=== PATIENT | male | born 1980 | race Caucasian/White ===

== ENCOUNTER 2017-08-10 16:03 | Inpatient (IN) | payer MEDICAID ==
[~2017-08-10] VITALS: Ht 175.3 cm; Wt 85.9 kg
[2017-08-10] MEDS ORDERED: TRAM50TA4 PO (16:10)
[2017-08-10 16:39] LABS: BASOPHILS % (AUTO) 0.3 % (0.0-2.0); EOSINOPHILS % (AUTO) 1.8 % (1.0-6.0); HEMATOCRIT 35.7 % (41-53); HEMOGLOBIN 12.7 g/dL (13.5-17.5); LYMPHOCYTES # (AUTO) 0.3 K/uL (1.0-4.8); LYMPHOCYTES % (AUTO) 11.7 % (22.0-44.0); MEAN CORPUSCULAR HEMOGLOBIN 32.7 pg (26.0-34.0); MEAN CORPUSCULAR HGB CONC 35.6 G/dL (31.0-37.0); MEAN CORPUSCULAR VOLUME 92 fL (80-100); MONOCYTES # (AUTO) 0.4 K/uL (0.1-1.0); MONOCYTES % (AUTO) 14.3 % (2.0-9.0); NEUTROPHILS % (AUTO) 71.9 % (40.0-70.0); PLATELET COUNT (AUTO) 111 K/uL (150-450); RED BLOOD CELL COUNT(AUTO) 3.89 MIL/uL (4.50-5.90); RED CELL DISTRIBUTION WIDTH 17.2 % (11.5-14.5); WHITE BLOOD COUNT (AUTO) 2.8 K/uL (4.5-11.0)
[2017-08-10 17:00] LABS: ANION GAP 8 mmol/L (8-16); CALCIUM, TOTAL 9.3 mg/dL (8.8-10.5); CARBON DIOXIDE 28 mmol/L (22-29); CHLORIDE 107 mmol/L (98-107); CREATININE 0.99 mg/dL (0.60-1.30); GLOMERULAR FILTR. RATE CALC > 60 mL/min (>60); POTASSIUM 3.9 mmol/L (3.5-5.1); SODIUM SERUM 143 mmol/L (136-145); UREA NITROGEN, BLOOD 6 mg/dL (7-18)
[2017-08-10 17:05] LABS: ALANINE AMINOTRANSFERASE 120 U/L (12-78); ALBUMIN 3.8 g/dL (3.4-5.0); ASPARTATE AMINOTRANSFERASE 98 U/L (15-37); BILIRUBIN,TOTAL 0.3 mg/dL (0.1-1.0); TOTAL PROTEIN, SERUM 6.8 g/dL (6.4-8.2)
[2017-08-10 17:37] LABS: RBC MORPHOLOGY COMMENT ABNORMAL RBC MORPH
[2017-08-10] MEDS ORDERED: LORazepam 1 MG TABLET PO ONE (18:30)
[2017-08-10] MEDS ORDERED: TraMADol HCL 50 MG TABLET PO ONE (18:30)
[2017-08-10] MEDS ORDERED: ZOLPIDEM TARTRATE 10 MG TABLET PO PRN (18:45)
[2017-08-10] MEDS ORDERED: HALOPERIDOL 5 MG TABLET PO PRN (18:45)
[2017-08-10] MEDS ORDERED: LORazepam 2 MG TABLET PO PRN (18:45)
[2017-08-10 20:20] VITALS: BP 122/88
[2017-08-10 20:42] LABS: CHOL/HDL RATIO 2.9 (4.2-7.3)
[2017-08-10] MEDS: LITHIUM CARBONATE 300 MG CAPSULE PO SCH (21:26)
[2017-08-10] MEDS: OLANZapine 10 MG TABLET PO SCH (21:26)
[2017-08-10] MEDS ORDERED: IBUPROFEN 600 MG TABLET PO PRN (22:15)
[2017-08-10] MEDS ORDERED: ACETAMINOPHEN 325 MG TABLET PO PRN (22:15)
[2017-08-11 08:30] VITALS: BP 125/86
[2017-08-11] MEDS ORDERED: PETROLATUM,WHITE 71 GM JELLY TP PRN (08:45)
[2017-08-11] MEDS ORDERED: CloNIDine HCL 0.1 MG TABLET PO PRN (08:45)
[2017-08-11] MEDS ORDERED: LOPERAMIDE HCL 2 MG CAPSULE PO PRN (08:45)
[2017-08-11] MEDS ORDERED: BACITRACIN 28.4 GM OINTMENT TP PRN (08:45)
[2017-08-11] MEDS ORDERED: IBUPROFEN 600 MG TABLET PO PRN (08:45)
[2017-08-11] MEDS ORDERED: BENZOCAINE/MENTHOL LOZENGE [8 LOZENGES/PACKET] MM PRN (08:45)
[2017-08-11] MEDS ORDERED: MAGNESIUM HYDROXIDE SUSPENSION 30 ML UDCUP PO PRN (08:45)
[2017-08-11] MEDS ORDERED: ACETAMINOPHEN 325 MG TABLET PO PRN (08:45)
[2017-08-11] MEDS ORDERED: ALBUTEROL SULFATE HFA 90 MCG/PUFF 8 GM INHALER IH PRN (08:45)
[2017-08-11] MEDS ORDERED: ONDANSETRON HCL 4 MG TABLET PO PRN (08:45)
[2017-08-11] MEDS ORDERED: MAG HYDROX/AL HYDROX/SIMETH ES 30 ML SUSPENSION UDCUP PO PRN (08:45)
[2017-08-11] MEDS: LITHIUM CARBONATE 300 MG CAPSULE PO SCH ×2 (09:13→17:38)
[2017-08-11 11:58] VITALS: BP 130/90
[2017-08-11] MEDS: TraMADol HCL 50 MG TABLET PO PRN ×2 (11:58→20:05)
[2017-08-11 20:04] VITALS: BP 128/79
[2017-08-11] MEDS: OLANZapine 10 MG TABLET PO SCH (20:22)
[2017-08-11 21:04] VITALS: BP 119/72
[2017-08-12 06:51] LABS: BASOPHILS % (AUTO) 0.6 % (0.0-2.0); EOSINOPHILS % (AUTO) 3.3 % (1.0-6.0); HEMATOCRIT 36.9 % (41-53); LYMPHOCYTES # (AUTO) 0.7 K/uL (1.0-4.8); LYMPHOCYTES % (AUTO) 34.4 % (22.0-44.0); MEAN CORPUSCULAR HEMOGLOBIN 32.7 pg (26.0-34.0); MEAN CORPUSCULAR HGB CONC 35.2 G/dL (31.0-37.0); MEAN CORPUSCULAR VOLUME 93 fL (80-100); MONOCYTES # (AUTO) 0.3 K/uL (0.1-1.0); MONOCYTES % (AUTO) 14.3 % (2.0-9.0); NEUTROPHILS % (AUTO) 47.4 % (40.0-70.0); PLATELET COUNT (AUTO) 114 K/uL (150-450); RED BLOOD CELL COUNT(AUTO) 3.97 MIL/uL (4.50-5.90); WHITE BLOOD COUNT (AUTO) 2.2 K/uL (4.5-11.0)
[2017-08-12 07:18] LABS: AMYLASE 78 U/L (25-115); ANION GAP 7 mmol/L (8-16); CALCIUM, TOTAL 8.9 mg/dL (8.8-10.5); CARBON DIOXIDE 29 mmol/L (22-29); CHLORIDE 106 mmol/L (98-107); CHOL/HDL RATIO 2.7 (4.2-7.3); CREATININE 0.89 mg/dL (0.60-1.30); GLOMERULAR FILTR. RATE CALC > 60 mL/min (>60); POTASSIUM 3.3 mmol/L (3.5-5.1); SODIUM SERUM 142 mmol/L (136-145); THYROID STIMULATING HORMONE 3.05 uIU/mL (0.36-3.74); UREA NITROGEN, BLOOD 7 mg/dL (7-18)
[2017-08-12 08:34] VITALS: BP 118/71
[2017-08-12] MEDS ORDERED: POTASSIUM CHLORIDE 20 MEQ ER TABLET PO ONE (08:45)
[2017-08-12] MEDS: LITHIUM CARBONATE 300 MG CAPSULE PO SCH ×2 (09:11→17:44)
[2017-08-12] MEDS: CHOLECALCIFEROL (VIT D3) 1,000 UNITS TABLET PO SCH (09:11)
[2017-08-12] MEDS: TraMADol HCL 50 MG TABLET PO PRN ×2 (09:12→18:05)
[2017-08-12 18:00] VITALS: BP 121/74
[2017-08-12 18:38] VITALS: BP 111/67
[2017-08-12] MEDS: OLANZapine 10 MG TABLET PO SCH (20:36)
[2017-08-13 08:58] VITALS: BP 114/65
[2017-08-13] MEDS: TraMADol HCL 50 MG TABLET PO PRN ×2 (09:00→18:21)
[2017-08-13] MEDS: CHOLECALCIFEROL (VIT D3) 1,000 UNITS TABLET PO SCH (09:00)
[2017-08-13] MEDS: LITHIUM CARBONATE 300 MG CAPSULE PO SCH ×2 (09:00→16:34)
[2017-08-13 12:15] LABS: HEPATITIS Bs ANTIGEN SCREEN P Negative (Negative); HEPATITIS C AB SCREEN <0.1 s/co ratio (0.0-0.9)
[2017-08-13 18:22] VITALS: BP 124/73
[2017-08-13] MEDS: OLANZapine 10 MG TABLET PO SCH (20:09)
[2017-08-14] MEDS: CHOLECALCIFEROL (VIT D3) 1,000 UNITS TABLET PO SCH (08:49)
[2017-08-14] MEDS: LITHIUM CARBONATE 300 MG CAPSULE PO SCH ×2 (08:49→17:00)
[2017-08-14 08:54] VITALS: BP 99/62
[2017-08-14] MEDS: TraMADol HCL 50 MG TABLET PO PRN ×2 (08:54→17:58)
[2017-08-14 17:48] VITALS: BP 117/62
[2017-08-14] MEDS: OLANZapine 10 MG TABLET PO SCH (20:29)
[2017-08-15 08:27] VITALS: BP 117/76
[2017-08-15] MEDS: CHOLECALCIFEROL (VIT D3) 1,000 UNITS TABLET PO SCH (09:03)
[2017-08-15] MEDS: LITHIUM CARBONATE 300 MG CAPSULE PO SCH ×2 (09:04→17:52)
[2017-08-15] MEDS: TraMADol HCL 50 MG TABLET PO PRN ×2 (09:04→17:53)
[2017-08-15 16:22] VITALS: BP 113/74
[2017-08-15 17:53] VITALS: BP 120/74
[2017-08-15 18:53] VITALS: BP 126/76
[2017-08-15] MEDS: OLANZapine 10 MG TABLET PO SCH (21:01)
[2017-08-16 08:30] VITALS: BP 119/70
[2017-08-16] MEDS: CHOLECALCIFEROL (VIT D3) 1,000 UNITS TABLET PO SCH (08:59)
[2017-08-16] MEDS: LITHIUM CARBONATE 300 MG CAPSULE PO SCH ×2 (08:59→17:08)
[2017-08-16] MEDS: TraMADol HCL 50 MG TABLET PO PRN ×2 (09:01→17:08)
[2017-08-16] MEDS ORDERED: OLAN10TA3 PO (15:40)
[2017-08-16] MEDS ORDERED: LITH300C3 PO (15:40)
[2017-08-16] MEDS ORDERED: VITAD1000 PO (15:43)
[2017-08-16 17:08] VITALS: BP 126/89
== END 2017-08-16 19:15 | disposition home or self-care (01) | DRG 885 ==
LOC: EMS 16:09 → 3EI 19:00
DX: F31.4 Bipolar disorder, current episode depressed, severe, without psychotic features (principal); D61.818 Other pancytopenia; R45.851 Suicidal ideations; F10.10 Alcohol abuse, uncomplicated; G47.00 Insomnia, unspecified; I10 Essential (primary) hypertension; B19.20 Unspecified viral hepatitis C without hepatic coma; J45.909 Unspecified asthma, uncomplicated; K21.9 Gastro-esophageal reflux disease without esophagitis; Z59.0 Homelessness; Z71.41 Alcohol abuse counseling and surveillance of alcoholic
CPT/HCPCS: 80074; 82306; 83036; 84132; 84443; 87081; 99285; G0480

== ENCOUNTER 2017-09-04 10:13 | Inpatient (IN) | payer MEDICAID ==
[~2017-09-04] VITALS: Ht 175.3 cm; Wt 92.9 kg
[~2017-09-04 10:13] MED LIST: LITH300C3 PO; OLAN10TA3 PO; VITAD1000 PO
[2017-09-04] MEDS ORDERED: PROP10TA73 PO (10:17)
[2017-09-04] MEDS ORDERED: TRAZ-144 PO (10:17)
[2017-09-04] MEDS ORDERED: HALOPERIDOL 5 MG TABLET PO PRN (11:30)
[2017-09-04 11:33] LABS: BASOPHILS # (AUTO) 0.01 K/uL (0.00-0.20); BASOPHILS % (AUTO) 0.3 % (0.0-2.0); EOSINOPHILS # (AUTO) 0.15 K/uL (0.00-0.70); HEMATOCRIT 36.3 % (41-53); HEMOGLOBIN 12.3 g/dL (13.5-17.5); LYMPHOCYTES # (AUTO) 0.8 K/uL (1.0-4.8); LYMPHOCYTES % (AUTO) 18.1 % (22.0-44.0); MEAN CORPUSCULAR HGB CONC 33.9 G/dL (31.0-37.0); MEAN CORPUSCULAR VOLUME 95 fL (80-100); MONOCYTES # (AUTO) 0.4 K/uL (0.1-1.0); MONOCYTES % (AUTO) 9.1 % (2.0-9.0); NEUTROPHILS # (AUTO) 3.1 K/uL (1.8-7.7); NEUTROPHILS % (AUTO) 69.2 % (40.0-70.0); PLATELET COUNT (AUTO) 186 K/uL (150-450); RED BLOOD CELL COUNT(AUTO) 3.84 MIL/uL (4.50-5.90); RED CELL DISTRIBUTION WIDTH 15.1 % (11.5-14.5)
[2017-09-04 11:39] LABS: ANION GAP 7 mmol/L (8-16); CALCIUM, TOTAL 9.2 mg/dL (8.8-10.5); CARBON DIOXIDE 29 mmol/L (22-29); CHLORIDE 109 mmol/L (98-107); CREATININE 0.94 mg/dL (0.60-1.30); GLOMERULAR FILTR. RATE CALC > 60 mL/min (>60); GLUCOSE,RANDOM 98 mg/dL (70-110); POTASSIUM 4.3 mmol/L (3.5-5.1); SODIUM SERUM 145 mmol/L (136-145); UREA NITROGEN, BLOOD 15 mg/dL (7-18)
[2017-09-04 11:42] LABS: AMPHET/METH SCREEN,URINE NEGATIVE (NEGATIVE); BARBITURATE SCREEN, URINE NEGATIVE (NEGATIVE); BENZODIAZEPINES SCREEN,URINE NEGATIVE (NEGATIVE); CANNABINOID SCREEN,URINE NEGATIVE (NEGATIVE); COCAINE SCREEN,URINE NEGATIVE (NEGATIVE); METHADONE SCREEN, URINE NEGATIVE (NEGATIVE); OPIATE SCREEN,URINE NEGATIVE (NEGATIVE)
[2017-09-04 11:45] LABS: ALANINE AMINOTRANSFERASE 26 U/L (12-78); ALBUMIN 3.8 g/dL (3.4-5.0); ALKALINE PHOSPHATASE 78 U/L (46-116); ASPARTATE AMINOTRANSFERASE 12 U/L (15-37); BILIRUBIN,TOTAL 0.3 mg/dL (0.1-1.0); TOTAL PROTEIN, SERUM 6.9 g/dL (6.4-8.2)
[2017-09-04 11:46] LABS: PHENCYCLIDINE SCREEN,URINE NEGATIVE (NEGATIVE)
[2017-09-04 16:18] VITALS: BP 113/65
[2017-09-04] MEDS ORDERED: IBUPROFEN 600 MG TABLET PO PRN (16:45)
[2017-09-04] MEDS ORDERED: ACETAMINOPHEN 325 MG TABLET PO PRN (16:45)
[2017-09-04 16:52] VITALS: BP 119/72
[2017-09-04] MEDS: LORazepam 2 MG TABLET PO PRN (16:54)
[2017-09-04] MEDS: TraMADol HCL 50 MG TABLET PO PRN (16:54)
[2017-09-04 17:54] VITALS: BP 114/69
[2017-09-04] MEDS: ZOLPIDEM TARTRATE 10 MG TABLET PO PRN (20:23)
[2017-09-05 03:45] VITALS: BP 120/82
[2017-09-05] MEDS: TraMADol HCL 50 MG TABLET PO PRN ×3 (03:47→19:44)
[2017-09-05] MEDS: LORazepam 2 MG TABLET PO PRN ×3 (05:03→19:44)
[2017-09-05] MEDS ORDERED: PNEUMOCOCCAL VACCINE POLYVALENT 0.5 ML VIAL [PPSV23] IM ONE (06:00)
[2017-09-05 06:02] VITALS: BP 110/65
[2017-09-05 08:24] VITALS: BP 115/66
[2017-09-05] MEDS: CHOLECALCIFEROL (VIT D3) 1,000 UNITS TABLET PO SCH (08:26)
[2017-09-05] MEDS: PANTOPRAZOLE SODIUM 40 MG DR TABLET PO SCH (08:26)
[2017-09-05 08:32] LABS: CHOL/HDL RATIO 3.1 (4.2-7.3)
[2017-09-05 11:53] VITALS: BP 107/76
[2017-09-05] MEDS ORDERED: BENZOCAINE/MENTHOL LOZENGE MM PRN (15:15)
[2017-09-05] MEDS ORDERED: CloNIDine HCL 0.1 MG TABLET PO PRN (15:15)
[2017-09-05] MEDS ORDERED: LOPERAMIDE HCL 2 MG CAPSULE PO PRN (15:15)
[2017-09-05] MEDS ORDERED: PETROLATUM,WHITE 71 GM JELLY TP PRN (15:15)
[2017-09-05] MEDS ORDERED: ONDANSETRON HCL 4 MG TABLET PO PRN (15:15)
[2017-09-05] MEDS ORDERED: MAG HYDROX/AL HYDROX/SIMETH ES 30 ML SUSPENSION UDCUP PO PRN (15:15)
[2017-09-05] MEDS ORDERED: ALBUTEROL SULFATE HFA 90 MCG/PUFF 8 GM INHALER IH PRN (15:15)
[2017-09-05] MEDS ORDERED: BACITRACIN 28.4 GM OINTMENT TP PRN (15:15)
[2017-09-05 16:00] VITALS: BP 111/72
[2017-09-05] MEDS: LITHIUM CARBONATE 300 MG CAPSULE PO SCH (16:00)
[2017-09-05] MEDS: DOCUSATE SODIUM 100 MG CAPSULE PO SCH (16:10)
[2017-09-05] MEDS: OLANZapine 10 MG TABLET PO SCH (20:06)
[2017-09-05] MEDS: TraZODone HCL 50 MG TABLET PO SCH (20:06)
[2017-09-06] MEDS: TraMADol HCL 50 MG TABLET PO PRN ×2 (05:59→14:28)
[2017-09-06 06:16] VITALS: BP_SYST 107; BP_SYST 114; BP_DIAS 72
[2017-09-06] MEDS: LORazepam 2 MG TABLET PO PRN ×3 (06:25→15:47)
[2017-09-06 08:13] VITALS: BP 114/71
[2017-09-06] MEDS: DOCUSATE SODIUM 100 MG CAPSULE PO SCH (08:38)
[2017-09-06] MEDS: PANTOPRAZOLE SODIUM 40 MG DR TABLET PO SCH (08:38)
[2017-09-06] MEDS: LITHIUM CARBONATE 300 MG CAPSULE PO SCH ×2 (08:38→14:18)
[2017-09-06] MEDS: CHOLECALCIFEROL (VIT D3) 1,000 UNITS TABLET PO SCH (08:38)
[2017-09-06] MEDS: OMEGA-3/DHA/EPA/FISH OIL 1,000 MG CAPSULE PO SCH (08:38)
[2017-09-06 14:28] VITALS: BP 121/67
[2017-09-06 16:00] VITALS: BP 126/72
[2017-09-06] MEDS: MAGNESIUM HYDROXIDE SUSPENSION 30 ML UDCUP PO PRN (16:00)
[2017-09-06] MEDS: TraZODone HCL 50 MG TABLET PO SCH (20:04)
[2017-09-06] MEDS: OLANZapine 10 MG TABLET PO SCH (20:05)
[2017-09-07 02:15] VITALS: BP 107/75
[2017-09-07] MEDS: TraMADol HCL 50 MG TABLET PO PRN ×3 (03:35→20:02)
[2017-09-07] MEDS: LORazepam 2 MG TABLET PO PRN ×4 (03:35→17:49)
[2017-09-07] MEDS: MULTIVITAMINS WITH IRON TABLET PO SCH (06:55)
[2017-09-07 08:36] VITALS: BP 116/70
[2017-09-07] MEDS: OMEPRAZOLE 20 MG CAPSULE PO SCH (08:56)
[2017-09-07] MEDS: CHOLECALCIFEROL (VIT D3) 1,000 UNITS TABLET PO SCH (08:56)
[2017-09-07] MEDS: DOCUSATE SODIUM 100 MG CAPSULE PO SCH (08:56)
[2017-09-07] MEDS: LITHIUM CARBONATE 300 MG CAPSULE PO SCH ×2 (08:56→15:56)
[2017-09-07] MEDS: OMEGA-3/DHA/EPA/FISH OIL 1,000 MG CAPSULE PO SCH (08:57)
[2017-09-07 16:32] VITALS: BP 120/79
[2017-09-07 20:02] VITALS: BP 124/76
[2017-09-07] MEDS: OLANZapine 10 MG TABLET PO SCH (20:02)
[2017-09-07] MEDS: TraZODone HCL 50 MG TABLET PO SCH (20:02)
[2017-09-08 05:11] VITALS: BP 125/68
[2017-09-08] MEDS: TraMADol HCL 50 MG TABLET PO PRN ×3 (05:13→20:32)
[2017-09-08] MEDS: LORazepam 2 MG TABLET PO PRN ×4 (05:13→20:58)
[2017-09-08] MEDS: MULTIVITAMINS WITH IRON TABLET PO SCH (06:57)
[2017-09-08 08:46] VITALS: BP 108/69
[2017-09-08] MEDS: OMEPRAZOLE 20 MG CAPSULE PO SCH (09:08)
[2017-09-08] MEDS: LITHIUM CARBONATE 300 MG CAPSULE PO SCH ×2 (09:08→14:17)
[2017-09-08] MEDS: CHOLECALCIFEROL (VIT D3) 1,000 UNITS TABLET PO SCH (09:08)
[2017-09-08] MEDS: DOCUSATE SODIUM 100 MG CAPSULE PO SCH (09:09)
[2017-09-08] MEDS: OMEGA-3/DHA/EPA/FISH OIL 1,000 MG CAPSULE PO SCH (09:09)
[2017-09-08 13:17] VITALS: BP 114/68
[2017-09-08 16:28] VITALS: BP 112/70
[2017-09-08] MEDS: MAGNESIUM HYDROXIDE SUSPENSION 30 ML UDCUP PO PRN (16:35)
[2017-09-08] MEDS: OLANZapine 10 MG TABLET PO SCH (20:23)
[2017-09-08] MEDS: TraZODone HCL 50 MG TABLET PO SCH (20:23)
[2017-09-09 05:18] VITALS: BP 115/69
[2017-09-09] MEDS: LORazepam 2 MG TABLET PO PRN ×3 (05:21→16:05)
[2017-09-09] MEDS: TraMADol HCL 50 MG TABLET PO PRN ×3 (05:22→22:12)
[2017-09-09] MEDS: MULTIVITAMINS WITH IRON TABLET PO SCH (07:05)
[2017-09-09 08:03] VITALS: BP 108/62
[2017-09-09] MEDS: DOCUSATE SODIUM 100 MG CAPSULE PO SCH (09:09)
[2017-09-09] MEDS: OMEGA-3/DHA/EPA/FISH OIL 1,000 MG CAPSULE PO SCH (09:09)
[2017-09-09] MEDS: OMEPRAZOLE 20 MG CAPSULE PO SCH (09:09)
[2017-09-09] MEDS: CHOLECALCIFEROL (VIT D3) 1,000 UNITS TABLET PO SCH (09:09)
[2017-09-09] MEDS: LITHIUM CARBONATE 300 MG CAPSULE PO SCH ×2 (09:09→15:01)
[2017-09-09] MEDS: MAGNESIUM HYDROXIDE SUSPENSION 30 ML UDCUP PO PRN (11:29)
[2017-09-09 13:50] VITALS: BP 128/72
[2017-09-09 16:25] VITALS: BP 117/77
[2017-09-09] MEDS: TraZODone HCL 50 MG TABLET PO SCH (20:20)
[2017-09-09] MEDS: OLANZapine 10 MG TABLET PO SCH (20:20)
[2017-09-10 05:00] VITALS: BP 106/72
[2017-09-10] MEDS: LORazepam 2 MG TABLET PO PRN ×3 (05:02→17:20)
[2017-09-10] MEDS: MULTIVITAMINS WITH IRON TABLET PO SCH (06:38)
[2017-09-10] MEDS: TraMADol HCL 50 MG TABLET PO PRN ×2 (07:09→15:57)
[2017-09-10 08:04] VITALS: BP 121/62
[2017-09-10] MEDS: OMEGA-3/DHA/EPA/FISH OIL 1,000 MG CAPSULE PO SCH (08:15)
[2017-09-10] MEDS: OMEPRAZOLE 20 MG CAPSULE PO SCH (08:15)
[2017-09-10] MEDS: DOCUSATE SODIUM 100 MG CAPSULE PO SCH (08:16)
[2017-09-10] MEDS: CHOLECALCIFEROL (VIT D3) 1,000 UNITS TABLET PO SCH (08:16)
[2017-09-10] MEDS: LITHIUM CARBONATE 300 MG CAPSULE PO SCH ×2 (08:16→14:51)
[2017-09-10] MEDS: MAGNESIUM HYDROXIDE SUSPENSION 30 ML UDCUP PO PRN (08:21)
[2017-09-10] MEDS ORDERED: MAGNESIUM CITRATE 300 ML ORAL SOLUTION PO PRN (09:30)
[2017-09-10 15:55] VITALS: BP 114/69
[2017-09-10 16:38] VITALS: BP 117/65
[2017-09-10] MEDS: TraZODone HCL 50 MG TABLET PO SCH (20:03)
[2017-09-10] MEDS: OLANZapine 10 MG TABLET PO SCH (20:03)
[2017-09-10] MEDS: ZOLPIDEM TARTRATE 10 MG TABLET PO PRN (20:30)
[2017-09-11 06:25] VITALS: BP 120/77
[2017-09-11] MEDS: LORazepam 2 MG TABLET PO PRN ×4 (06:34→20:50)
[2017-09-11] MEDS: TraMADol HCL 50 MG TABLET PO PRN ×2 (06:35→14:45)
[2017-09-11] MEDS: MULTIVITAMINS WITH IRON TABLET PO SCH (06:55)
[2017-09-11 08:12] VITALS: BP 109/66
[2017-09-11] MEDS: DOCUSATE SODIUM 100 MG CAPSULE PO SCH (08:41)
[2017-09-11] MEDS: LITHIUM CARBONATE 300 MG CAPSULE PO SCH ×2 (08:41→14:26)
[2017-09-11] MEDS: CHOLECALCIFEROL (VIT D3) 1,000 UNITS TABLET PO SCH (08:41)
[2017-09-11] MEDS: OMEPRAZOLE 20 MG CAPSULE PO SCH (08:41)
[2017-09-11] MEDS: OMEGA-3/DHA/EPA/FISH OIL 1,000 MG CAPSULE PO SCH (08:41)
[2017-09-11 10:51] VITALS: BP 114/72
[2017-09-11 14:45] VITALS: BP 117/70
[2017-09-11 16:11] VITALS: BP 102/67
[2017-09-11] MEDS: OLANZapine 10 MG TABLET PO SCH (20:24)
[2017-09-11] MEDS: TraZODone HCL 50 MG TABLET PO SCH (20:24)
[2017-09-12 00:33] VITALS: BP 100/60
[2017-09-12 05:24] VITALS: BP 118/65
[2017-09-12] MEDS: TraMADol HCL 50 MG TABLET PO PRN ×3 (05:27→22:05)
[2017-09-12] MEDS: MULTIVITAMINS WITH IRON TABLET PO SCH (05:51)
[2017-09-12] MEDS: LORazepam 2 MG TABLET PO PRN ×4 (06:51→20:40)
[2017-09-12 08:25] VITALS: BP 100/68
[2017-09-12] MEDS: CHOLECALCIFEROL (VIT D3) 1,000 UNITS TABLET PO SCH (08:43)
[2017-09-12] MEDS: LITHIUM CARBONATE 300 MG CAPSULE PO SCH ×2 (08:43→14:00)
[2017-09-12] MEDS: DOCUSATE SODIUM 100 MG CAPSULE PO SCH (08:43)
[2017-09-12] MEDS: OMEGA-3/DHA/EPA/FISH OIL 1,000 MG CAPSULE PO SCH (08:44)
[2017-09-12] MEDS: OMEPRAZOLE 20 MG CAPSULE PO SCH (08:46)
[2017-09-12 16:00] VITALS: BP 115/72
[2017-09-12] MEDS: TraZODone HCL 50 MG TABLET PO SCH (20:25)
[2017-09-12] MEDS: OLANZapine 10 MG TABLET PO SCH (20:25)
[2017-09-12 22:05] VITALS: BP 111/68
[2017-09-13 00:50] VITALS: BP 104/64
[2017-09-13] MEDS: MULTIVITAMINS WITH IRON TABLET PO SCH (06:44)
[2017-09-13 06:50] VITALS: BP 110/68
[2017-09-13] MEDS: TraMADol HCL 50 MG TABLET PO PRN ×2 (06:51→14:51)
[2017-09-13] MEDS: LORazepam 2 MG TABLET PO PRN ×4 (06:51→20:08)
[2017-09-13] MEDS: OMEGA-3/DHA/EPA/FISH OIL 1,000 MG CAPSULE PO SCH (08:06)
[2017-09-13] MEDS: DOCUSATE SODIUM 100 MG CAPSULE PO SCH (08:06)
[2017-09-13] MEDS: OMEPRAZOLE 20 MG CAPSULE PO SCH (08:06)
[2017-09-13] MEDS: LITHIUM CARBONATE 300 MG CAPSULE PO SCH ×2 (08:06→15:04)
[2017-09-13] MEDS: CHOLECALCIFEROL (VIT D3) 1,000 UNITS TABLET PO SCH (08:06)
[2017-09-13 08:26] VITALS: BP 104/69
[2017-09-13 14:52] VITALS: BP 119/76
[2017-09-13 16:00] VITALS: BP 110/69
[2017-09-13] MEDS: OLANZapine 10 MG TABLET PO SCH (20:08)
[2017-09-13] MEDS: TraZODone HCL 50 MG TABLET PO SCH (20:08)
[2017-09-13] MEDS: ZOLPIDEM TARTRATE 10 MG TABLET PO PRN (20:08)
[2017-09-14 03:48] VITALS: BP 100/67
[2017-09-14] MEDS: MULTIVITAMINS WITH IRON TABLET PO SCH (06:42)
[2017-09-14] MEDS: TraMADol HCL 50 MG TABLET PO PRN (06:50)
[2017-09-14] MEDS: LORazepam 2 MG TABLET PO PRN (06:50)
[2017-09-14] MEDS: DOCUSATE SODIUM 100 MG CAPSULE PO SCH (08:06)
[2017-09-14] MEDS: OMEGA-3/DHA/EPA/FISH OIL 1,000 MG CAPSULE PO SCH (08:06)
[2017-09-14] MEDS: CHOLECALCIFEROL (VIT D3) 1,000 UNITS TABLET PO SCH (08:06)
[2017-09-14] MEDS: LITHIUM CARBONATE 300 MG CAPSULE PO SCH (08:06)
[2017-09-14] MEDS: OMEPRAZOLE 20 MG CAPSULE PO SCH (08:06)
[2017-09-14 08:42] VITALS: BP 108/60
[2017-09-14] MEDS ORDERED: OMEP20 PO (10:24)
[2017-09-14] MEDS ORDERED: TRAZ-144 PO (10:24)
[2017-09-14] MEDS ORDERED: OLAN10TA3 PO (10:24)
[2017-09-14] MEDS ORDERED: LITH600 PO ×2 (10:24)
[2017-09-14] MEDS ORDERED: OMEG-135 PO (10:47)
== END 2017-09-14 13:15 | disposition home or self-care (01) | DRG 753 ==
LOC: EMS 10:18 → B2S 12:05
PROC: 3E0234Z Introduction of Serum, Toxoid and Vaccine into Muscle, Percutaneous Approach (ICD-10-PCS; principal; 2017-09-05)
DX: F31.4 Bipolar disorder, current episode depressed, severe, without psychotic features (principal); K85.90 Acute pancreatitis without necrosis or infection, unspecified; R45.851 Suicidal ideations; I10 Essential (primary) hypertension; B19.20 Unspecified viral hepatitis C without hepatic coma; F29 Unspecified psychosis not due to a substance or known physiological condition; G47.00 Insomnia, unspecified; J45.909 Unspecified asthma, uncomplicated; K21.9 Gastro-esophageal reflux disease without esophagitis; K59.00 Constipation, unspecified; F10.20 Alcohol dependence, uncomplicated; K52.9 Noninfective gastroenteritis and colitis, unspecified; E55.9 Vitamin D deficiency, unspecified; D64.9 Anemia, unspecified; G89.29 Other chronic pain; M54.9 Dorsalgia, unspecified; Z79.899 Other long term (current) drug therapy; Z23 Encounter for immunization
CPT/HCPCS: 87081; 90471; 99285; G0480

== ENCOUNTER 2018-09-08 13:02 | Inpatient (IN) | payer MEDICAID ==
[~2018-09-08] VITALS: Ht 175.3 cm; Wt 95.7 kg
[~2018-09-08 13:02] MED LIST changes: -LITH300C3 PO; +LITH600 PO; +OMEG-135 PO; +OMEP20 PO; +TRAZ-219 PO; -VITAD1000 PO
[2018-09-08] MEDS ORDERED: GABA-531 PO (14:30)
[2018-09-08 15:04] LABS: APPEARANCE,URINE CLEAR (CLEAR); BILIRUBIN,URINE NEGATIVE (NEGATIVE); GLUCOSE, URINE (UA) NEGATIVE (NEGATIVE); KETONES,URINE TRACE mg/dL (NEGATIVE); LEUKOCYTE ESTERASE ,URINE NEGATIVE (NEGATIVE); NITRATE,URINE NEGATIVE (NEGATIVE); OCCULT BLOOD,URINE TRACE (NEGATIVE); PROTEIN,URINE POS 1+ (NEGATIVE); UROBILINOGEN,URINE 0.2 mg/dL (<=1.0)
[2018-09-08 15:10] LABS: AMPHET/METH SCREEN,URINE NEGATIVE (NEGATIVE); BARBITURATE SCREEN, URINE NEGATIVE (NEGATIVE); BENZODIAZEPINES SCREEN,URINE NEGATIVE (NEGATIVE); CANNABINOID SCREEN,URINE NEGATIVE (NEGATIVE); COCAINE SCREEN,URINE NEGATIVE (NEGATIVE); METHADONE SCREEN, URINE NEGATIVE (NEGATIVE); OPIATE SCREEN,URINE NEGATIVE (NEGATIVE); PHENCYCLIDINE SCREEN,URINE NEGATIVE (NEGATIVE)
[2018-09-08 15:42] LABS: ANION GAP 13 mmol/L (8-16); CALCIUM, TOTAL 8.7 mg/dL (8.8-10.5); CARBON DIOXIDE 26 mmol/L (22-29); CHLORIDE 102 mmol/L (98-107); CREATININE 0.83 mg/dL (0.60-1.30); GLOMERULAR FILTR. RATE CALC > 60 mL/min (>60); GLUCOSE,RANDOM 75 mg/dL (70-110); POTASSIUM 3.9 mmol/L (3.5-5.1); SODIUM SERUM 141 mmol/L (136-145); UREA NITROGEN, BLOOD 8 mg/dL (7-18)
[2018-09-08 15:44] LABS: BACTERIA,URINE None Seen /HPF (None Seen); RBC,URINE 0-2 /HPF (0-2); SQUAMOUS EPITHELIAL CELL,UR Rare /LPF (None Seen); WBC,URINE None Seen /HPF (0-5)
[2018-09-08 15:45] LABS: URIC ACID CRYSTALS,URINE Rare /LPF (None Seen)
[2018-09-08 15:48] LABS: ALANINE AMINOTRANSFERASE 162 U/L (12-78); ALBUMIN 4.1 g/dL (3.4-5.0); ALKALINE PHOSPHATASE 84 U/L (46-116); ASPARTATE AMINOTRANSFERASE 183 U/L (15-37); BILIRUBIN,TOTAL 0.5 mg/dL (0.1-1.0); LIPASE 487 U/L (73-393); TOTAL PROTEIN, SERUM 7.8 g/dL (6.4-8.2)
[2018-09-08 15:55] LABS: BASOPHILS % (AUTO) 0.7 % (0.0-2.0); EOSINOPHILS % (AUTO) 1.6 % (1.0-6.0); HEMATOCRIT 43.2 % (41-53); HEMOGLOBIN 14.8 g/dL (13.5-17.5); LYMPHOCYTES # (AUTO) 0.7 K/uL (1.0-4.8); LYMPHOCYTES % (AUTO) 32.9 % (22.0-44.0); MEAN CORPUSCULAR HEMOGLOBIN 32.5 pg (26.0-34.0); MEAN CORPUSCULAR HGB CONC 34.2 G/dL (31.0-37.0); MEAN CORPUSCULAR VOLUME 95 fL (80-100); MONOCYTES # (AUTO) 0.3 K/uL (0.1-1.0); MONOCYTES % (AUTO) 13.6 % (2.0-9.0); NEUTROPHILS # (AUTO) 1.1 K/uL (1.8-7.7); NEUTROPHILS % (AUTO) 51.2 % (40.0-70.0); PLATELET COUNT (AUTO) 88 K/uL (150-450); RED BLOOD CELL COUNT(AUTO) 4.54 MIL/uL (4.50-5.90); RED CELL DISTRIBUTION WIDTH 14.4 % (11.5-14.5)
[2018-09-08 15:56] LABS: LITHIUM < 0.20 mmol/L (0.60-1.20)
[2018-09-08] MEDS ORDERED: SODIUM CHLORIDE 0.9% 1,000 ML IV ONE ×2 (16:15→17:30)
[2018-09-08] MEDS ORDERED: MORPHINE SULFATE 4 MG/ML SYRINGE IVP ONE (16:15)
[2018-09-08] MEDS ORDERED: ACETAMINOPHEN 325 MG TABLET PO PRN ×2 (17:30→18:15)
[2018-09-08] MEDS ORDERED: ONDANSETRON HCL 4 MG/2 ML VIAL IVP PRN ×2 (17:30→18:15)
[2018-09-08] MEDS ORDERED: DIAZEPAM 5 MG/ML 2 ML SYRINGE IVP PRN (17:30)
[2018-09-08] MEDS ORDERED: IPRATROPIUM BROMIDE 0.5 MG/2.5 ML NEB SOLUTION NEB PRN (18:15)
[2018-09-08] MEDS ORDERED: ALBUTEROL SULFATE 2.5 MG/0.5 ML NEB SOLUTION NEB PRN (18:15)
[2018-09-08] MEDS ORDERED: MAGNESIUM HYDROXIDE SUSPENSION 30 ML UDCUP PO PRN (18:15)
[2018-09-08] MEDS ORDERED: BISACODYL 10 MG RECTAL RECTAL SUPPOSITORY PR PRN (18:15)
[2018-09-08] MEDS: DEXTROSE 5%-0.45% SODIUM CHL 1,000 ML IV SCH (18:43)
[2018-09-08] MEDS: MORPHINE SULFATE 4 MG/ML SYRINGE IVP PRN (20:23)
[2018-09-08] MEDS: DOCUSATE SODIUM 100 MG CAPSULE PO SCH (21:00)
[2018-09-08] MEDS ORDERED: TraZODone HCL 50 MG TABLET PO SCH (21:00)
[2018-09-08 21:33] VITALS: BP 130/78
[2018-09-08] MEDS: OLANZapine 10 MG TABLET PO SCH (21:58)
[2018-09-08 23:30] VITALS: BP 115/63
[2018-09-08] MEDS: ChlordiazePOXIDE HCL 25 MG CAPSULE PO SCH (23:37)
[2018-09-08] MEDS: HEPARIN SODIUM,PORCINE 5,000 UNITS/ML VIAL SQ SCH (23:37)
[2018-09-09] VITALS (7 sets, daily range): BP systolic 112–134; BP diastolic 71–83
[2018-09-09] MEDS: DEXTROSE 5%-0.45% SODIUM CHL 1,000 ML IV SCH ×3 (02:43→18:03)
[2018-09-09] MEDS: ChlordiazePOXIDE HCL 25 MG CAPSULE PO SCH ×2 (05:47→12:09)
[2018-09-09 07:07] LABS: BASOPHILS % (AUTO) 1.1 % (0.0-2.0); EOSINOPHILS % (AUTO) 2.2 % (1.0-6.0); HEMATOCRIT 38.6 % (41-53); HEMOGLOBIN 13.3 g/dL (13.5-17.5); LYMPHOCYTES # (AUTO) 0.7 K/uL (1.0-4.8); LYMPHOCYTES % (AUTO) 44.2 % (22.0-44.0); MEAN CORPUSCULAR HEMOGLOBIN 32.9 pg (26.0-34.0); MEAN CORPUSCULAR HGB CONC 34.4 G/dL (31.0-37.0); MEAN CORPUSCULAR VOLUME 96 fL (80-100); MONOCYTES # (AUTO) 0.2 K/uL (0.1-1.0); MONOCYTES % (AUTO) 12.2 % (2.0-9.0); NEUTROPHILS # (AUTO) 0.6 K/uL (1.8-7.7); NEUTROPHILS % (AUTO) 40.3 % (40.0-70.0); PLATELET COUNT (AUTO) 63 K/uL (150-450); RED BLOOD CELL COUNT(AUTO) 4.04 MIL/uL (4.50-5.90); RED CELL DISTRIBUTION WIDTH 14.2 % (11.5-14.5)
[2018-09-09 07:16] LABS: ALANINE AMINOTRANSFERASE 133 U/L (12-78); ALBUMIN 3.4 g/dL (3.4-5.0); ALKALINE PHOSPHATASE 61 U/L (46-116); AMYLASE 154 U/L (25-115); ANION GAP 11 mmol/L (8-16); ASPARTATE AMINOTRANSFERASE 121 U/L (15-37); BILIRUBIN,TOTAL 0.5 mg/dL (0.1-1.0); CALCIUM, TOTAL 7.7 mg/dL (8.8-10.5); CARBON DIOXIDE 27 mmol/L (22-29); CHLORIDE 104 mmol/L (98-107); CREATININE 0.79 mg/dL (0.60-1.30); GLOMERULAR FILTR. RATE CALC > 60 mL/min (>60); GLUCOSE,RANDOM 92 mg/dL (70-110); LIPASE 1407 U/L (73-393); POTASSIUM 3.4 mmol/L (3.5-5.1); SODIUM SERUM 142 mmol/L (136-145); TOTAL PROTEIN, SERUM 6.4 g/dL (6.4-8.2); UREA NITROGEN, BLOOD 8 mg/dL (7-18)
[2018-09-09] MEDS: HEPARIN SODIUM,PORCINE 5,000 UNITS/ML VIAL SQ SCH ×3 (08:29→23:00)
[2018-09-09] MEDS: MORPHINE SULFATE 4 MG/ML SYRINGE IVP PRN ×3 (08:29→20:43)
[2018-09-09] MEDS: DOCUSATE SODIUM 100 MG CAPSULE PO SCH ×2 (08:30→20:01)
[2018-09-09] MEDS: FOLIC ACID 1 MG TABLET PO SCH (08:30)
[2018-09-09] MEDS: MULTIVITAMINS, THERAPEUTIC TABLET PO SCH (08:30)
[2018-09-09] MEDS: PANTOPRAZOLE SODIUM 40 MG/VIAL IVP SCH (08:30)
[2018-09-09] MEDS ORDERED: THIAMINE HCL 100 MG TABLET PO SCH (09:00)
[2018-09-09] MEDS ORDERED: GABAPENTIN 300 MG CAPSULE PO SCH (09:00)
[2018-09-09] MEDS ORDERED: OMEPRAZOLE 20 MG CAPSULE PO SCH (09:00)
[2018-09-09] MEDS ORDERED: LITHIUM CARBONATE 600 MG CAPSULE PO SCH (09:00)
[2018-09-09] MEDS: LORazepam 2 MG/ML VIAL IVP PRN (10:40)
[2018-09-09] MEDS ORDERED: ESZOPICLONE 3 MG TABLET PO PRN (17:30)
[2018-09-09] MEDS: LORazepam 2 MG TABLET PO PRN ×2 (18:05→22:38)
[2018-09-09] MEDS: OLANZapine 10 MG TABLET PO SCH (20:01)
[2018-09-09] MEDS: ACAMPROSATE CALCIUM 333 MG DR TABLET PO SCH (20:01)
[2018-09-09] MEDS: GABAPENTIN 300 MG CAPSULE PO SCH (20:01)
[2018-09-10] VITALS (7 sets, daily range): BP systolic 121–144; BP diastolic 73–95
[2018-09-10] MEDS: LORazepam 2 MG TABLET PO PRN (02:41)
[2018-09-10] MEDS: DEXTROSE 5%-0.45% SODIUM CHL 1,000 ML IV SCH ×2 (02:42→11:00)
[2018-09-10 06:04] LABS: BASOPHILS % (AUTO) 0.6 % (0.0-2.0); EOSINOPHILS % (AUTO) 2.1 % (1.0-6.0); HEMATOCRIT 38.9 % (41-53); HEMOGLOBIN 13.9 g/dL (13.5-17.5); LYMPHOCYTES # (AUTO) 0.4 K/uL (1.0-4.8); LYMPHOCYTES % (AUTO) 18.3 % (22.0-44.0); MEAN CORPUSCULAR HEMOGLOBIN 33.4 pg (26.0-34.0); MEAN CORPUSCULAR HGB CONC 35.6 G/dL (31.0-37.0); MEAN CORPUSCULAR VOLUME 94 fL (80-100); MONOCYTES # (AUTO) 0.3 K/uL (0.1-1.0); MONOCYTES % (AUTO) 12.1 % (2.0-9.0); NEUTROPHILS # (AUTO) 1.5 K/uL (1.8-7.7); NEUTROPHILS % (AUTO) 66.9 % (40.0-70.0); PLATELET COUNT (AUTO) 59 K/uL (150-450); RED BLOOD CELL COUNT(AUTO) 4.15 MIL/uL (4.50-5.90); RED CELL DISTRIBUTION WIDTH 14.1 % (11.5-14.5)
[2018-09-10] MEDS ORDERED: LORazepam 2 MG TABLET PO PRN (07:00)
[2018-09-10 07:14] LABS: ALANINE AMINOTRANSFERASE 119 U/L (12-78); ALBUMIN 3.5 g/dL (3.4-5.0); ALKALINE PHOSPHATASE 62 U/L (46-116); AMYLASE 79 U/L (25-115); ANION GAP 8 mmol/L (8-16); ASPARTATE AMINOTRANSFERASE 97 U/L (15-37); CALCIUM, TOTAL 8.6 mg/dL (8.8-10.5); CARBON DIOXIDE 28 mmol/L (22-29); CHLORIDE 99 mmol/L (98-107); CREATININE 0.88 mg/dL (0.60-1.30); GLOMERULAR FILTR. RATE CALC > 60 mL/min (>60); GLUCOSE,RANDOM 107 mg/dL (70-110); LIPASE 333 U/L (73-393); POTASSIUM 3.4 mmol/L (3.5-5.1); SODIUM SERUM 135 mmol/L (136-145); TOTAL PROTEIN, SERUM 6.7 g/dL (6.4-8.2); UREA NITROGEN, BLOOD 5 mg/dL (7-18)
[2018-09-10] MEDS: FOLIC ACID 1 MG TABLET PO SCH (08:17)
[2018-09-10] MEDS: GABAPENTIN 300 MG CAPSULE PO SCH ×4 (08:17→20:24)
[2018-09-10] MEDS: MULTIVITAMINS, THERAPEUTIC TABLET PO SCH (08:17)
[2018-09-10] MEDS: DOCUSATE SODIUM 100 MG CAPSULE PO SCH ×2 (08:17→20:24)
[2018-09-10] MEDS: ACAMPROSATE CALCIUM 333 MG DR TABLET PO SCH ×3 (08:18→20:24)
[2018-09-10] MEDS: THIAMINE HCL 100 MG/ML 2ML VIAL IVP SCH (08:18)
[2018-09-10] MEDS: LORazepam 2 MG TABLET PO SCH ×4 (08:18→20:24)
[2018-09-10] MEDS: PANTOPRAZOLE SODIUM 40 MG/VIAL IVP SCH (08:19)
[2018-09-10] MEDS: HEPARIN SODIUM,PORCINE 5,000 UNITS/ML VIAL SQ SCH ×2 (08:20→16:00)
[2018-09-10] MEDS: MORPHINE SULFATE 4 MG/ML SYRINGE IVP PRN (08:25)
[2018-09-10] MEDS ORDERED: FOLIC ACID 1 MG TABLET PO SCH (09:00)
[2018-09-10] MEDS ORDERED: SODIUM CHLORIDE 0.9% 100 ML ONE (10:53)
[2018-09-10] MEDS ORDERED: POTASSIUM CHL 10 MEQ/WATER 50 ML IV PRN (11:45)
[2018-09-10] MEDS: POTASSIUM CHLORIDE 20 MEQ ER TABLET PO PRN ×2 (13:37→13:45)
[2018-09-10] MEDS: OLANZapine 10 MG TABLET PO SCH (20:24)
[2018-09-10] MEDS: OxyCODONE HCL/ACETAMINOPHEN 5-325 MG TABLET PO PRN (22:25)
[2018-09-11 05:25] VITALS: BP 116/77
[2018-09-11] MEDS: MORPHINE SULFATE 4 MG/ML SYRINGE IVP PRN ×2 (05:49→10:49)
[2018-09-11 06:51] LABS: BASOPHILS % (AUTO) 0.6 % (0.0-2.0); EOSINOPHILS % (AUTO) 2.6 % (1.0-6.0); HEMATOCRIT 39.2 % (41-53); HEMOGLOBIN 14.4 g/dL (13.5-17.5); LYMPHOCYTES # (AUTO) 0.5 K/uL (1.0-4.8); LYMPHOCYTES % (AUTO) 28.6 % (22.0-44.0); MEAN CORPUSCULAR HEMOGLOBIN 34.6 pg (26.0-34.0); MEAN CORPUSCULAR HGB CONC 36.7 G/dL (31.0-37.0); MEAN CORPUSCULAR VOLUME 94 fL (80-100); MONOCYTES # (AUTO) 0.3 K/uL (0.1-1.0); MONOCYTES % (AUTO) 15.3 % (2.0-9.0); NEUTROPHILS % (AUTO) 52.9 % (40.0-70.0); PLATELET COUNT (AUTO) 66 K/uL (150-450); RED BLOOD CELL COUNT(AUTO) 4.17 MIL/uL (4.50-5.90); RED CELL DISTRIBUTION WIDTH 14.1 % (11.5-14.5)
[2018-09-11 07:32] LABS: ALANINE AMINOTRANSFERASE 213 U/L (12-78); ALBUMIN 3.4 g/dL (3.4-5.0); ALKALINE PHOSPHATASE 64 U/L (46-116); ANION GAP 8 mmol/L (8-16); ASPARTATE AMINOTRANSFERASE 181 U/L (15-37); BILIRUBIN,TOTAL 0.6 mg/dL (0.1-1.0); CARBON DIOXIDE 26 mmol/L (22-29); CHLORIDE 104 mmol/L (98-107); GLOMERULAR FILTR. RATE CALC > 60 mL/min (>60); GLUCOSE,RANDOM 99 mg/dL (70-110); POTASSIUM 3.7 mmol/L (3.5-5.1); SODIUM SERUM 138 mmol/L (136-145); TOTAL PROTEIN, SERUM 6.8 g/dL (6.4-8.2); UREA NITROGEN, BLOOD 7 mg/dL (7-18)
[2018-09-11 07:44] VITALS: BP 135/90
[2018-09-11] MEDS: FOLIC ACID 1 MG TABLET PO SCH (08:21)
[2018-09-11] MEDS: MULTIVITAMINS, THERAPEUTIC TABLET PO SCH (08:21)
[2018-09-11] MEDS: ACAMPROSATE CALCIUM 333 MG DR TABLET PO SCH ×3 (08:21→20:16)
[2018-09-11] MEDS: PANTOPRAZOLE SODIUM 40 MG/VIAL IVP SCH (08:21)
[2018-09-11] MEDS: LORazepam 2 MG TABLET PO SCH ×4 (08:21→20:17)
[2018-09-11] MEDS: GABAPENTIN 300 MG CAPSULE PO SCH (08:21)
[2018-09-11] MEDS: DOCUSATE SODIUM 100 MG CAPSULE PO SCH ×2 (08:21→20:17)
[2018-09-11] MEDS: HEPARIN SODIUM,PORCINE 5,000 UNITS/ML VIAL SQ SCH ×2 (08:22)
[2018-09-11] MEDS: THIAMINE HCL 100 MG/ML 2ML VIAL IVP SCH (08:22)
[2018-09-11 11:26] VITALS: BP 131/88
[2018-09-11 12:10] LABS: INR 0.9 (0.9-1.1); PROTHROMBIN TIME 9.7 SEC (9.4-11.6)
[2018-09-11] MEDS: OxyCODONE HCL/ACETAMINOPHEN 5-325 MG TABLET PO PRN ×2 (13:58→20:17)
[2018-09-11] MEDS: LORazepam 2 MG/ML VIAL IVP PRN (17:09)
[2018-09-11 19:35] VITALS: BP 126/98
[2018-09-11] MEDS: OLANZapine 10 MG TABLET PO SCH (20:17)
[2018-09-11 23:45] VITALS: BP 120/74
[2018-09-12 04:50] VITALS: BP 114/64
[2018-09-12 06:49] LABS: BASOPHILS % (AUTO) 0.7 % (0.0-2.0); EOSINOPHILS % (AUTO) 2.9 % (1.0-6.0); HEMATOCRIT 39.4 % (41-53); LYMPHOCYTES # (AUTO) 0.8 K/uL (1.0-4.8); LYMPHOCYTES % (AUTO) 30.3 % (22.0-44.0); MEAN CORPUSCULAR HEMOGLOBIN 33.7 pg (26.0-34.0); MEAN CORPUSCULAR HGB CONC 35.6 G/dL (31.0-37.0); MEAN CORPUSCULAR VOLUME 95 fL (80-100); MONOCYTES # (AUTO) 0.6 K/uL (0.1-1.0); MONOCYTES % (AUTO) 25.8 % (2.0-9.0); NEUTROPHILS % (AUTO) 40.3 % (40.0-70.0); PLATELET COUNT (AUTO) 75 K/uL (150-450); RED BLOOD CELL COUNT(AUTO) 4.16 MIL/uL (4.50-5.90); RED CELL DISTRIBUTION WIDTH 14.2 % (11.5-14.5)
[2018-09-12 06:56] LABS: ALANINE AMINOTRANSFERASE 175 U/L (12-78); ALBUMIN 3.4 g/dL (3.4-5.0); ALKALINE PHOSPHATASE 73 U/L (46-116); ANION GAP 7 mmol/L (8-16); ASPARTATE AMINOTRANSFERASE 104 U/L (15-37); BILIRUBIN,TOTAL 0.6 mg/dL (0.1-1.0); CALCIUM, TOTAL 8.9 mg/dL (8.8-10.5); CARBON DIOXIDE 28 mmol/L (22-29); CHLORIDE 104 mmol/L (98-107); CREATININE 0.87 mg/dL (0.60-1.30); GLOMERULAR FILTR. RATE CALC > 60 mL/min (>60); GLUCOSE,RANDOM 99 mg/dL (70-110); POTASSIUM 3.9 mmol/L (3.5-5.1); SODIUM SERUM 139 mmol/L (136-145); TOTAL PROTEIN, SERUM 6.8 g/dL (6.4-8.2); UREA NITROGEN, BLOOD 11 mg/dL (7-18)
[2018-09-12] MEDS ORDERED: LORazepam 1 MG TABLET PO PRN (07:00)
[2018-09-12] MEDS: FOLIC ACID 1 MG TABLET PO SCH (07:44)
[2018-09-12] MEDS: MULTIVITAMINS, THERAPEUTIC TABLET PO SCH (07:44)
[2018-09-12] MEDS: THIAMINE HCL 100 MG/ML 2ML VIAL IVP SCH (07:45)
[2018-09-12] MEDS: OxyCODONE HCL/ACETAMINOPHEN 5-325 MG TABLET PO PRN ×3 (07:45→17:20)
[2018-09-12] MEDS: PANTOPRAZOLE SODIUM 40 MG/VIAL IVP SCH (07:45)
[2018-09-12] MEDS: ACAMPROSATE CALCIUM 333 MG DR TABLET PO SCH ×3 (07:45→19:58)
[2018-09-12] MEDS: DOCUSATE SODIUM 100 MG CAPSULE PO SCH ×2 (08:00→19:58)
[2018-09-12] MEDS: LORazepam 1 MG TABLET PO SCH ×4 (08:02→19:58)
[2018-09-12 08:09] VITALS: BP 110/64
[2018-09-12] MEDS: LORazepam 2 MG/ML VIAL IVP PRN ×2 (09:12→13:59)
[2018-09-12 11:27] VITALS: BP 126/82
[2018-09-12 15:57] VITALS: BP 152/57
[2018-09-12] MEDS: OLANZapine 10 MG TABLET PO SCH (19:58)
[2018-09-12 21:00] VITALS: BP 146/83
[2018-09-12] MEDS: ZOLPIDEM TARTRATE 5 MG TABLET PO PRN (22:40)
[2018-09-12 23:26] VITALS: BP 136/75
[2018-09-13 05:40] VITALS: BP 153/74
[2018-09-13 06:32] LABS: EOSINOPHILS % (AUTO) 2.2 % (1.0-6.0); HEMATOCRIT 41.5 % (41-53); HEMOGLOBIN 14.8 g/dL (13.5-17.5); LYMPHOCYTES # (AUTO) 0.8 K/uL (1.0-4.8); LYMPHOCYTES % (AUTO) 31.6 % (22.0-44.0); MEAN CORPUSCULAR HEMOGLOBIN 33.9 pg (26.0-34.0); MEAN CORPUSCULAR HGB CONC 35.6 G/dL (31.0-37.0); MEAN CORPUSCULAR VOLUME 95 fL (80-100); MONOCYTES # (AUTO) 0.6 K/uL (0.1-1.0); MONOCYTES % (AUTO) 21.3 % (2.0-9.0); NEUTROPHILS # (AUTO) 1.2 K/uL (1.8-7.7); NEUTROPHILS % (AUTO) 43.9 % (40.0-70.0); PLATELET COUNT (AUTO) 93 K/uL (150-450); RED BLOOD CELL COUNT(AUTO) 4.36 MIL/uL (4.50-5.90); RED CELL DISTRIBUTION WIDTH 14.3 % (11.5-14.5)
[2018-09-13 07:01] LABS: ALANINE AMINOTRANSFERASE 157 U/L (12-78); ALBUMIN 3.6 g/dL (3.4-5.0); ALKALINE PHOSPHATASE 75 U/L (46-116); ANION GAP 6 mmol/L (8-16); ASPARTATE AMINOTRANSFERASE 76 U/L (15-37); BILIRUBIN,TOTAL 0.5 mg/dL (0.1-1.0); CALCIUM, TOTAL 9.2 mg/dL (8.8-10.5); CARBON DIOXIDE 29 mmol/L (22-29); CHLORIDE 104 mmol/L (98-107); CREATININE 0.98 mg/dL (0.60-1.30); GLOMERULAR FILTR. RATE CALC > 60 mL/min (>60); GLUCOSE,RANDOM 99 mg/dL (70-110); POTASSIUM 4.7 mmol/L (3.5-5.1); SODIUM SERUM 139 mmol/L (136-145); TOTAL PROTEIN, SERUM 7.2 g/dL (6.4-8.2); UREA NITROGEN, BLOOD 13 mg/dL (7-18)
[2018-09-13 07:45] VITALS: BP 128/85
[2018-09-13] MEDS: DOCUSATE SODIUM 100 MG CAPSULE PO SCH ×2 (09:00→20:15)
[2018-09-13] MEDS: PANTOPRAZOLE SODIUM 40 MG/VIAL IVP SCH (09:00)
[2018-09-13] MEDS: MULTIVITAMINS, THERAPEUTIC TABLET PO SCH (09:53)
[2018-09-13] MEDS: FOLIC ACID 1 MG TABLET PO SCH (09:53)
[2018-09-13] MEDS: ACAMPROSATE CALCIUM 333 MG DR TABLET PO SCH ×3 (09:53→20:15)
[2018-09-13] MEDS: THIAMINE HCL 100 MG/ML 2ML VIAL IVP SCH (09:54)
[2018-09-13] MEDS: LORazepam 1 MG TABLET PO PRN ×3 (10:02→21:58)
[2018-09-13] MEDS: OxyCODONE HCL/ACETAMINOPHEN 5-325 MG TABLET PO PRN ×3 (10:03→20:16)
[2018-09-13 11:23] VITALS: BP 110/69
[2018-09-13 15:30] VITALS: BP 137/81
[2018-09-13 19:10] VITALS: BP 139/86
[2018-09-13] MEDS: OLANZapine 10 MG TABLET PO SCH (20:15)
[2018-09-13 23:40] VITALS: BP 107/79
[2018-09-13] MEDS: ZOLPIDEM TARTRATE 5 MG TABLET PO PRN (23:50)
[2018-09-14 04:31] VITALS: BP 117/81
[2018-09-14 06:43] LABS: BASOPHILS % (AUTO) 1.4 % (0.0-2.0); EOSINOPHILS % (AUTO) 2.2 % (1.0-6.0); HEMATOCRIT 39.2 % (41-53); HEMOGLOBIN 13.5 g/dL (13.5-17.5); LYMPHOCYTES # (AUTO) 0.9 K/uL (1.0-4.8); LYMPHOCYTES % (AUTO) 33.1 % (22.0-44.0); MEAN CORPUSCULAR HEMOGLOBIN 32.4 pg (26.0-34.0); MEAN CORPUSCULAR HGB CONC 34.4 G/dL (31.0-37.0); MEAN CORPUSCULAR VOLUME 94 fL (80-100); MONOCYTES # (AUTO) 0.6 K/uL (0.1-1.0); MONOCYTES % (AUTO) 22.8 % (2.0-9.0); NEUTROPHILS # (AUTO) 1.1 K/uL (1.8-7.7); NEUTROPHILS % (AUTO) 40.5 % (40.0-70.0); PLATELET COUNT (AUTO) 102 K/uL (150-450); RED BLOOD CELL COUNT(AUTO) 4.16 MIL/uL (4.50-5.90); RED CELL DISTRIBUTION WIDTH 14.5 % (11.5-14.5)
[2018-09-14 06:55] LABS: ALANINE AMINOTRANSFERASE 133 U/L (12-78); ALBUMIN 3.3 g/dL (3.4-5.0); ALKALINE PHOSPHATASE 66 U/L (46-116); ANION GAP 8 mmol/L (8-16); ASPARTATE AMINOTRANSFERASE 62 U/L (15-37); BILIRUBIN,TOTAL 0.5 mg/dL (0.1-1.0); CALCIUM, TOTAL 8.7 mg/dL (8.8-10.5); CARBON DIOXIDE 26 mmol/L (22-29); CHLORIDE 105 mmol/L (98-107); CREATININE 0.84 mg/dL (0.60-1.30); GLOMERULAR FILTR. RATE CALC > 60 mL/min (>60); GLUCOSE,RANDOM 99 mg/dL (70-110); POTASSIUM 3.8 mmol/L (3.5-5.1); SODIUM SERUM 139 mmol/L (136-145); TOTAL PROTEIN, SERUM 6.5 g/dL (6.4-8.2); UREA NITROGEN, BLOOD 12 mg/dL (7-18)
[2018-09-14 07:45] VITALS: BP 114/75
[2018-09-14] MEDS: MULTIVITAMINS, THERAPEUTIC TABLET PO SCH (08:07)
[2018-09-14] MEDS: DOCUSATE SODIUM 100 MG CAPSULE PO SCH (08:08)
[2018-09-14] MEDS: THIAMINE HCL 100 MG/ML 2ML VIAL IVP SCH (08:08)
[2018-09-14] MEDS: PANTOPRAZOLE SODIUM 40 MG/VIAL IVP SCH (08:08)
[2018-09-14] MEDS: FOLIC ACID 1 MG TABLET PO SCH (08:08)
[2018-09-14] MEDS: ACAMPROSATE CALCIUM 333 MG DR TABLET PO SCH (08:08)
[2018-09-14] MEDS: OxyCODONE HCL/ACETAMINOPHEN 5-325 MG TABLET PO PRN (08:22)
[2018-09-14] MEDS: LORazepam 2 MG/ML VIAL IVP PRN (08:23)
[2018-09-14] MEDS ORDERED: ACAM333T7 PO (10:28)
[2018-09-14] MEDS ORDERED: DSS100 PO (10:29)
[2018-09-14] MEDS ORDERED: FOLI1 PO (10:29)
[2018-09-14] MEDS ORDERED: MULT-1239 PO (10:30)
[2018-09-14] MEDS ORDERED: PANT40TA25 PO (10:30)
[2018-09-14] MEDS ORDERED: THIA100T67 PO (10:31)
[2018-09-14] MEDS ORDERED: ACET-2902 PO (10:32)
[2018-09-14] MEDS ORDERED: BISA10S PR (10:33)
[2018-09-14] MEDS ORDERED: MOM30 PO (10:34)
[2018-09-14] MEDS ORDERED: AUD NEB (10:36)
[2018-09-14] MEDS ORDERED: IPRNEB IH (10:37)
== END 2018-09-14 11:20 | DRG 282 ==
LOC: EMS 13:03 → 5N 17:31 → 6N 09-11 13:25
PROVIDERS: ADMIT Hospitalist; ATTEND Hospitalist
DX: K85.90 Acute pancreatitis without necrosis or infection, unspecified (principal); D69.6 Thrombocytopenia, unspecified; R45.851 Suicidal ideations; F31.9 Bipolar disorder, unspecified; R44.0 Auditory hallucinations; E87.6 Hypokalemia; R00.0 Tachycardia, unspecified; R74.0 Nonspecific elevation of levels of transaminase and lactic acid dehydrogenase [LDH]; D72.819 Decreased white blood cell count, unspecified; E66.9 Obesity, unspecified; F10.239 Alcohol dependence with withdrawal, unspecified; Z68.31 Body mass index [BMI] 31.0-31.9, adult
CPT/HCPCS: 84132; 90686; 93005; 96361; 96374; 96375; C9113; G0378; G0480; J1644; J2060; J2270; J3411; J7030; J7050

== ENCOUNTER 2018-11-21 12:28 | Emergency (ER) | payer MEDICAID ==
[~2018-11-21] VITALS: Ht 175.3 cm; Wt 95.5 kg
[~2018-11-21 12:28] MED LIST changes: +CARB200T6 PO; +FOLI1 PO; +GABA-531 PO; +HALO10 PO; +LITH300C3 PO; +NALT50TA6 PO; -OLAN10TA3 PO; -OMEG-135 PO; -OMEP20 PO; +THIA100T67 PO; -TRAZ-219 PO; +VITAD1000 PO
[2018-11-21 12:54] LABS: BASOPHILS % (AUTO) 1.1 % (0.0-2.0); EOSINOPHILS % (AUTO) 0.9 % (1.0-6.0); HEMATOCRIT 42.8 % (41-53); HEMOGLOBIN 14.6 g/dL (13.5-17.5); LYMPHOCYTES # (AUTO) 1.6 K/uL (1.0-4.8); LYMPHOCYTES % (AUTO) 24.9 % (22.0-44.0); MEAN CORPUSCULAR HEMOGLOBIN 31.7 pg (26.0-34.0); MEAN CORPUSCULAR HGB CONC 34.2 G/dL (31.0-37.0); MEAN CORPUSCULAR VOLUME 93 fL (80-100); MONOCYTES # (AUTO) 0.5 K/uL (0.1-1.0); MONOCYTES % (AUTO) 8.2 % (2.0-9.0); NEUTROPHILS # (AUTO) 4.3 K/uL (1.8-7.7); NEUTROPHILS % (AUTO) 64.9 % (40.0-70.0); PLATELET COUNT (AUTO) 295 K/uL (150-450); RED BLOOD CELL COUNT(AUTO) 4.61 MIL/uL (4.50-5.90); RED CELL DISTRIBUTION WIDTH 13.3 % (11.5-14.5)
[2018-11-21 13:03] LABS: ANION GAP 12 mmol/L (8-16); CALCIUM, TOTAL 9.1 mg/dL (8.8-10.5); CARBON DIOXIDE 26 mmol/L (22-29); CHLORIDE 106 mmol/L (98-107); CREATININE 1.05 mg/dL (0.60-1.30); GLOMERULAR FILTR. RATE CALC > 60 mL/min (>60); GLUCOSE,RANDOM 96 mg/dL (70-110); POTASSIUM 3.9 mmol/L (3.5-5.1); SODIUM SERUM 144 mmol/L (136-145); UREA NITROGEN, BLOOD 11 mg/dL (7-18)
[2018-11-21 13:09] LABS: ALANINE AMINOTRANSFERASE 28 U/L (12-78); ALBUMIN 4.1 g/dL (3.4-5.0); ALKALINE PHOSPHATASE 98 U/L (46-116); ASPARTATE AMINOTRANSFERASE 21 U/L (15-37); BILIRUBIN,TOTAL 0.2 mg/dL (0.1-1.0); TOTAL PROTEIN, SERUM 7.7 g/dL (6.4-8.2)
[2018-11-21 13:35] LABS: AMPHET/METH SCREEN,URINE NEGATIVE (NEGATIVE); BARBITURATE SCREEN, URINE NEGATIVE (NEGATIVE); BENZODIAZEPINES SCREEN,URINE NEGATIVE (NEGATIVE); CANNABINOID SCREEN,URINE NEGATIVE (NEGATIVE); COCAINE SCREEN,URINE NEGATIVE (NEGATIVE); METHADONE SCREEN, URINE NEGATIVE (NEGATIVE); OPIATE SCREEN,URINE NEGATIVE (NEGATIVE); PHENCYCLIDINE SCREEN,URINE NEGATIVE (NEGATIVE)
[2018-11-21 13:55] LABS: LITHIUM 0.53 mmol/L (0.60-1.20)
[2018-11-21] MEDS ORDERED: IBUPROFEN 800 MG TABLET PO ONE (14:30)
[2018-11-21 14:50] VITALS: BP 141/84
== END 2018-11-21 15:29 | disposition home or self-care (01) ==
LOC: EMS 12:31
DX: F10.20 Alcohol dependence, uncomplicated (principal); F31.9 Bipolar disorder, unspecified; G89.29 Other chronic pain; M54.5 Low back pain; Y90.8 Blood alcohol level of 240 mg/100 ml or more
CPT/HCPCS: 36415; 80053; 80178; 80307; 85025; 99283; G0480

== ENCOUNTER 2018-11-21 15:53 | Inpatient (IN) | payer MEDICAID ==
[~2018-11-21] VITALS: Ht 175.3 cm; Wt 94.8 kg
[2018-11-21] MEDS ORDERED: GuaiFENesin/D-METHORPHAN [SUGAR-FREE] 200-20MG/10 ML SYRUP UDCUP PO PRN (17:45)
[2018-11-21] MEDS ORDERED: HALOPERIDOL 5 MG TABLET PO PRN (17:45)
[2018-11-21] MEDS ORDERED: HydrOXYzine PAMOATE 50 MG CAPSULE PO PRN (17:45)
[2018-11-21] MEDS ORDERED: CYANOCOBALAMIN 1,000 MCG/ML VIAL IM ONE (17:45)
[2018-11-21] MEDS ORDERED: LOPERAMIDE HCL 2 MG CAPSULE PO PRN (17:45)
[2018-11-21 19:41] VITALS: BP 131/91
[2018-11-21 20:15] VITALS: BP 131/91
[2018-11-21] MEDS: HALOPERIDOL 10 MG TABLET PO SCH (20:24)
[2018-11-21] MEDS: THIAMINE HCL 100 MG TABLET PO SCH (20:24)
[2018-11-21] MEDS: LORazepam 2 MG TABLET PO PRN (20:26)
[2018-11-21 20:41] VITALS: BP 123/82
[2018-11-21 21:41] VITALS: BP 111/72
[2018-11-21 23:41] VITALS: BP 119/77
[2018-11-22] VITALS (10 sets, daily range): BP systolic 119–136; BP diastolic 67–87
[2018-11-22] MEDS: LORazepam 2 MG TABLET PO PRN ×3 (03:55→16:15)
[2018-11-22] MEDS ORDERED: BENZOCAINE/MENTHOL LOZENGE MM PRN (07:00)
[2018-11-22] MEDS ORDERED: ALBUTEROL SULFATE HFA 90 MCG/PUFF 8 GM INHALER IH PRN (07:00)
[2018-11-22] MEDS ORDERED: CloNIDine HCL 0.1 MG TABLET PO PRN (07:00)
[2018-11-22] MEDS ORDERED: ACETAMINOPHEN 325 MG TABLET PO PRN (07:00)
[2018-11-22] MEDS ORDERED: ONDANSETRON HCL 4 MG TABLET PO PRN (07:00)
[2018-11-22] MEDS ORDERED: LORazepam 2 MG TABLET PO PRN (07:00)
[2018-11-22] MEDS ORDERED: BACITRACIN 28.4 GM OINTMENT TP PRN (07:00)
[2018-11-22] MEDS ORDERED: LOPERAMIDE HCL 2 MG CAPSULE PO PRN (07:00)
[2018-11-22] MEDS ORDERED: PETROLATUM,WHITE 28 GM JELLY TP PRN (07:00)
[2018-11-22] MEDS ORDERED: MAG HYDROX/AL HYDROX/SIMETH ES 30 ML SUSPENSION UDCUP PO PRN (07:00)
[2018-11-22] MEDS ORDERED: LORazepam 2 MG TABLET PO SCH (09:00)
[2018-11-22] MEDS: DOCUSATE SODIUM 100 MG CAPSULE PO SCH (09:00)
[2018-11-22] MEDS: IBUPROFEN 600 MG TABLET PO PRN (09:15)
[2018-11-22] MEDS: FOLIC ACID 1 MG TABLET PO SCH (09:15)
[2018-11-22] MEDS: GABAPENTIN 300 MG CAPSULE PO SCH ×4 (09:16→20:47)
[2018-11-22] MEDS: THIAMINE HCL 100 MG TABLET PO SCH ×2 (09:16→16:13)
[2018-11-22] MEDS: MULTIVITAMINS WITH MINERALS, THERAPEUTIC TABLET PO SCH (09:16)
[2018-11-22] MEDS: CHOLECALCIFEROL (VIT D3) 1,000 UNITS TABLET PO SCH (09:16)
[2018-11-22] MEDS: OMEPRAZOLE 20 MG CAPSULE PO SCH (09:18)
[2018-11-22] MEDS ORDERED: DIAZEPAM 10 MG TABLET PO PRN (10:15)
[2018-11-22] MEDS: ACAMPROSATE CALCIUM 333 MG DR TABLET PO SCH ×2 (12:00→16:13)
[2018-11-22] MEDS: TOPIRAMATE 25 MG TABLET PO SCH ×2 (12:00→16:14)
[2018-11-22] MEDS: HALOPERIDOL 10 MG TABLET PO SCH (20:47)
[2018-11-23] VITALS (8 sets, daily range): BP systolic 121–131; BP diastolic 73–97
[2018-11-23 06:23] LABS: BASOPHILS % (AUTO) 0.6 % (0.0-2.0); EOSINOPHILS % (AUTO) 3.3 % (1.0-6.0); HEMATOCRIT 37.3 % (41-53); HEMOGLOBIN 12.7 g/dL (13.5-17.5); LYMPHOCYTES # (AUTO) 1.1 K/uL (1.0-4.8); LYMPHOCYTES % (AUTO) 23.3 % (22.0-44.0); MEAN CORPUSCULAR HEMOGLOBIN 32.1 pg (26.0-34.0); MEAN CORPUSCULAR HGB CONC 34.1 G/dL (31.0-37.0); MEAN CORPUSCULAR VOLUME 94 fL (80-100); MONOCYTES # (AUTO) 0.4 K/uL (0.1-1.0); MONOCYTES % (AUTO) 9.1 % (2.0-9.0); NEUTROPHILS % (AUTO) 63.7 % (40.0-70.0); PLATELET COUNT (AUTO) 154 K/uL (150-450); RED BLOOD CELL COUNT(AUTO) 3.97 MIL/uL (4.50-5.90); RED CELL DISTRIBUTION WIDTH 13.1 % (11.5-14.5)
[2018-11-23 06:30] LABS: HEMOGLOBIN A1C 5.3 % (4.5-6.2)
[2018-11-23 06:52] LABS: ALANINE AMINOTRANSFERASE 21 U/L (12-78); ALBUMIN 3.2 g/dL (3.4-5.0); ALKALINE PHOSPHATASE 73 U/L (46-116); ANION GAP 8 mmol/L (8-16); ASPARTATE AMINOTRANSFERASE 16 U/L (15-37); BILIRUBIN,TOTAL 0.6 mg/dL (0.1-1.0); CALCIUM, TOTAL 8.5 mg/dL (8.8-10.5); CARBON DIOXIDE 25 mmol/L (22-29); CHLORIDE 109 mmol/L (98-107); CREATININE 0.98 mg/dL (0.60-1.30); FREE T4 (FREE THYROXINE) 0.64 ng/dL (0.76-1.46); GLOMERULAR FILTR. RATE CALC > 60 mL/min (>60); GLUCOSE,RANDOM 108 mg/dL (70-110); POTASSIUM 3.9 mmol/L (3.5-5.1); SODIUM SERUM 142 mmol/L (136-145); THYROID STIMULATING HORMONE 2.18 uIU/mL (0.36-3.74); TOTAL PROTEIN, SERUM 5.8 g/dL (6.4-8.2); UREA NITROGEN, BLOOD 9 mg/dL (7-18)
[2018-11-23] MEDS ORDERED: DIAZEPAM 10 MG TABLET PO PRN (07:00)
[2018-11-23] MEDS: CHOLECALCIFEROL (VIT D3) 1,000 UNITS TABLET PO SCH (09:10)
[2018-11-23] MEDS: OMEPRAZOLE 20 MG CAPSULE PO SCH (09:11)
[2018-11-23] MEDS: TOPIRAMATE 25 MG TABLET PO SCH ×3 (09:11→16:21)
[2018-11-23] MEDS: FOLIC ACID 1 MG TABLET PO SCH (09:11)
[2018-11-23] MEDS: THIAMINE HCL 100 MG TABLET PO SCH ×2 (09:11→16:21)
[2018-11-23] MEDS: DOCUSATE SODIUM 100 MG CAPSULE PO SCH (09:11)
[2018-11-23] MEDS: GABAPENTIN 300 MG CAPSULE PO SCH ×4 (09:11→20:09)
[2018-11-23] MEDS: MULTIVITAMINS WITH MINERALS, THERAPEUTIC TABLET PO SCH (09:11)
[2018-11-23] MEDS: DIAZEPAM 10 MG TABLET PO SCH ×4 (09:12→20:09)
[2018-11-23] MEDS: ACAMPROSATE CALCIUM 333 MG DR TABLET PO SCH ×3 (09:13→16:20)
[2018-11-23] MEDS: IBUPROFEN 600 MG TABLET PO PRN (12:34)
[2018-11-23] MEDS: HALOPERIDOL 10 MG TABLET PO SCH (20:09)
[2018-11-24 06:16] VITALS: BP 115/71
[2018-11-24] MEDS ORDERED: LORazepam 1 MG TABLET PO PRN (07:00)
[2018-11-24] MEDS ORDERED: LORazepam 1 MG TABLET PO SCH (09:00)
[2018-11-24] MEDS: CHOLECALCIFEROL (VIT D3) 1,000 UNITS TABLET PO SCH (09:08)
[2018-11-24] MEDS: GABAPENTIN 300 MG CAPSULE PO SCH ×4 (09:09→20:55)
[2018-11-24] MEDS: TOPIRAMATE 25 MG TABLET PO SCH ×3 (09:09→16:37)
[2018-11-24] MEDS: FOLIC ACID 1 MG TABLET PO SCH (09:09)
[2018-11-24] MEDS: MULTIVITAMINS WITH MINERALS, THERAPEUTIC TABLET PO SCH (09:09)
[2018-11-24] MEDS: THIAMINE HCL 100 MG TABLET PO SCH ×2 (09:09→16:37)
[2018-11-24] MEDS: DOCUSATE SODIUM 100 MG CAPSULE PO SCH (09:10)
[2018-11-24] MEDS: OMEPRAZOLE 20 MG CAPSULE PO SCH (09:10)
[2018-11-24] MEDS: DIAZEPAM 10 MG TABLET PO SCH ×4 (09:10→20:55)
[2018-11-24] MEDS: ACAMPROSATE CALCIUM 333 MG DR TABLET PO SCH ×3 (09:12→16:37)
[2018-11-24 10:14] VITALS: BP 119/80
[2018-11-24 19:19] VITALS: BP 128/95
[2018-11-24] MEDS: HALOPERIDOL 10 MG TABLET PO SCH (20:55)
[2018-11-25] VITALS (9 sets, daily range): BP systolic 108–125; BP diastolic 63–86
[2018-11-25] MEDS ORDERED: DIAZEPAM 5 MG TABLET PO PRN (07:00)
[2018-11-25] MEDS ORDERED: LORazepam 1 MG TABLET PO PRN (07:00)
[2018-11-25] MEDS: MULTIVITAMINS WITH MINERALS, THERAPEUTIC TABLET PO SCH (08:59)
[2018-11-25] MEDS: FOLIC ACID 1 MG TABLET PO SCH (08:59)
[2018-11-25] MEDS: TOPIRAMATE 25 MG TABLET PO SCH ×3 (08:59→16:11)
[2018-11-25] MEDS: CHOLECALCIFEROL (VIT D3) 1,000 UNITS TABLET PO SCH (08:59)
[2018-11-25] MEDS: THIAMINE HCL 100 MG TABLET PO SCH ×2 (08:59→16:12)
[2018-11-25] MEDS: GABAPENTIN 300 MG CAPSULE PO SCH ×4 (08:59→20:35)
[2018-11-25] MEDS: DOCUSATE SODIUM 100 MG CAPSULE PO SCH (08:59)
[2018-11-25] MEDS: OMEPRAZOLE 20 MG CAPSULE PO SCH (08:59)
[2018-11-25] MEDS: ACAMPROSATE CALCIUM 333 MG DR TABLET PO SCH ×3 (09:00→16:11)
[2018-11-25] MEDS: DIAZEPAM 5 MG TABLET PO SCH ×3 (09:01→16:12)
[2018-11-25] MEDS: IBUPROFEN 600 MG TABLET PO PRN ×2 (09:02→16:13)
[2018-11-25] MEDS ORDERED: QUEtiapine FUMARATE 100 MG TABLET PO PRN (18:45)
[2018-11-25] MEDS ORDERED: DiphenhydrAMINE HCL 50 MG/ML VIAL IM ONE (18:45)
[2018-11-25] MEDS ORDERED: LORazepam 2 MG/ML VIAL IM ONE (18:45)
[2018-11-25] MEDS ORDERED: LORazepam 2 MG TABLET PO PRN (18:45)
[2018-11-25] MEDS ORDERED: QUEtiapine FUMARATE 200 MG TABLET PO SCH (21:00)
[2018-11-26 02:45] VITALS: BP 102/62
[2018-11-26 06:45] VITALS: BP 112/64
[2018-11-26] MEDS ORDERED: LORazepam 2 MG TABLET PO PRN (07:00)
[2018-11-26] MEDS ORDERED: DIAZEPAM 5 MG TABLET PO PRN (07:00)
[2018-11-26 08:40] VITALS: BP 116/74
[2018-11-26] MEDS: CHOLECALCIFEROL (VIT D3) 1,000 UNITS TABLET PO SCH (08:47)
[2018-11-26] MEDS: MULTIVITAMINS WITH MINERALS, THERAPEUTIC TABLET PO SCH (08:47)
[2018-11-26] MEDS: TOPIRAMATE 25 MG TABLET PO SCH ×3 (08:47→17:06)
[2018-11-26] MEDS: THIAMINE HCL 100 MG TABLET PO SCH ×2 (08:47→17:07)
[2018-11-26] MEDS: DOCUSATE SODIUM 100 MG CAPSULE PO SCH (08:48)
[2018-11-26] MEDS: GABAPENTIN 300 MG CAPSULE PO SCH ×4 (08:48→21:08)
[2018-11-26] MEDS: QUEtiapine FUMARATE 25 MG TABLET PO SCH ×3 (08:48→17:07)
[2018-11-26] MEDS: ACAMPROSATE CALCIUM 333 MG DR TABLET PO SCH ×3 (08:48→17:06)
[2018-11-26] MEDS: LORazepam 2 MG TABLET PO SCH ×4 (08:48→21:07)
[2018-11-26] MEDS: FOLIC ACID 1 MG TABLET PO SCH (08:48)
[2018-11-26] MEDS: OMEPRAZOLE 20 MG CAPSULE PO SCH (08:48)
[2018-11-26 10:45] VITALS: BP 118/76
[2018-11-26 16:03] VITALS: BP 117/76
[2018-11-26 18:45] VITALS: BP 119/72
[2018-11-26] MEDS ORDERED: ChlorproMAZINE HCL 50 MG TABLET PO SCH (21:00)
[2018-11-27 02:45] VITALS: BP 111/64
[2018-11-27] MEDS ORDERED: ChlorproMAZINE HCL 10 MG TABLET PO SCH (09:00)
[2018-11-27] MEDS: OMEPRAZOLE 20 MG CAPSULE PO SCH (09:01)
[2018-11-27] MEDS: TOPIRAMATE 25 MG TABLET PO SCH ×3 (09:02→16:16)
[2018-11-27] MEDS: FOLIC ACID 1 MG TABLET PO SCH (09:02)
[2018-11-27] MEDS: MULTIVITAMINS WITH MINERALS, THERAPEUTIC TABLET PO SCH (09:02)
[2018-11-27] MEDS: LORazepam 2 MG TABLET PO SCH ×4 (09:02→20:44)
[2018-11-27] MEDS: ACAMPROSATE CALCIUM 333 MG DR TABLET PO SCH ×3 (09:02→16:15)
[2018-11-27] MEDS: GABAPENTIN 300 MG CAPSULE PO SCH ×4 (09:02→20:44)
[2018-11-27] MEDS: DOCUSATE SODIUM 100 MG CAPSULE PO SCH (09:02)
[2018-11-27] MEDS: CHOLECALCIFEROL (VIT D3) 1,000 UNITS TABLET PO SCH (09:02)
[2018-11-27] MEDS: THIAMINE HCL 100 MG TABLET PO SCH ×2 (09:02→16:16)
[2018-11-27 09:53] VITALS: BP 120/80
[2018-11-27 09:59] VITALS: BP 120/80
[2018-11-27] MEDS: ChlorproMAZINE HCL 25 MG TABLET PO SCH ×2 (13:18→16:15)
[2018-11-27 16:08] VITALS: BP 137/91
[2018-11-27 16:12] VITALS: BP 137/91
[2018-11-27] MEDS ORDERED: ChlorproMAZINE HCL 50 MG TABLET PO SCH (21:00)
[2018-11-28] MEDS ORDERED: LORazepam 1 MG TABLET PO PRN (07:00)
[2018-11-28] MEDS: LORazepam 1 MG TABLET PO SCH ×4 (08:11→21:03)
[2018-11-28] MEDS: TOPIRAMATE 25 MG TABLET PO SCH ×3 (08:11→16:02)
[2018-11-28] MEDS: FOLIC ACID 1 MG TABLET PO SCH (08:11)
[2018-11-28] MEDS: ACAMPROSATE CALCIUM 333 MG DR TABLET PO SCH ×3 (08:11→16:01)
[2018-11-28] MEDS: OMEPRAZOLE 20 MG CAPSULE PO SCH (08:11)
[2018-11-28] MEDS: DOCUSATE SODIUM 100 MG CAPSULE PO SCH (08:11)
[2018-11-28] MEDS: MULTIVITAMINS WITH MINERALS, THERAPEUTIC TABLET PO SCH (08:11)
[2018-11-28] MEDS: CHOLECALCIFEROL (VIT D3) 1,000 UNITS TABLET PO SCH (08:11)
[2018-11-28] MEDS: ChlorproMAZINE HCL 25 MG TABLET PO SCH ×3 (08:11→16:02)
[2018-11-28] MEDS: THIAMINE HCL 100 MG TABLET PO SCH ×2 (08:11→16:02)
[2018-11-28] MEDS: GABAPENTIN 300 MG CAPSULE PO SCH ×3 (08:11→16:02)
[2018-11-28 08:18] VITALS: BP 122/77
[2018-11-28 10:51] VITALS: BP 116/79
[2018-11-28] MEDS: IBUPROFEN 600 MG TABLET PO PRN (10:56)
[2018-11-28 10:58] VITALS: BP 116/79
[2018-11-28 17:00] VITALS: BP 124/85
[2018-11-28] MEDS: MAGNESIUM HYDROXIDE SUSPENSION 30 ML UDCUP PO PRN (17:45)
[2018-11-28] MEDS ORDERED: ChlorproMAZINE HCL 25 MG TABLET PO SCH (21:00)
[2018-11-28] MEDS: ChlorproMAZINE HCL 100 MG TABLET PO SCH (21:03)
[2018-11-28] MEDS: GABAPENTIN 400 MG CAPSULE PO SCH (21:03)
[2018-11-29 06:40] VITALS: BP 121/71
[2018-11-29 08:45] VITALS: BP 124/91
[2018-11-29] MEDS: IBUPROFEN 600 MG TABLET PO PRN (08:46)
[2018-11-29] MEDS: LORazepam 1 MG TABLET PO PRN ×4 (08:47→23:59)
[2018-11-29] MEDS: ACAMPROSATE CALCIUM 333 MG DR TABLET PO SCH ×3 (08:47→16:12)
[2018-11-29] MEDS: DOCUSATE SODIUM 100 MG CAPSULE PO SCH (08:47)
[2018-11-29] MEDS: FOLIC ACID 1 MG TABLET PO SCH (08:47)
[2018-11-29] MEDS: GABAPENTIN 400 MG CAPSULE PO SCH ×2 (08:47→12:36)
[2018-11-29] MEDS: CHOLECALCIFEROL (VIT D3) 1,000 UNITS TABLET PO SCH (08:48)
[2018-11-29] MEDS: TOPIRAMATE 25 MG TABLET PO SCH ×3 (08:48→16:15)
[2018-11-29] MEDS: THIAMINE HCL 100 MG TABLET PO SCH ×2 (08:49→16:14)
[2018-11-29] MEDS: MULTIVITAMINS WITH MINERALS, THERAPEUTIC TABLET PO SCH (08:49)
[2018-11-29] MEDS: ChlorproMAZINE HCL 50 MG TABLET PO SCH ×3 (08:49→16:15)
[2018-11-29] MEDS: OMEPRAZOLE 20 MG CAPSULE PO SCH (09:59)
[2018-11-29] MEDS: MAGNESIUM HYDROXIDE SUSPENSION 30 ML UDCUP PO PRN (09:59)
[2018-11-29] MEDS: GABAPENTIN 300 MG CAPSULE PO SCH (16:15)
[2018-11-29 17:06] VITALS: BP 120/80
[2018-11-29 18:12] VITALS: BP 120/80
[2018-11-29] MEDS: ChlorproMAZINE HCL 100 MG TABLET PO SCH (20:25)
[2018-11-30] VITALS: BP 105/68
[2018-11-30 00:33] VITALS: BP 105/68
[2018-11-30 06:15] VITALS: BP 94/68
[2018-11-30] MEDS: LORazepam 1 MG TABLET PO PRN (06:21)
[2018-11-30 08:00] VITALS: BP 135/80
[2018-11-30] MEDS: ACAMPROSATE CALCIUM 333 MG DR TABLET PO SCH ×3 (08:42→16:35)
[2018-11-30] MEDS: FOLIC ACID 1 MG TABLET PO SCH (08:42)
[2018-11-30] MEDS: DOCUSATE SODIUM 100 MG CAPSULE PO SCH (08:42)
[2018-11-30] MEDS: THIAMINE HCL 100 MG TABLET PO SCH ×2 (08:43→16:34)
[2018-11-30] MEDS: OMEPRAZOLE 20 MG CAPSULE PO SCH (08:43)
[2018-11-30] MEDS: ChlorproMAZINE HCL 50 MG TABLET PO SCH ×3 (08:43→16:35)
[2018-11-30] MEDS: CHOLECALCIFEROL (VIT D3) 1,000 UNITS TABLET PO SCH (08:43)
[2018-11-30] MEDS: MULTIVITAMINS WITH MINERALS, THERAPEUTIC TABLET PO SCH (08:43)
[2018-11-30] MEDS: TOPIRAMATE 25 MG TABLET PO SCH ×3 (08:43→16:35)
[2018-11-30] MEDS: GABAPENTIN 300 MG CAPSULE PO SCH ×3 (08:43→17:48)
[2018-11-30] MEDS: GABAPENTIN 300 MG CAPSULE PO PRN (15:06)
[2018-11-30 16:33] VITALS: BP 123/75
[2018-11-30] MEDS: ChlorproMAZINE HCL 100 MG TABLET PO SCH (20:20)
[2018-12-01] MEDS: ChlorproMAZINE HCL 50 MG TABLET PO PRN (00:05)
[2018-12-01 00:45] VITALS: BP 91/62
[2018-12-01] MEDS: DOCUSATE SODIUM 100 MG CAPSULE PO SCH (08:42)
[2018-12-01] MEDS: ACAMPROSATE CALCIUM 333 MG DR TABLET PO SCH ×3 (08:42→16:07)
[2018-12-01] MEDS: FOLIC ACID 1 MG TABLET PO SCH (08:42)
[2018-12-01] MEDS: OMEPRAZOLE 20 MG CAPSULE PO SCH (08:43)
[2018-12-01] MEDS: MULTIVITAMINS WITH MINERALS, THERAPEUTIC TABLET PO SCH (08:43)
[2018-12-01] MEDS: ChlorproMAZINE HCL 50 MG TABLET PO SCH ×3 (08:43→16:07)
[2018-12-01] MEDS: TOPIRAMATE 25 MG TABLET PO SCH ×3 (08:43→16:07)
[2018-12-01] MEDS: CHOLECALCIFEROL (VIT D3) 1,000 UNITS TABLET PO SCH (08:43)
[2018-12-01] MEDS: GABAPENTIN 300 MG CAPSULE PO SCH ×3 (08:44→16:07)
[2018-12-01 08:48] VITALS: BP 96/62
[2018-12-01] MEDS: IBUPROFEN 600 MG TABLET PO PRN (08:48)
[2018-12-01] MEDS: GABAPENTIN 300 MG CAPSULE PO PRN ×2 (10:56→18:55)
[2018-12-01 13:10] VITALS: BP 111/74
[2018-12-01 16:42] VITALS: BP 119/76
[2018-12-01] MEDS: ChlorproMAZINE HCL 100 MG TABLET PO SCH (20:51)
[2018-12-02 04:00] VITALS: BP 113/68
[2018-12-02] MEDS: GABAPENTIN 300 MG CAPSULE PO PRN ×3 (04:13→19:00)
[2018-12-02] MEDS: OMEPRAZOLE 20 MG CAPSULE PO SCH (08:25)
[2018-12-02] MEDS: TOPIRAMATE 25 MG TABLET PO SCH ×3 (08:25→16:39)
[2018-12-02] MEDS: CHOLECALCIFEROL (VIT D3) 1,000 UNITS TABLET PO SCH (08:25)
[2018-12-02] MEDS: DOCUSATE SODIUM 100 MG CAPSULE PO SCH (08:25)
[2018-12-02] MEDS: GABAPENTIN 300 MG CAPSULE PO SCH ×3 (08:25→16:38)
[2018-12-02] MEDS: ACAMPROSATE CALCIUM 333 MG DR TABLET PO SCH ×3 (08:26→16:38)
[2018-12-02] MEDS: MULTIVITAMINS WITH MINERALS, THERAPEUTIC TABLET PO SCH (08:26)
[2018-12-02] MEDS: ChlorproMAZINE HCL 50 MG TABLET PO SCH ×3 (08:28→16:39)
[2018-12-02 08:30] VITALS: BP 104/75
[2018-12-02 18:24] VITALS: BP 124/83
[2018-12-02] MEDS: ChlorproMAZINE HCL 100 MG TABLET PO SCH (20:24)
[2018-12-03] MEDS: ZOLPIDEM TARTRATE 10 MG TABLET PO PRN (00:51)
[2018-12-03] MEDS: ACAMPROSATE CALCIUM 333 MG DR TABLET PO SCH ×3 (08:02→16:34)
[2018-12-03] MEDS: GABAPENTIN 400 MG CAPSULE PO SCH ×3 (08:02→16:34)
[2018-12-03] MEDS: DOCUSATE SODIUM 100 MG CAPSULE PO SCH (08:03)
[2018-12-03] MEDS: MULTIVITAMINS WITH MINERALS, THERAPEUTIC TABLET PO SCH (08:03)
[2018-12-03] MEDS: ChlorproMAZINE HCL 50 MG TABLET PO SCH ×3 (08:03→16:33)
[2018-12-03] MEDS: OMEPRAZOLE 20 MG CAPSULE PO SCH (08:03)
[2018-12-03] MEDS: TOPIRAMATE 25 MG TABLET PO SCH ×3 (08:03→16:35)
[2018-12-03] MEDS: PARoxetine HCL 20 MG TABLET PO SCH (08:03)
[2018-12-03] MEDS: CHOLECALCIFEROL (VIT D3) 1,000 UNITS TABLET PO SCH (08:04)
[2018-12-03 08:44] VITALS: BP 104/62
[2018-12-03] MEDS: GABAPENTIN 300 MG CAPSULE PO PRN (14:20)
[2018-12-03 16:22] VITALS: BP 116/76
[2018-12-03] MEDS: ChlorproMAZINE HCL 100 MG TABLET PO SCH (21:05)
[2018-12-04 06:13] LABS: HEMATOCRIT 38.8 % (41-53); HEMOGLOBIN 13.1 g/dL (13.5-17.5); MEAN CORPUSCULAR HEMOGLOBIN 31.6 pg (26.0-34.0); MEAN CORPUSCULAR HGB CONC 33.9 G/dL (31.0-37.0); MEAN CORPUSCULAR VOLUME 93 fL (80-100); PLATELET COUNT (AUTO) 190 K/uL (150-450); RED BLOOD CELL COUNT(AUTO) 4.16 MIL/uL (4.50-5.90)
[2018-12-04 06:23] LABS: ANION GAP 8 mmol/L (8-16); CARBON DIOXIDE 24 mmol/L (22-29); CHLORIDE 106 mmol/L (98-107); CREATININE 1.05 mg/dL (0.60-1.30); GLOMERULAR FILTR. RATE CALC > 60 mL/min (>60); GLUCOSE,RANDOM 101 mg/dL (70-110); PHOSPHORUS 4.3 mg/dL (2.5-4.9); POTASSIUM 4.3 mmol/L (3.5-5.1); SODIUM SERUM 138 mmol/L (136-145); UREA NITROGEN, BLOOD 11 mg/dL (7-18)
[2018-12-04 07:43] LABS: BAND NEUTROPHILS % (MANUAL) 1 % (0-5); EOSINOPHILS % (MANUAL) 1 % (1-6); LYMPHOCYTES % (MANUAL) 30 % (22-44); MONOCYTES % (MANUAL) 6 % (2-9); SEGMENTED NEUTROPHILS % 62 % (40-70)
[2018-12-04 08:17] VITALS: BP 100/71
[2018-12-04] MEDS: OMEPRAZOLE 20 MG CAPSULE PO SCH (08:30)
[2018-12-04] MEDS: MULTIVITAMINS WITH MINERALS, THERAPEUTIC TABLET PO SCH (08:30)
[2018-12-04] MEDS: GABAPENTIN 400 MG CAPSULE PO SCH ×3 (08:30→17:21)
[2018-12-04] MEDS: DOCUSATE SODIUM 100 MG CAPSULE PO SCH (08:30)
[2018-12-04] MEDS: ChlorproMAZINE HCL 50 MG TABLET PO SCH ×3 (08:30→17:21)
[2018-12-04] MEDS: PARoxetine HCL 20 MG TABLET PO SCH (08:30)
[2018-12-04] MEDS: TOPIRAMATE 25 MG TABLET PO SCH ×3 (08:30→17:21)
[2018-12-04] MEDS: ACAMPROSATE CALCIUM 333 MG DR TABLET PO SCH ×3 (08:30→17:21)
[2018-12-04] MEDS: CHOLECALCIFEROL (VIT D3) 1,000 UNITS TABLET PO SCH (08:31)
[2018-12-04] MEDS: MAGNESIUM HYDROXIDE SUSPENSION 30 ML UDCUP PO PRN (08:36)
[2018-12-04 16:00] VITALS: BP 112/66
[2018-12-04] MEDS: ChlorproMAZINE HCL 100 MG TABLET PO SCH (20:29)
[2018-12-04] MEDS: LITHIUM CARBONATE 300 MG CAPSULE PO SCH (21:02)
[2018-12-05] MEDS: ZOLPIDEM TARTRATE 10 MG TABLET PO PRN (00:50)
[2018-12-05 00:53] VITALS: BP 112/68
[2018-12-05] MEDS: PARoxetine HCL 20 MG TABLET PO SCH (08:50)
[2018-12-05] MEDS: TOPIRAMATE 25 MG TABLET PO SCH ×3 (08:50→16:30)
[2018-12-05] MEDS: CHOLECALCIFEROL (VIT D3) 1,000 UNITS TABLET PO SCH (08:50)
[2018-12-05] MEDS: ACAMPROSATE CALCIUM 333 MG DR TABLET PO SCH ×3 (08:50→16:29)
[2018-12-05] MEDS: OMEPRAZOLE 20 MG CAPSULE PO SCH (08:50)
[2018-12-05] MEDS: MULTIVITAMINS WITH MINERALS, THERAPEUTIC TABLET PO SCH (08:50)
[2018-12-05] MEDS: ChlorproMAZINE HCL 50 MG TABLET PO SCH ×3 (08:50→16:29)
[2018-12-05] MEDS: LITHIUM CARBONATE 300 MG CAPSULE PO SCH ×2 (08:51→20:29)
[2018-12-05] MEDS: GABAPENTIN 400 MG CAPSULE PO SCH ×3 (08:51→16:30)
[2018-12-05] MEDS: DOCUSATE SODIUM 100 MG CAPSULE PO SCH (08:51)
[2018-12-05 10:00] VITALS: BP 110/80
[2018-12-05] MEDS: GABAPENTIN 300 MG CAPSULE PO PRN (10:51)
[2018-12-05 18:11] VITALS: BP 107/66
[2018-12-05] MEDS: ChlorproMAZINE HCL 100 MG TABLET PO SCH (20:29)
[2018-12-06] MEDS: ZOLPIDEM TARTRATE 10 MG TABLET PO PRN (01:06)
[2018-12-06] MEDS: GABAPENTIN 300 MG CAPSULE PO PRN ×2 (01:09→10:47)
[2018-12-06] MEDS: CHOLECALCIFEROL (VIT D3) 1,000 UNITS TABLET PO SCH (08:25)
[2018-12-06] MEDS: MULTIVITAMINS WITH MINERALS, THERAPEUTIC TABLET PO SCH (08:25)
[2018-12-06] MEDS: GABAPENTIN 400 MG CAPSULE PO SCH ×3 (08:25→17:01)
[2018-12-06] MEDS: TOPIRAMATE 25 MG TABLET PO SCH ×3 (08:25→17:01)
[2018-12-06] MEDS: LITHIUM CARBONATE 300 MG CAPSULE PO SCH (08:25)
[2018-12-06] MEDS: ChlorproMAZINE HCL 50 MG TABLET PO SCH ×3 (08:26→17:01)
[2018-12-06] MEDS: OMEPRAZOLE 20 MG CAPSULE PO SCH (08:26)
[2018-12-06] MEDS: ACAMPROSATE CALCIUM 333 MG DR TABLET PO SCH ×3 (08:26→17:01)
[2018-12-06] MEDS: DOCUSATE SODIUM 100 MG CAPSULE PO SCH (08:26)
[2018-12-06] MEDS: PARoxetine HCL 20 MG TABLET PO SCH (08:26)
[2018-12-06 09:15] VITALS: BP 116/77
[2018-12-06 16:00] VITALS: BP 118/65
[2018-12-06] MEDS: ChlorproMAZINE HCL 100 MG TABLET PO SCH (20:22)
[2018-12-06] MEDS: LITHIUM CARBONATE 600 MG CAPSULE PO SCH (20:22)
[2018-12-07 02:10] VITALS: BP 114/64
[2018-12-07] MEDS: ZOLPIDEM TARTRATE 10 MG TABLET PO PRN (02:17)
[2018-12-07] MEDS: ChlorproMAZINE HCL 50 MG TABLET PO PRN (02:17)
[2018-12-07] MEDS: GABAPENTIN 300 MG CAPSULE PO PRN (02:18)
[2018-12-07 08:30] VITALS: BP 103/55
[2018-12-07] MEDS: ACAMPROSATE CALCIUM 333 MG DR TABLET PO SCH ×3 (09:00→16:07)
[2018-12-07] MEDS: PARoxetine HCL 20 MG TABLET PO SCH (09:00)
[2018-12-07] MEDS: OMEPRAZOLE 20 MG CAPSULE PO SCH (09:00)
[2018-12-07] MEDS: LITHIUM CARBONATE 300 MG CAPSULE PO SCH (09:00)
[2018-12-07] MEDS: GABAPENTIN 400 MG CAPSULE PO SCH ×3 (09:00→16:07)
[2018-12-07] MEDS: CHOLECALCIFEROL (VIT D3) 1,000 UNITS TABLET PO SCH (09:00)
[2018-12-07] MEDS: ChlorproMAZINE HCL 50 MG TABLET PO SCH ×3 (09:00→16:07)
[2018-12-07] MEDS: TOPIRAMATE 25 MG TABLET PO SCH ×3 (09:00→16:07)
[2018-12-07] MEDS: MULTIVITAMINS WITH MINERALS, THERAPEUTIC TABLET PO SCH (09:00)
[2018-12-07] MEDS: DOCUSATE SODIUM 100 MG CAPSULE PO SCH (09:00)
[2018-12-07] MEDS ORDERED: GABA-533 PO (12:03)
[2018-12-07] MEDS ORDERED: PARO20TA24 PO (12:03)
[2018-12-07] MEDS ORDERED: CHLO100T24 PO (12:03)
[2018-12-07] MEDS ORDERED: TOPI25 PO (12:03)
[2018-12-07] MEDS ORDERED: ZOLP5 PO (12:03)
[2018-12-07] MEDS ORDERED: CHLO50 PO (12:03)
[2018-12-07 17:08] VITALS: BP 113/66
[2018-12-07] MEDS: ChlorproMAZINE HCL 25 MG TABLET PO SCH (21:46)
[2018-12-07] MEDS: LITHIUM CARBONATE 600 MG CAPSULE PO SCH (21:46)
[2018-12-08] MEDS: ZOLPIDEM TARTRATE 10 MG TABLET PO PRN (01:02)
[2018-12-08 08:30] VITALS: BP 105/63
[2018-12-08] MEDS: ChlorproMAZINE HCL 50 MG TABLET PO SCH ×3 (08:39→17:13)
[2018-12-08] MEDS: PARoxetine HCL 20 MG TABLET PO SCH (08:39)
[2018-12-08] MEDS: CHOLECALCIFEROL (VIT D3) 1,000 UNITS TABLET PO SCH (08:39)
[2018-12-08] MEDS: LITHIUM CARBONATE 300 MG CAPSULE PO SCH (08:39)
[2018-12-08] MEDS: ACAMPROSATE CALCIUM 333 MG DR TABLET PO SCH ×3 (08:39→17:13)
[2018-12-08] MEDS: DOCUSATE SODIUM 100 MG CAPSULE PO SCH (08:39)
[2018-12-08] MEDS: GABAPENTIN 400 MG CAPSULE PO SCH ×3 (08:39→17:13)
[2018-12-08] MEDS: OMEPRAZOLE 20 MG CAPSULE PO SCH (08:39)
[2018-12-08] MEDS: MULTIVITAMINS WITH MINERALS, THERAPEUTIC TABLET PO SCH (08:40)
[2018-12-08 16:00] VITALS: BP 102/64
[2018-12-08] MEDS: LITHIUM CARBONATE 600 MG CAPSULE PO SCH (20:26)
[2018-12-08] MEDS: ChlorproMAZINE HCL 25 MG TABLET PO SCH (20:26)
[2018-12-09 07:12] VITALS: BP 103/68
[2018-12-09] MEDS: ACAMPROSATE CALCIUM 333 MG DR TABLET PO SCH ×3 (08:07→17:07)
[2018-12-09] MEDS: OMEPRAZOLE 20 MG CAPSULE PO SCH (08:07)
[2018-12-09] MEDS: LITHIUM CARBONATE 300 MG CAPSULE PO SCH (08:07)
[2018-12-09] MEDS: CHOLECALCIFEROL (VIT D3) 1,000 UNITS TABLET PO SCH (08:07)
[2018-12-09] MEDS: FluPHENAZine HCL 5 MG TABLET PO SCH ×2 (08:07→20:18)
[2018-12-09] MEDS: PARoxetine HCL 20 MG TABLET PO SCH (08:07)
[2018-12-09] MEDS: DOCUSATE SODIUM 100 MG CAPSULE PO SCH (08:07)
[2018-12-09] MEDS: MULTIVITAMINS WITH MINERALS, THERAPEUTIC TABLET PO SCH (08:07)
[2018-12-09] MEDS: GABAPENTIN 400 MG CAPSULE PO SCH ×3 (08:10→17:07)
[2018-12-09 08:35] VITALS: BP 104/63
[2018-12-09 16:00] VITALS: BP 103/65
[2018-12-09] MEDS: LITHIUM CARBONATE 600 MG CAPSULE PO SCH (20:18)
[2018-12-09] MEDS ORDERED: DiphenhydrAMINE HCL 50 MG CAPSULE PO SCH (21:00)
[2018-12-10] MEDS: ChlorproMAZINE HCL 50 MG TABLET PO PRN (03:09)
[2018-12-10] MEDS: GABAPENTIN 300 MG CAPSULE PO PRN (03:09)
[2018-12-10 07:20] VITALS: BP 112/68
[2018-12-10] MEDS: ACAMPROSATE CALCIUM 333 MG DR TABLET PO SCH ×3 (08:04→16:41)
[2018-12-10] MEDS: PARoxetine HCL 20 MG TABLET PO SCH (08:04)
[2018-12-10] MEDS: DOCUSATE SODIUM 100 MG CAPSULE PO SCH (08:04)
[2018-12-10] MEDS: MULTIVITAMINS WITH MINERALS, THERAPEUTIC TABLET PO SCH (08:04)
[2018-12-10] MEDS: LITHIUM CARBONATE 300 MG CAPSULE PO SCH (08:04)
[2018-12-10] MEDS: CHOLECALCIFEROL (VIT D3) 1,000 UNITS TABLET PO SCH (08:04)
[2018-12-10] MEDS: FluPHENAZine HCL 5 MG TABLET PO SCH (08:04)
[2018-12-10] MEDS: GABAPENTIN 400 MG CAPSULE PO SCH ×3 (08:05→16:41)
[2018-12-10] MEDS: OMEPRAZOLE 20 MG CAPSULE PO SCH (08:05)
[2018-12-10 09:14] VITALS: BP 120/76
[2018-12-10] MEDS ORDERED: GABA-533 PO (13:41)
[2018-12-10] MEDS ORDERED: ACAM333T7 PO (13:41)
[2018-12-10] MEDS ORDERED: LITH600 PO (13:41)
[2018-12-10] MEDS ORDERED: PARO-37 PO (13:41)
[2018-12-10] MEDS ORDERED: DIPH50 PO (13:41)
[2018-12-10] MEDS ORDERED: FLUP5 PO (13:41)
[2018-12-10] MEDS ORDERED: LITH300C3 PO (13:41)
[2018-12-10 17:10] VITALS: BP 103/69
[2018-12-10] MEDS: LITHIUM CARBONATE 600 MG CAPSULE PO SCH (20:28)
[2018-12-10] MEDS: DiphenhydrAMINE HCL 50 MG CAPSULE PO SCH (20:28)
[2018-12-11 02:50] VITALS: BP 103/70
[2018-12-11] MEDS: ZOLPIDEM TARTRATE 10 MG TABLET PO PRN (02:52)
[2018-12-11 08:07] VITALS: BP 94/54
[2018-12-11 08:45] VITALS: BP 106/66
[2018-12-11] MEDS: PARoxetine HCL 20 MG TABLET PO SCH (08:48)
[2018-12-11] MEDS: GABAPENTIN 400 MG CAPSULE PO SCH ×3 (08:48→16:51)
[2018-12-11] MEDS: DOCUSATE SODIUM 100 MG CAPSULE PO SCH (08:49)
[2018-12-11] MEDS: LITHIUM CARBONATE 300 MG CAPSULE PO SCH (08:49)
[2018-12-11] MEDS: CHOLECALCIFEROL (VIT D3) 1,000 UNITS TABLET PO SCH (08:49)
[2018-12-11] MEDS: ACAMPROSATE CALCIUM 333 MG DR TABLET PO SCH ×3 (08:49→16:51)
[2018-12-11] MEDS: FluPHENAZine HCL 5 MG TABLET PO SCH ×3 (08:49→16:51)
[2018-12-11] MEDS: MULTIVITAMINS WITH MINERALS, THERAPEUTIC TABLET PO SCH (08:49)
[2018-12-11] MEDS: OMEPRAZOLE 20 MG CAPSULE PO SCH (08:49)
[2018-12-11] MEDS: DiphenhydrAMINE HCL 50 MG CAPSULE PO SCH (20:39)
[2018-12-11] MEDS: LITHIUM CARBONATE 600 MG CAPSULE PO SCH (20:39)
[2018-12-12 04:05] VITALS: BP 131/70
[2018-12-12] MEDS: ChlorproMAZINE HCL 50 MG TABLET PO PRN (04:07)
[2018-12-12 08:27] VITALS: BP 91/55
[2018-12-12] MEDS: ACAMPROSATE CALCIUM 333 MG DR TABLET PO SCH ×3 (08:59→18:07)
[2018-12-12] MEDS: FluPHENAZine HCL 5 MG TABLET PO SCH ×3 (08:59→18:08)
[2018-12-12] MEDS: PARoxetine HCL 20 MG TABLET PO SCH (08:59)
[2018-12-12] MEDS: MULTIVITAMINS WITH MINERALS, THERAPEUTIC TABLET PO SCH (09:00)
[2018-12-12] MEDS: DOCUSATE SODIUM 100 MG CAPSULE PO SCH (09:00)
[2018-12-12] MEDS: LITHIUM CARBONATE 300 MG CAPSULE PO SCH (09:00)
[2018-12-12] MEDS: OMEPRAZOLE 20 MG CAPSULE PO SCH (09:00)
[2018-12-12] MEDS: CHOLECALCIFEROL (VIT D3) 1,000 UNITS TABLET PO SCH (09:00)
[2018-12-12] MEDS: GABAPENTIN 400 MG CAPSULE PO SCH ×3 (09:00→18:08)
[2018-12-12 09:55] VITALS: BP 123/69
[2018-12-12 16:23] VITALS: BP 109/70
[2018-12-12] MEDS: DiphenhydrAMINE HCL 50 MG CAPSULE PO SCH (20:11)
[2018-12-12] MEDS: LITHIUM CARBONATE 600 MG CAPSULE PO SCH (20:11)
[2018-12-13 06:22] VITALS: BP 107/69
[2018-12-13 08:16] VITALS: BP 102/66
[2018-12-13] MEDS: DOCUSATE SODIUM 100 MG CAPSULE PO SCH (08:58)
[2018-12-13] MEDS: ACAMPROSATE CALCIUM 333 MG DR TABLET PO SCH ×3 (08:58→16:46)
[2018-12-13] MEDS: LITHIUM CARBONATE 300 MG CAPSULE PO SCH (08:59)
[2018-12-13] MEDS: CHOLECALCIFEROL (VIT D3) 1,000 UNITS TABLET PO SCH (08:59)
[2018-12-13] MEDS: PARoxetine HCL 20 MG TABLET PO SCH (08:59)
[2018-12-13] MEDS: FluPHENAZine HCL 5 MG TABLET PO SCH ×3 (08:59→16:47)
[2018-12-13] MEDS: OMEPRAZOLE 20 MG CAPSULE PO SCH (08:59)
[2018-12-13] MEDS: GABAPENTIN 400 MG CAPSULE PO SCH ×3 (08:59→16:46)
[2018-12-13] MEDS: MULTIVITAMINS WITH MINERALS, THERAPEUTIC TABLET PO SCH (08:59)
[2018-12-13] MEDS: GABAPENTIN 100 MG CAPSULE PO SCH (16:47)
[2018-12-13 16:49] VITALS: BP 101/69
[2018-12-13] MEDS: LITHIUM CARBONATE 600 MG CAPSULE PO SCH (20:12)
[2018-12-13] MEDS: DiphenhydrAMINE HCL 50 MG CAPSULE PO SCH (20:13)
[2018-12-14 00:12] VITALS: BP 99/67
[2018-12-14] MEDS: ZOLPIDEM TARTRATE 10 MG TABLET PO PRN (02:17)
[2018-12-14 08:11] VITALS: BP 106/73
[2018-12-14] MEDS: DOCUSATE SODIUM 100 MG CAPSULE PO SCH (08:56)
[2018-12-14] MEDS: ACAMPROSATE CALCIUM 333 MG DR TABLET PO SCH ×3 (08:56→16:13)
[2018-12-14] MEDS: FluPHENAZine HCL 5 MG TABLET PO SCH ×3 (08:56→16:13)
[2018-12-14] MEDS: OMEPRAZOLE 20 MG CAPSULE PO SCH (08:56)
[2018-12-14] MEDS: LITHIUM CARBONATE 300 MG CAPSULE PO SCH (08:56)
[2018-12-14] MEDS: CHOLECALCIFEROL (VIT D3) 1,000 UNITS TABLET PO SCH (08:56)
[2018-12-14] MEDS: PARoxetine HCL 20 MG TABLET PO SCH (08:56)
[2018-12-14] MEDS: GABAPENTIN 400 MG CAPSULE PO SCH ×3 (08:56→16:13)
[2018-12-14] MEDS: MULTIVITAMINS WITH MINERALS, THERAPEUTIC TABLET PO SCH (08:56)
[2018-12-14] MEDS: GABAPENTIN 100 MG CAPSULE PO SCH ×3 (09:40→16:13)
[2018-12-14 16:16] VITALS: BP 106/66
[2018-12-14] MEDS: DiphenhydrAMINE HCL 50 MG CAPSULE PO SCH (20:09)
[2018-12-14] MEDS: LITHIUM CARBONATE 600 MG CAPSULE PO SCH (20:09)
[2018-12-15 02:13] VITALS: BP 113/81
[2018-12-15] MEDS: ChlorproMAZINE HCL 50 MG TABLET PO PRN (03:58)
[2018-12-15 08:00] VITALS: BP 94/62
[2018-12-15] MEDS: OMEPRAZOLE 20 MG CAPSULE PO SCH (08:28)
[2018-12-15] MEDS: FluPHENAZine HCL 5 MG TABLET PO SCH ×3 (08:28→16:31)
[2018-12-15] MEDS: LITHIUM CARBONATE 300 MG CAPSULE PO SCH (08:28)
[2018-12-15] MEDS: DOCUSATE SODIUM 100 MG CAPSULE PO SCH (08:28)
[2018-12-15] MEDS: CHOLECALCIFEROL (VIT D3) 1,000 UNITS TABLET PO SCH (08:28)
[2018-12-15] MEDS: PARoxetine HCL 20 MG TABLET PO SCH (08:28)
[2018-12-15] MEDS: GABAPENTIN 400 MG CAPSULE PO SCH ×3 (08:28→16:32)
[2018-12-15] MEDS: MULTIVITAMINS WITH MINERALS, THERAPEUTIC TABLET PO SCH (08:28)
[2018-12-15] MEDS: ACAMPROSATE CALCIUM 333 MG DR TABLET PO SCH ×3 (08:29→16:31)
[2018-12-15] MEDS: GABAPENTIN 100 MG CAPSULE PO SCH ×3 (08:29→16:32)
[2018-12-15 16:16] VITALS: BP 93/67
[2018-12-15] MEDS: DiphenhydrAMINE HCL 50 MG CAPSULE PO SCH (20:12)
[2018-12-15] MEDS: LITHIUM CARBONATE 600 MG CAPSULE PO SCH (20:12)
[2018-12-16 01:18] VITALS: BP 119/61
[2018-12-16 08:37] LABS: FREE T4 (FREE THYROXINE) 0.63 ng/dL (0.76-1.46); THYROID STIMULATING HORMONE 3.81 uIU/mL (0.36-3.74)
[2018-12-16 08:56] VITALS: BP 115/60
[2018-12-16] MEDS: GABAPENTIN 400 MG CAPSULE PO SCH (09:08)
[2018-12-16] MEDS: MULTIVITAMINS WITH MINERALS, THERAPEUTIC TABLET PO SCH (09:08)
[2018-12-16] MEDS: DOCUSATE SODIUM 100 MG CAPSULE PO SCH (09:09)
[2018-12-16] MEDS: CHOLECALCIFEROL (VIT D3) 1,000 UNITS TABLET PO SCH (09:09)
[2018-12-16] MEDS: GABAPENTIN 100 MG CAPSULE PO SCH (09:09)
[2018-12-16] MEDS: LITHIUM CARBONATE 300 MG CAPSULE PO SCH (09:09)
[2018-12-16] MEDS: PARoxetine HCL 20 MG TABLET PO SCH (09:09)
[2018-12-16] MEDS: FluPHENAZine HCL 5 MG TABLET PO SCH (09:09)
[2018-12-16] MEDS: ACAMPROSATE CALCIUM 333 MG DR TABLET PO SCH (09:09)
[2018-12-16] MEDS: OMEPRAZOLE 20 MG CAPSULE PO SCH (09:09)
[2018-12-16 09:11] LABS: LITHIUM 0.94 mmol/L (0.60-1.20)
[2018-12-16] MEDS ORDERED: LITH600 PO (09:14)
[2018-12-16] MEDS ORDERED: PARO20TA24 PO (09:16)
[2018-12-16] MEDS ORDERED: GABA800T PO (09:18)
[2018-12-16] MEDS ORDERED: DIPH50 PO (09:26)
[2018-12-16] MEDS ORDERED: ACAM333T7 PO (09:29)
[2018-12-16] MEDS ORDERED: VITAD1000 PO (09:35)
== END 2018-12-16 10:00 | disposition home or self-care (01) | DRG 750 ==
LOC: EMS 15:55 → 3EI 18:26 → 3EC 12-02 18:15 → B3A 12-07 01:35 → B2S 12-12 14:36
PROVIDERS: ADMIT Psychiatry & Neurology Psychiatry; ATTEND Psychiatry & Neurology Psychiatry
DX: F25.0 Schizoaffective disorder, bipolar type (principal); E86.0 Dehydration; K70.30 Alcoholic cirrhosis of liver without ascites; R45.851 Suicidal ideations; D64.9 Anemia, unspecified; E55.9 Vitamin D deficiency, unspecified; E78.00 Pure hypercholesterolemia, unspecified; F10.10 Alcohol abuse, uncomplicated; F41.9 Anxiety disorder, unspecified; G47.00 Insomnia, unspecified; G89.29 Other chronic pain; K52.9 Noninfective gastroenteritis and colitis, unspecified; N18.9 Chronic kidney disease, unspecified; Z91.5 Personal history of self-harm; Z59.0 Homelessness; Z79.899 Other long term (current) drug therapy
CPT/HCPCS: 83036; 83735; 84100; 84439; 84443; 85007; 86592; 87081; 96372; G0480; J1200; J2060; J3230; J3420

== ENCOUNTER 2018-12-07 09:39 | Emergency (ER) | payer MEDICAID ==
[~2018-12-07] VITALS: Ht 175.3 cm; Wt 95.0 kg
[~2018-12-07 09:39] MED LIST changes: -CARB200T6 PO; -HALO10 PO; -NALT50TA6 PO
[2018-12-07 10:39] LABS: GLUCOSE,POINT OF CARE 92 MG/DL (70-110)
[2018-12-07] MEDS ORDERED: SODIUM CHLORIDE 0.9% 2,000 ML IV ONE (10:45)
[2018-12-07] MEDS: ACETAMINOPHEN 500 MG TABLET PO ONE ×2 (10:46→10:54)
[2018-12-07 11:03] LABS: BASOPHILS % (AUTO) 0.7 % (0.0-2.0); EOSINOPHILS % (AUTO) 3.6 % (1.0-6.0); HEMATOCRIT 39.4 % (41-53); HEMOGLOBIN 13.4 g/dL (13.5-17.5); LYMPHOCYTES # (AUTO) 0.6 K/uL (1.0-4.8); LYMPHOCYTES % (AUTO) 12.5 % (22.0-44.0); MEAN CORPUSCULAR HEMOGLOBIN 31.8 pg (26.0-34.0); MEAN CORPUSCULAR HGB CONC 34.1 G/dL (31.0-37.0); MEAN CORPUSCULAR VOLUME 93 fL (80-100); MONOCYTES # (AUTO) 0.4 K/uL (0.1-1.0); NEUTROPHILS # (AUTO) 3.6 K/uL (1.8-7.7); NEUTROPHILS % (AUTO) 75.2 % (40.0-70.0); PLATELET COUNT (AUTO) 203 K/uL (150-450); RED BLOOD CELL COUNT(AUTO) 4.23 MIL/uL (4.50-5.90); RED CELL DISTRIBUTION WIDTH 13.4 % (11.5-14.5)
[2018-12-07] MEDS ORDERED: SODIUM CHLORIDE 0.9% 1,000 ML IV ONE (11:15)
[2018-12-07 11:22] LABS: ANION GAP 10 mmol/L (8-16); CALCIUM, TOTAL 8.9 mg/dL (8.8-10.5); CARBON DIOXIDE 25 mmol/L (22-29); CHLORIDE 111 mmol/L (98-107); CREATININE 1.05 mg/dL (0.60-1.30); GLOMERULAR FILTR. RATE CALC > 60 mL/min (>60); GLUCOSE,RANDOM 83 mg/dL (70-110); SODIUM SERUM 146 mmol/L (136-145); UREA NITROGEN, BLOOD 15 mg/dL (7-18)
[2018-12-07 11:28] LABS: ALANINE AMINOTRANSFERASE 143 U/L (12-78); ALBUMIN 3.4 g/dL (3.4-5.0); ALKALINE PHOSPHATASE 69 U/L (46-116); ASPARTATE AMINOTRANSFERASE 56 U/L (15-37); BILIRUBIN,TOTAL 0.1 mg/dL (0.1-1.0); TOTAL PROTEIN, SERUM 6.7 g/dL (6.4-8.2)
[2018-12-07 11:47] LABS: APPEARANCE,URINE TURBID (CLEAR); BILIRUBIN,URINE NEGATIVE (NEGATIVE); GLUCOSE, URINE (UA) NEGATIVE (NEGATIVE); KETONES,URINE NEGATIVE (NEGATIVE); LEUKOCYTE ESTERASE ,URINE NEGATIVE (NEGATIVE); NITRATE,URINE NEGATIVE (NEGATIVE); OCCULT BLOOD,URINE NEGATIVE (NEGATIVE); PROTEIN,URINE NEGATIVE (NEGATIVE); UROBILINOGEN,URINE 0.2 mg/dL (<=1.0)
[2018-12-07] MEDS ORDERED: PARO20TA24 PO (12:03)
[2018-12-07] MEDS ORDERED: TOPI25 PO (12:03)
[2018-12-07] MEDS ORDERED: ZOLP5 PO (12:03)
[2018-12-07] MEDS ORDERED: GABA-533 PO (12:03)
[2018-12-07] MEDS ORDERED: CHLO50 PO (12:03)
[2018-12-07] MEDS ORDERED: CHLO100T24 PO (12:03)
[2018-12-07 14:03] LABS: CREATINE KINASE, TOTAL ONLY 40 U/L (39-308)
[2018-12-07 14:40] VITALS: BP 122/68
== END 2018-12-07 14:55 | disposition home or self-care (01) ==
LOC: EMS 09:39
DX: I95.1 Orthostatic hypotension (principal); F31.9 Bipolar disorder, unspecified; R42 Dizziness and giddiness; T43.95XA Adverse effect of unspecified psychotropic drug, initial encounter; Y92.89 Other specified places as the place of occurrence of the external cause
CPT/HCPCS: 36415; 80053; 81003; 82550; 82962; 84484; 85025; 93005; 96360; 96361; 99284; J7030

== ENCOUNTER 2020-07-27 11:09 | Inpatient (IN) | payer BC, MEDICAID ==
[~2020-07-27] VITALS: Ht 170.2 cm; Wt 101.3 kg
[~2020-07-27 11:09] MED LIST changes: +ACAM333T7 PO; +CHOL100018 PO; +DIPH50 PO; +FLUP5TAB15 PO; -FOLI1 PO; -GABA-531 PO; +GABA-533 PO; +GABA800T PO; +PARO-37 PO; +PARO-38 PO; -THIA100T67 PO; -VITAD1000 PO
[2020-08-06 21:22] VITALS: BP 123/85
[2020-08-06] MEDS ORDERED: INFLUENZA VIRUS VACCINE QVS 2020-21 (6MO+)/PF 60 MCG/0.5 ML SYRINGE IM ONE (22:00)
[2020-08-06] MEDS ORDERED: ALBUTEROL SULFATE HFA 90 MCG/PUFF 8 GM INHALER IH PRN (22:15)
[2020-08-06] MEDS: ZOLPIDEM TARTRATE 10 MG TABLET PO PRN (22:30)
[2020-08-07] MEDS: HALOPERIDOL 5 MG TABLET PO PRN (04:48)
[2020-08-07] MEDS: LORazepam 2 MG TABLET PO PRN ×3 (04:48→14:19)
[2020-08-07 05:32] LABS: APPEARANCE,URINE CLEAR (CLEAR); BILIRUBIN,URINE NEGATIVE (NEGATIVE); GLUCOSE, URINE (UA) NEGATIVE (NEGATIVE); KETONES,URINE NEGATIVE (NEGATIVE); LEUKOCYTE ESTERASE ,URINE NEGATIVE (NEGATIVE); NITRATE,URINE NEGATIVE (NEGATIVE); OCCULT BLOOD,URINE NEGATIVE (NEGATIVE); PROTEIN,URINE NEGATIVE (NEGATIVE); UROBILINOGEN,URINE 0.2 mg/dL (<=1.0)
[2020-08-07 05:41] LABS: AMPHET/METH SCREEN,URINE NEGATIVE (NEGATIVE); BARBITURATE SCREEN, URINE NEGATIVE (NEGATIVE); BENZODIAZEPINES SCREEN,URINE POSITIVE (NEGATIVE); CANNABINOID SCREEN,URINE NEGATIVE (NEGATIVE); COCAINE SCREEN,URINE NEGATIVE (NEGATIVE); METHADONE SCREEN, URINE NEGATIVE (NEGATIVE); OPIATE SCREEN,URINE NEGATIVE (NEGATIVE)
[2020-08-07 05:42] LABS: PHENCYCLIDINE SCREEN,URINE NEGATIVE (NEGATIVE)
[2020-08-07 05:46] VITALS: BP 117/84
[2020-08-07 06:26] LABS: BASOPHILS % (AUTO) 0.5 % (0.0-2.0); EOSINOPHILS % (AUTO) 3.3 % (1.0-6.0); HEMATOCRIT 38.7 % (41-53); LYMPHOCYTES # (AUTO) 1.1 K/uL (1.0-4.8); LYMPHOCYTES % (AUTO) 24.2 % (22.0-44.0); MEAN CORPUSCULAR HEMOGLOBIN 30.1 pg (26.0-34.0); MEAN CORPUSCULAR HGB CONC 33.5 G/dL (31.0-37.0); MEAN CORPUSCULAR VOLUME 90 fL (80-100); MONOCYTES # (AUTO) 0.6 K/uL (0.1-1.0); MONOCYTES % (AUTO) 12.5 % (2.0-9.0); NEUTROPHILS # (AUTO) 2.6 K/uL (1.8-7.7); NEUTROPHILS % (AUTO) 59.5 % (40.0-70.0); PLATELET COUNT (AUTO) 288 K/uL (150-450); RED BLOOD CELL COUNT(AUTO) 4.31 MIL/uL (4.50-5.90); RED CELL DISTRIBUTION WIDTH 14.3 % (11.5-14.5)
[2020-08-07] MEDS ORDERED: GuaiFENesin/D-METHORPHAN [SUGAR-FREE] 200-20MG/10 ML SYRUP UDCUP PO PRN (07:00)
[2020-08-07] MEDS ORDERED: MAG HYDROX/AL HYDROX/SIMETH ES 30 ML SUSPENSION UDCUP PO PRN (07:00)
[2020-08-07] MEDS ORDERED: CloNIDine HCL 0.1 MG TABLET PO PRN (07:00)
[2020-08-07] MEDS ORDERED: PETROLATUM,WHITE 28 GM JELLY TP PRN (07:00)
[2020-08-07] MEDS ORDERED: NICOTINE 14 MG/24 HOUR PATCH TD PRN (07:00)
[2020-08-07] MEDS ORDERED: LOPERAMIDE HCL 2 MG CAPSULE PO PRN (07:00)
[2020-08-07] MEDS ORDERED: ONDANSETRON HCL 4 MG TABLET PO PRN (07:00)
[2020-08-07] MEDS ORDERED: ACETAMINOPHEN 325 MG TABLET PO PRN (07:00)
[2020-08-07] MEDS ORDERED: IBUPROFEN 400 MG TABLET PO PRN (07:00)
[2020-08-07] MEDS ORDERED: MAGNESIUM HYDROXIDE SUSPENSION 30 ML UDCUP PO PRN (07:00)
[2020-08-07] MEDS ORDERED: ALBUTEROL SULFATE HFA 90 MCG/PUFF 8 GM INHALER IH PRN (07:00)
[2020-08-07] MEDS ORDERED: DOCUSATE SODIUM 100 MG CAPSULE PO PRN (07:00)
[2020-08-07 07:16] LABS: ALANINE AMINOTRANSFERASE 59 U/L (12-78); ALBUMIN 3.5 g/dL (3.4-5.0); ALKALINE PHOSPHATASE 74 U/L (46-116); ANION GAP 9 mmol/L (8-16); ASPARTATE AMINOTRANSFERASE 32 U/L (15-37); BILIRUBIN,TOTAL 0.2 mg/dL (0.1-1.0); CALCIUM, TOTAL 9.2 mg/dL (8.8-10.5); CARBON DIOXIDE 25 mmol/L (22-29); CHLORIDE 106 mmol/L (98-107); CREATININE 0.97 mg/dL (0.60-1.30); GLOMERULAR FILTR. RATE CALC > 60 mL/min (>60); GLUCOSE,RANDOM 114 mg/dL (70-110); POTASSIUM 4.2 mmol/L (3.5-5.1); SODIUM SERUM 140 mmol/L (136-145); TOTAL PROTEIN, SERUM 6.3 g/dL (6.4-8.2); UREA NITROGEN, BLOOD 16 mg/dL (7-18)
[2020-08-07 08:00] VITALS: BP 122/75
[2020-08-07] MEDS: CYANOCOBALAMIN 500 MCG TABLET PO SCH (09:00)
[2020-08-07] MEDS: LevETIRAcetam 500 MG TABLET PO SCH ×2 (09:45→20:27)
[2020-08-07] MEDS: VITAMIN B COMP/VIT C/FOLIC ACID CAPSULE PO SCH (09:45)
[2020-08-07] MEDS: FAMOTIDINE 20 MG TABLET PO SCH ×2 (09:45→16:25)
[2020-08-07] MEDS: THIAMINE 100 MG TABLET PO SCH (09:46)
[2020-08-07] MEDS: BusPIRone HCL 10 MG TABLET PO SCH ×3 (12:15→20:27)
[2020-08-07] MEDS: GABAPENTIN 300 MG CAPSULE PO SCH (12:22)
[2020-08-07] MEDS: PARoxetine HCL 20 MG TABLET PO SCH (12:22)
[2020-08-07] MEDS: LITHIUM CARBONATE 300 MG CAPSULE PO SCH (12:23)
[2020-08-07 16:00] VITALS: BP 107/53
[2020-08-07] MEDS: LITHIUM CARBONATE 600 MG CAPSULE PO SCH (16:25)
[2020-08-07] MEDS: GABAPENTIN 400 MG CAPSULE PO SCH ×2 (16:25→20:26)
[2020-08-07] MEDS: QUEtiapine FUMARATE 200 MG TABLET PO SCH (20:27)
[2020-08-08] MEDS: LORazepam 2 MG TABLET PO PRN ×3 (03:22→18:37)
[2020-08-08] MEDS: HALOPERIDOL 5 MG TABLET PO PRN ×2 (03:22→18:37)
[2020-08-08 03:27] VITALS: BP 127/92
[2020-08-08] MEDS: GABAPENTIN 300 MG CAPSULE PO SCH (08:37)
[2020-08-08] MEDS: FAMOTIDINE 20 MG TABLET PO SCH ×2 (08:38→16:57)
[2020-08-08] MEDS: PARoxetine HCL 20 MG TABLET PO SCH (08:38)
[2020-08-08] MEDS: THIAMINE 100 MG TABLET PO SCH (08:40)
[2020-08-08] MEDS: VITAMIN B COMP/VIT C/FOLIC ACID CAPSULE PO SCH (08:40)
[2020-08-08] MEDS: CYANOCOBALAMIN 500 MCG TABLET PO SCH (08:41)
[2020-08-08] MEDS: BusPIRone HCL 10 MG TABLET PO SCH ×3 (08:42→21:04)
[2020-08-08] MEDS: LITHIUM CARBONATE 300 MG CAPSULE PO SCH (08:42)
[2020-08-08] MEDS: LevETIRAcetam 500 MG TABLET PO SCH ×2 (08:43→21:03)
[2020-08-08 09:43] VITALS: BP 118/76
[2020-08-08 16:00] VITALS: BP 90/60
[2020-08-08] MEDS: LITHIUM CARBONATE 600 MG CAPSULE PO SCH (16:57)
[2020-08-08] MEDS: GABAPENTIN 400 MG CAPSULE PO SCH ×2 (16:57→21:03)
[2020-08-08] MEDS: QUEtiapine FUMARATE 200 MG TABLET PO SCH (21:03)
[2020-08-09 08:00] VITALS: BP 117/74
[2020-08-09] MEDS: GABAPENTIN 300 MG CAPSULE PO SCH (08:55)
[2020-08-09] MEDS: PARoxetine HCL 20 MG TABLET PO SCH (08:56)
[2020-08-09] MEDS: FAMOTIDINE 20 MG TABLET PO SCH ×2 (08:56→16:41)
[2020-08-09] MEDS: LITHIUM CARBONATE 300 MG CAPSULE PO SCH (08:56)
[2020-08-09] MEDS: BusPIRone HCL 10 MG TABLET PO SCH ×3 (08:56→20:38)
[2020-08-09] MEDS: LevETIRAcetam 500 MG TABLET PO SCH ×2 (08:56→20:38)
[2020-08-09] MEDS: VITAMIN B COMP/VIT C/FOLIC ACID CAPSULE PO SCH (08:57)
[2020-08-09] MEDS: CYANOCOBALAMIN 500 MCG TABLET PO SCH (08:57)
[2020-08-09] MEDS: HALOPERIDOL 5 MG TABLET PO PRN ×2 (09:04→13:22)
[2020-08-09] MEDS: LORazepam 2 MG TABLET PO PRN ×2 (09:04→13:22)
[2020-08-09] MEDS: THIAMINE 100 MG TABLET PO SCH (09:05)
[2020-08-09 16:00] VITALS: BP 110/60
[2020-08-09] MEDS: LITHIUM CARBONATE 600 MG CAPSULE PO SCH (16:41)
[2020-08-09] MEDS: GABAPENTIN 400 MG CAPSULE PO SCH ×2 (16:41→20:37)
[2020-08-09] MEDS: QUEtiapine FUMARATE 200 MG TABLET PO SCH (20:37)
[2020-08-10 02:20] VITALS: BP 106/66
[2020-08-10] MEDS: LORazepam 2 MG TABLET PO PRN ×3 (02:26→14:30)
[2020-08-10] MEDS: HALOPERIDOL 5 MG TABLET PO PRN ×3 (02:26→14:29)
[2020-08-10] MEDS: ZOLPIDEM TARTRATE 10 MG TABLET PO PRN (02:26)
[2020-08-10] MEDS: CYANOCOBALAMIN 500 MCG TABLET PO SCH (09:01)
[2020-08-10] MEDS: VITAMIN B COMP/VIT C/FOLIC ACID CAPSULE PO SCH (09:01)
[2020-08-10] MEDS: BusPIRone HCL 10 MG TABLET PO SCH ×3 (09:01→20:49)
[2020-08-10] MEDS: LITHIUM CARBONATE 300 MG CAPSULE PO SCH (09:05)
[2020-08-10] MEDS: THIAMINE 100 MG TABLET PO SCH (09:05)
[2020-08-10] MEDS: GABAPENTIN 300 MG CAPSULE PO SCH (09:05)
[2020-08-10] MEDS: LevETIRAcetam 500 MG TABLET PO SCH ×2 (09:06→20:49)
[2020-08-10] MEDS: FAMOTIDINE 20 MG TABLET PO SCH ×2 (09:06→16:25)
[2020-08-10] MEDS: PARoxetine HCL 20 MG TABLET PO SCH (09:06)
[2020-08-10 12:11] VITALS: BP 142/81
[2020-08-10 16:00] VITALS: BP 104/68
[2020-08-10] MEDS: GABAPENTIN 400 MG CAPSULE PO SCH ×2 (16:25→20:49)
[2020-08-10] MEDS: LITHIUM CARBONATE 600 MG CAPSULE PO SCH (16:25)
[2020-08-10] MEDS: QUEtiapine FUMARATE 200 MG TABLET PO SCH (20:49)
[2020-08-11] MEDS: LORazepam 2 MG TABLET PO PRN ×4 (02:16→18:16)
[2020-08-11] MEDS: ZOLPIDEM TARTRATE 10 MG TABLET PO PRN (02:16)
[2020-08-11] MEDS: HALOPERIDOL 5 MG TABLET PO PRN ×3 (02:16→18:16)
[2020-08-11 02:24] VITALS: BP 134/84
[2020-08-11] MEDS: LITHIUM CARBONATE 300 MG CAPSULE PO SCH (08:17)
[2020-08-11] MEDS: GABAPENTIN 300 MG CAPSULE PO SCH (08:17)
[2020-08-11] MEDS: FAMOTIDINE 20 MG TABLET PO SCH ×2 (08:17→16:14)
[2020-08-11] MEDS: BusPIRone HCL 10 MG TABLET PO SCH ×3 (08:18→20:43)
[2020-08-11] MEDS: THIAMINE 100 MG TABLET PO SCH (08:18)
[2020-08-11] MEDS: PARoxetine HCL 20 MG TABLET PO SCH (08:18)
[2020-08-11] MEDS: VITAMIN B COMP/VIT C/FOLIC ACID CAPSULE PO SCH (08:18)
[2020-08-11] MEDS: CYANOCOBALAMIN 500 MCG TABLET PO SCH (08:21)
[2020-08-11 08:34] VITALS: BP 127/90
[2020-08-11] MEDS: LevETIRAcetam 500 MG TABLET PO SCH ×2 (10:25→20:43)
[2020-08-11] MEDS: LITHIUM CARBONATE 600 MG CAPSULE PO SCH (16:15)
[2020-08-11] MEDS: GABAPENTIN 400 MG CAPSULE PO SCH ×2 (16:15→20:44)
[2020-08-11 17:18] VITALS: BP 122/67
[2020-08-11 17:22] VITALS: BP 112/72
[2020-08-11] MEDS: QUEtiapine FUMARATE 200 MG TABLET PO SCH (20:43)
[2020-08-12] MEDS: HALOPERIDOL 5 MG TABLET PO PRN ×3 (08:06→17:53)
[2020-08-12] MEDS: THIAMINE 100 MG TABLET PO SCH (08:06)
[2020-08-12] MEDS: LITHIUM CARBONATE 300 MG CAPSULE PO SCH (08:06)
[2020-08-12] MEDS: GABAPENTIN 300 MG CAPSULE PO SCH (08:06)
[2020-08-12] MEDS: VITAMIN B COMP/VIT C/FOLIC ACID CAPSULE PO SCH (08:07)
[2020-08-12] MEDS: FAMOTIDINE 20 MG TABLET PO SCH ×2 (08:07→16:22)
[2020-08-12] MEDS: LevETIRAcetam 500 MG TABLET PO SCH ×2 (08:07→20:49)
[2020-08-12] MEDS: PARoxetine HCL 20 MG TABLET PO SCH (08:07)
[2020-08-12] MEDS: LORazepam 2 MG TABLET PO PRN ×3 (08:07→17:53)
[2020-08-12] MEDS: CYANOCOBALAMIN 500 MCG TABLET PO SCH (08:08)
[2020-08-12] MEDS: BusPIRone HCL 10 MG TABLET PO SCH ×3 (08:08→20:49)
[2020-08-12 09:06] VITALS: BP 121/82
[2020-08-12 16:00] VITALS: BP 122/76
[2020-08-12] MEDS: LITHIUM CARBONATE 600 MG CAPSULE PO SCH (16:23)
[2020-08-12] MEDS: GABAPENTIN 400 MG CAPSULE PO SCH ×2 (16:25→20:50)
[2020-08-12] MEDS: QUEtiapine FUMARATE 200 MG TABLET PO SCH (20:49)
[2020-08-13] MEDS: ZOLPIDEM TARTRATE 10 MG TABLET PO PRN (01:35)
[2020-08-13] MEDS: HALOPERIDOL 5 MG TABLET PO PRN ×3 (01:35→13:23)
[2020-08-13] MEDS: LORazepam 2 MG TABLET PO PRN ×3 (01:35→13:23)
[2020-08-13 08:00] VITALS: BP 112/75
[2020-08-13] MEDS: GABAPENTIN 300 MG CAPSULE PO SCH (08:14)
[2020-08-13] MEDS: PARoxetine HCL 20 MG TABLET PO SCH (08:14)
[2020-08-13] MEDS: VITAMIN B COMP/VIT C/FOLIC ACID CAPSULE PO SCH (08:15)
[2020-08-13] MEDS: LevETIRAcetam 500 MG TABLET PO SCH ×2 (08:15→20:28)
[2020-08-13] MEDS: LITHIUM CARBONATE 300 MG CAPSULE PO SCH (08:15)
[2020-08-13] MEDS: THIAMINE 100 MG TABLET PO SCH (08:15)
[2020-08-13] MEDS: FAMOTIDINE 20 MG TABLET PO SCH ×2 (08:16→16:51)
[2020-08-13] MEDS: BusPIRone HCL 10 MG TABLET PO SCH ×3 (08:16→20:27)
[2020-08-13] MEDS: CYANOCOBALAMIN 500 MCG TABLET PO SCH (13:22)
[2020-08-13 16:00] VITALS: BP 120/65
[2020-08-13] MEDS: LITHIUM CARBONATE 600 MG CAPSULE PO SCH (16:51)
[2020-08-13] MEDS: GABAPENTIN 400 MG CAPSULE PO SCH ×2 (16:51→20:28)
[2020-08-13] MEDS: QUEtiapine FUMARATE 200 MG TABLET PO SCH (20:28)
[2020-08-14 01:45] VITALS: BP 111/64
[2020-08-14] MEDS: LORazepam 2 MG TABLET PO PRN ×3 (01:47→12:37)
[2020-08-14] MEDS: ZOLPIDEM TARTRATE 10 MG TABLET PO PRN ×2 (01:47→21:58)
[2020-08-14] MEDS: HALOPERIDOL 5 MG TABLET PO PRN ×2 (01:47→08:04)
[2020-08-14] MEDS: LITHIUM CARBONATE 300 MG CAPSULE PO SCH (08:03)
[2020-08-14] MEDS: PARoxetine HCL 20 MG TABLET PO SCH (08:03)
[2020-08-14] MEDS: LevETIRAcetam 500 MG TABLET PO SCH ×2 (08:03→20:46)
[2020-08-14] MEDS: BusPIRone HCL 10 MG TABLET PO SCH ×3 (08:03→20:46)
[2020-08-14] MEDS: GABAPENTIN 300 MG CAPSULE PO SCH (08:04)
[2020-08-14] MEDS: FAMOTIDINE 20 MG TABLET PO SCH ×2 (08:04→16:29)
[2020-08-14] MEDS: THIAMINE 100 MG TABLET PO SCH (08:04)
[2020-08-14] MEDS: VITAMIN B COMP/VIT C/FOLIC ACID CAPSULE PO SCH (08:04)
[2020-08-14] MEDS: CYANOCOBALAMIN 500 MCG TABLET PO SCH (08:05)
[2020-08-14 08:56] VITALS: BP 105/54
[2020-08-14 16:00] VITALS: BP 105/64
[2020-08-14] MEDS: LITHIUM CARBONATE 600 MG CAPSULE PO SCH (16:29)
[2020-08-14] MEDS: GABAPENTIN 400 MG CAPSULE PO SCH ×2 (16:29→20:45)
[2020-08-14] MEDS: QUEtiapine FUMARATE 200 MG TABLET PO SCH (20:45)
[2020-08-15 03:40] VITALS: BP 107/74
[2020-08-15] MEDS: LORazepam 2 MG TABLET PO PRN ×3 (03:42→12:27)
[2020-08-15] MEDS: HALOPERIDOL 5 MG TABLET PO PRN ×3 (03:42→12:27)
[2020-08-15 08:00] VITALS: BP 112/71
[2020-08-15] MEDS: THIAMINE 100 MG TABLET PO SCH (08:05)
[2020-08-15] MEDS: BusPIRone HCL 10 MG TABLET PO SCH ×3 (08:05→20:19)
[2020-08-15] MEDS: LITHIUM CARBONATE 300 MG CAPSULE PO SCH (08:06)
[2020-08-15] MEDS: LevETIRAcetam 500 MG TABLET PO SCH ×2 (08:06→20:19)
[2020-08-15] MEDS: FAMOTIDINE 20 MG TABLET PO SCH ×2 (08:06→16:06)
[2020-08-15] MEDS: PARoxetine HCL 20 MG TABLET PO SCH (08:06)
[2020-08-15] MEDS: VITAMIN B COMP/VIT C/FOLIC ACID CAPSULE PO SCH (08:06)
[2020-08-15] MEDS: GABAPENTIN 300 MG CAPSULE PO SCH (08:06)
[2020-08-15] MEDS: CYANOCOBALAMIN 500 MCG TABLET PO SCH (08:06)
[2020-08-15] MEDS: GABAPENTIN 400 MG CAPSULE PO SCH ×2 (16:06→20:19)
[2020-08-15] MEDS: LITHIUM CARBONATE 600 MG CAPSULE PO SCH (16:06)
[2020-08-15 17:00] VITALS: BP 116/77
[2020-08-15] MEDS: QUEtiapine FUMARATE 200 MG TABLET PO SCH (20:19)
[2020-08-16] MEDS: LORazepam 2 MG TABLET PO PRN ×3 (02:37→15:59)
[2020-08-16] MEDS: ZOLPIDEM TARTRATE 10 MG TABLET PO PRN (02:37)
[2020-08-16] MEDS: GABAPENTIN 300 MG CAPSULE PO SCH (08:37)
[2020-08-16] MEDS: PARoxetine HCL 20 MG TABLET PO SCH (08:38)
[2020-08-16] MEDS: BusPIRone HCL 10 MG TABLET PO SCH ×3 (08:39→20:39)
[2020-08-16] MEDS: FAMOTIDINE 20 MG TABLET PO SCH ×2 (08:39→16:00)
[2020-08-16] MEDS: THIAMINE 100 MG TABLET PO SCH (08:39)
[2020-08-16] MEDS: VITAMIN B COMP/VIT C/FOLIC ACID CAPSULE PO SCH (08:39)
[2020-08-16] MEDS: LITHIUM CARBONATE 300 MG CAPSULE PO SCH (08:39)
[2020-08-16] MEDS: CYANOCOBALAMIN 500 MCG TABLET PO SCH (08:40)
[2020-08-16] MEDS: LevETIRAcetam 500 MG TABLET PO SCH ×2 (08:42→20:41)
[2020-08-16 09:28] VITALS: BP 117/80
[2020-08-16] MEDS: HALOPERIDOL 5 MG TABLET PO PRN (15:59)
[2020-08-16 16:00] VITALS: BP 105/71
[2020-08-16] MEDS: LITHIUM CARBONATE 600 MG CAPSULE PO SCH (16:00)
[2020-08-16] MEDS: GABAPENTIN 400 MG CAPSULE PO SCH ×2 (16:01→20:41)
[2020-08-16] MEDS: QUEtiapine FUMARATE 200 MG TABLET PO SCH (20:41)
[2020-08-17] MEDS: LORazepam 2 MG TABLET PO PRN ×3 (01:17→13:01)
[2020-08-17] MEDS: HALOPERIDOL 5 MG TABLET PO PRN ×3 (01:17→13:01)
[2020-08-17] MEDS: ZOLPIDEM TARTRATE 10 MG TABLET PO PRN (01:17)
[2020-08-17] MEDS: BusPIRone HCL 10 MG TABLET PO SCH ×3 (08:51→20:52)
[2020-08-17] MEDS: LITHIUM CARBONATE 600 MG CAPSULE PO SCH ×2 (08:51→16:46)
[2020-08-17] MEDS: VITAMIN B COMP/VIT C/FOLIC ACID CAPSULE PO SCH (08:51)
[2020-08-17] MEDS: GABAPENTIN 300 MG CAPSULE PO SCH (08:51)
[2020-08-17] MEDS: PARoxetine HCL 20 MG TABLET PO SCH (08:51)
[2020-08-17] MEDS: THIAMINE 100 MG TABLET PO SCH (08:52)
[2020-08-17] MEDS: FAMOTIDINE 20 MG TABLET PO SCH ×2 (08:52→16:47)
[2020-08-17] MEDS: CYANOCOBALAMIN 500 MCG TABLET PO SCH (08:52)
[2020-08-17] MEDS: LevETIRAcetam 500 MG TABLET PO SCH ×2 (08:52→20:52)
[2020-08-17 14:57] VITALS: BP 109/65
[2020-08-17 16:05] VITALS: BP 112/66
[2020-08-17] MEDS: GABAPENTIN 400 MG CAPSULE PO SCH ×2 (16:47→20:52)
[2020-08-17] MEDS: QUEtiapine FUMARATE 200 MG TABLET PO SCH (20:52)
[2020-08-18] MEDS: ZOLPIDEM TARTRATE 10 MG TABLET PO PRN (02:21)
[2020-08-18 02:22] VITALS: BP 107/72
[2020-08-18] MEDS: HALOPERIDOL 5 MG TABLET PO PRN ×4 (02:22→17:06)
[2020-08-18] MEDS: LORazepam 2 MG TABLET PO PRN ×4 (02:22→17:06)
[2020-08-18] MEDS: LevETIRAcetam 500 MG TABLET PO SCH ×2 (08:03→20:31)
[2020-08-18] MEDS: VITAMIN B COMP/VIT C/FOLIC ACID CAPSULE PO SCH (08:03)
[2020-08-18] MEDS: BusPIRone HCL 10 MG TABLET PO SCH ×3 (08:03→20:32)
[2020-08-18] MEDS: GABAPENTIN 300 MG CAPSULE PO SCH (08:03)
[2020-08-18] MEDS: THIAMINE 100 MG TABLET PO SCH (08:03)
[2020-08-18] MEDS: LITHIUM CARBONATE 600 MG CAPSULE PO SCH ×2 (08:03→16:46)
[2020-08-18] MEDS: CYANOCOBALAMIN 500 MCG TABLET PO SCH (08:04)
[2020-08-18] MEDS: PARoxetine HCL 20 MG TABLET PO SCH (08:04)
[2020-08-18] MEDS: FAMOTIDINE 20 MG TABLET PO SCH ×2 (08:07→16:46)
[2020-08-18 10:15] VITALS: BP 144/96
[2020-08-18 16:23] LABS: COVID AG,FIA SOURCE NASOPHARYNGEAL
[2020-08-18] MEDS: GABAPENTIN 400 MG CAPSULE PO SCH ×2 (16:46→20:31)
[2020-08-18 16:52] VITALS: BP 112/74
[2020-08-18] MEDS: QUEtiapine FUMARATE 200 MG TABLET PO SCH (20:31)
[2020-08-19] MEDS: THIAMINE 100 MG TABLET PO SCH (08:09)
[2020-08-19] MEDS: LevETIRAcetam 500 MG TABLET PO SCH ×2 (08:10→20:37)
[2020-08-19] MEDS: PARoxetine HCL 20 MG TABLET PO SCH (08:10)
[2020-08-19] MEDS: GABAPENTIN 300 MG CAPSULE PO SCH (08:10)
[2020-08-19] MEDS: FAMOTIDINE 20 MG TABLET PO SCH ×2 (08:10→16:13)
[2020-08-19] MEDS: LITHIUM CARBONATE 600 MG CAPSULE PO SCH ×2 (08:10→16:13)
[2020-08-19] MEDS: LORazepam 2 MG TABLET PO PRN ×3 (08:10→16:31)
[2020-08-19] MEDS: VITAMIN B COMP/VIT C/FOLIC ACID CAPSULE PO SCH (08:10)
[2020-08-19] MEDS: CYANOCOBALAMIN 500 MCG TABLET PO SCH (08:10)
[2020-08-19] MEDS: BusPIRone HCL 10 MG TABLET PO SCH ×3 (08:10→20:40)
[2020-08-19] MEDS: HALOPERIDOL 5 MG TABLET PO PRN ×3 (08:10→16:31)
[2020-08-19] MEDS: GABAPENTIN 400 MG CAPSULE PO SCH ×2 (16:13→20:37)
[2020-08-19 16:28] VITALS: BP 117/78
[2020-08-19] MEDS: QUEtiapine FUMARATE 200 MG TABLET PO SCH (20:37)
[2020-08-20 02:40] VITALS: BP 130/78
[2020-08-20] MEDS: LORazepam 2 MG TABLET PO PRN ×4 (02:46→21:05)
[2020-08-20] MEDS: ZOLPIDEM TARTRATE 10 MG TABLET PO PRN (02:46)
[2020-08-20] MEDS: HALOPERIDOL 5 MG TABLET PO PRN ×4 (02:46→21:05)
[2020-08-20] MEDS: LITHIUM CARBONATE 600 MG CAPSULE PO SCH ×2 (09:15→16:31)
[2020-08-20] MEDS: FAMOTIDINE 20 MG TABLET PO SCH ×2 (09:15→16:31)
[2020-08-20] MEDS: LevETIRAcetam 500 MG TABLET PO SCH ×2 (09:15→20:52)
[2020-08-20] MEDS: THIAMINE 100 MG TABLET PO SCH (09:16)
[2020-08-20] MEDS: PARoxetine HCL 20 MG TABLET PO SCH (09:16)
[2020-08-20] MEDS: BusPIRone HCL 10 MG TABLET PO SCH ×3 (09:16→20:52)
[2020-08-20] MEDS: GABAPENTIN 300 MG CAPSULE PO SCH (09:16)
[2020-08-20] MEDS: CYANOCOBALAMIN 500 MCG TABLET PO SCH (09:16)
[2020-08-20] MEDS: VITAMIN B COMP/VIT C/FOLIC ACID CAPSULE PO SCH (09:16)
[2020-08-20 10:00] VITALS: BP 121/79
[2020-08-20 16:00] VITALS: BP 100/66
[2020-08-20] MEDS: GABAPENTIN 400 MG CAPSULE PO SCH ×2 (16:32→20:53)
[2020-08-20] MEDS: QUEtiapine FUMARATE 200 MG TABLET PO SCH (20:54)
[2020-08-21] MEDS: LORazepam 2 MG TABLET PO PRN ×3 (02:04→14:00)
[2020-08-21] MEDS: ZOLPIDEM TARTRATE 10 MG TABLET PO PRN (02:04)
[2020-08-21] MEDS: THIAMINE 100 MG TABLET PO SCH (08:33)
[2020-08-21] MEDS: FAMOTIDINE 20 MG TABLET PO SCH ×2 (08:34→16:52)
[2020-08-21] MEDS: VITAMIN B COMP/VIT C/FOLIC ACID CAPSULE PO SCH (08:34)
[2020-08-21] MEDS: PARoxetine HCL 20 MG TABLET PO SCH (08:34)
[2020-08-21] MEDS: GABAPENTIN 300 MG CAPSULE PO SCH (08:34)
[2020-08-21] MEDS: LITHIUM CARBONATE 600 MG CAPSULE PO SCH ×2 (08:35→16:51)
[2020-08-21] MEDS: BusPIRone HCL 10 MG TABLET PO SCH ×3 (08:35→20:53)
[2020-08-21] MEDS: CYANOCOBALAMIN 500 MCG TABLET PO SCH (08:35)
[2020-08-21] MEDS: LevETIRAcetam 500 MG TABLET PO SCH ×2 (08:37→20:53)
[2020-08-21] MEDS: HALOPERIDOL 5 MG TABLET PO PRN ×2 (08:37→14:00)
[2020-08-21 09:35] VITALS: BP 131/75
[2020-08-21 16:00] VITALS: BP 128/73
[2020-08-21] MEDS: GABAPENTIN 400 MG CAPSULE PO SCH ×2 (16:51→20:53)
[2020-08-21] MEDS: QUEtiapine FUMARATE 200 MG TABLET PO SCH (20:53)
[2020-08-22] MEDS: LORazepam 2 MG TABLET PO PRN ×3 (05:13→17:30)
[2020-08-22] MEDS: HALOPERIDOL 5 MG TABLET PO PRN ×3 (05:13→17:30)
[2020-08-22 09:22] VITALS: BP 115/64
[2020-08-22] MEDS: FAMOTIDINE 20 MG TABLET PO SCH ×2 (10:01→16:14)
[2020-08-22] MEDS: PARoxetine HCL 20 MG TABLET PO SCH (10:01)
[2020-08-22] MEDS: GABAPENTIN 300 MG CAPSULE PO SCH (10:01)
[2020-08-22] MEDS: VITAMIN B COMP/VIT C/FOLIC ACID CAPSULE PO SCH (10:04)
[2020-08-22] MEDS: THIAMINE 100 MG TABLET PO SCH (10:04)
[2020-08-22] MEDS: LITHIUM CARBONATE 600 MG CAPSULE PO SCH ×2 (10:05→16:14)
[2020-08-22] MEDS: BusPIRone HCL 10 MG TABLET PO SCH ×3 (10:05→20:21)
[2020-08-22] MEDS: CYANOCOBALAMIN 500 MCG TABLET PO SCH (10:06)
[2020-08-22] MEDS: LevETIRAcetam 500 MG TABLET PO SCH ×2 (10:06→20:22)
[2020-08-22] MEDS: GABAPENTIN 400 MG CAPSULE PO SCH ×2 (16:14→20:22)
[2020-08-22 16:54] VITALS: BP 136/70
[2020-08-22] MEDS: QUEtiapine FUMARATE 200 MG TABLET PO SCH (20:22)
[2020-08-23] MEDS: HALOPERIDOL 5 MG TABLET PO PRN ×3 (03:51→13:02)
[2020-08-23] MEDS: LORazepam 2 MG TABLET PO PRN ×3 (03:51→13:02)
[2020-08-23 04:03] VITALS: BP 159/87
[2020-08-23 08:56] VITALS: BP 115/67
[2020-08-23] MEDS: PARoxetine HCL 20 MG TABLET PO SCH (08:57)
[2020-08-23] MEDS: THIAMINE 100 MG TABLET PO SCH (08:57)
[2020-08-23] MEDS: FAMOTIDINE 20 MG TABLET PO SCH (08:57)
[2020-08-23] MEDS: CYANOCOBALAMIN 500 MCG TABLET PO SCH (08:57)
[2020-08-23] MEDS: BusPIRone HCL 10 MG TABLET PO SCH (08:58)
[2020-08-23] MEDS: LITHIUM CARBONATE 600 MG CAPSULE PO SCH (08:58)
[2020-08-23] MEDS: VITAMIN B COMP/VIT C/FOLIC ACID CAPSULE PO SCH (08:58)
[2020-08-23] MEDS: LevETIRAcetam 500 MG TABLET PO SCH (08:58)
[2020-08-23] MEDS: GABAPENTIN 300 MG CAPSULE PO SCH (08:58)
[2020-08-23] MEDS ORDERED: BUSP10TA23 PO ×2 (11:11)
[2020-08-23] MEDS ORDERED: GABA-1181 PO (11:17)
[2020-08-23] MEDS ORDERED: GABA-1201 PO ×2 (11:17)
[2020-08-23] MEDS ORDERED: LITH600 PO (11:18)
[2020-08-23] MEDS ORDERED: PARO-38 PO (11:20)
[2020-08-23] MEDS ORDERED: QUET200T PO (11:26)
[2020-08-23] MEDS ORDERED: LEVE500T53 PO (12:45)
[2020-08-23] MEDS ORDERED: FAMO20 PO (12:46)
== END 2020-08-23 13:30 | disposition home or self-care (01) | DRG 885 ==
LOC: 3EI 08-06 17:45
PROVIDERS: ADMIT Psychiatry & Neurology Psychiatry; ATTEND Psychiatry & Neurology Psychiatry
DX: F25.0 Schizoaffective disorder, bipolar type (principal); R45.851 Suicidal ideations; E11.9 Type 2 diabetes mellitus without complications; F32.9 Major depressive disorder, single episode, unspecified; F41.9 Anxiety disorder, unspecified; Z20.828 Contact with and (suspected) exposure to other viral communicable diseases; K52.9 Noninfective gastroenteritis and colitis, unspecified; K70.30 Alcoholic cirrhosis of liver without ascites; G47.00 Insomnia, unspecified; K59.00 Constipation, unspecified; F19.10 Other psychoactive substance abuse, uncomplicated; G40.909 Epilepsy, unspecified, not intractable, without status epilepticus; Z91.5 Personal history of self-harm; Z23 Encounter for immunization; Z79.899 Other long term (current) drug therapy; Z72.0 Tobacco use
CPT/HCPCS: 80307; 83036; 87081; 87426; 90686

== ENCOUNTER 2021-08-30 14:02 | Emergency (ER) | payer BC, MEDICAID, OTHER ==
[~2021-08-30] VITALS: Ht 177.8 cm; Wt 95.5 kg
[~2021-08-30 14:02] MED LIST changes: -ACAM333T7 PO; +BUSP10TA23 PO; -CHOL100018 PO; -DIPH50 PO; +FAMO20 PO; -FLUP5TAB15 PO; +GABA-1181 PO; +GABA-1201 PO; -GABA-533 PO; -GABA800T PO; +LEVE500T20 PO; -LITH300C3 PO; -LITH600 PO; +LITH600C5 PO; -PARO-37 PO; +QUET200T PO
[2021-08-30] MEDS ORDERED: HALOPERIDOL 5 MG TABLET PO ONE (15:15)
[2021-08-30] MEDS ORDERED: LORazepam 1 MG TABLET PO ONE (15:15)
[2021-08-30 15:51] VITALS: BP 146/80
== END 2021-08-30 15:58 | disposition home or self-care (01) ==
LOC: EMS 14:02
DX: F31.9 Bipolar disorder, unspecified (principal); F41.9 Anxiety disorder, unspecified; F25.9 Schizoaffective disorder, unspecified
CPT/HCPCS: 99283; 99284

== ENCOUNTER 2022-05-21 15:49 | Inpatient (IN) | payer MEDICAID, OTHER ==
[~2022-05-21] VITALS: Ht 175.3 cm; Wt 91.7 kg
[2022-05-21] MEDS ORDERED: HALO10TA21 PO (16:11)
[2022-05-21] MEDS ORDERED: QUET25TA PO (16:11)
[2022-05-21] MEDS ORDERED: BENZ0.5T49 PO (16:11)
[2022-05-21] MEDS ORDERED: LAMO25TA25 PO (16:11)
[2022-05-21] MEDS ORDERED: VENL-53 PO (16:11)
[2022-05-21] MEDS ORDERED: GABA-1216 PO (16:11)
[2022-05-21 16:25] LABS: BASOPHILS % (AUTO) 0.8 % (0.0-2.0); EOSINOPHILS % (AUTO) 0.7 % (1.0-6.0); HEMATOCRIT 38.8 % (41-53); HEMOGLOBIN 13.1 g/dL (13.5-17.5); LYMPHOCYTES % (AUTO) 21.4 % (22.0-44.0); MEAN CORPUSCULAR HEMOGLOBIN 29.1 pg (26.0-34.0); MEAN CORPUSCULAR HGB CONC 33.7 G/dL (31.0-37.0); MEAN CORPUSCULAR VOLUME 86 fL (80-100); MONOCYTES # (AUTO) 0.3 K/uL (0.1-1.0); MONOCYTES % (AUTO) 7.1 % (2.0-9.0); NEUTROPHILS # (AUTO) 3.3 K/uL (1.8-7.7); PLATELET COUNT (AUTO) 219 K/uL (150-450); RED BLOOD CELL COUNT(AUTO) 4.49 MIL/uL (4.50-5.90); RED CELL DISTRIBUTION WIDTH 14.2 % (11.5-14.5)
[2022-05-21 16:26] LABS: COVID AG,FIA SOURCE NASOPHARYNGEAL
[2022-05-21] MEDS ORDERED: VENL-67 PO (16:26)
[2022-05-21] MEDS ORDERED: BENZ1TAB96 PO (16:26)
[2022-05-21] MEDS ORDERED: GABA600T10 PO (16:26)
[2022-05-21] MEDS ORDERED: QUET300T19 PO (16:26)
[2022-05-21] MEDS ORDERED: LAMO200T10 PO (16:26)
[2022-05-21] MEDS ORDERED: PERTUSS(ACELL),DIPH,TET VAC/PF 0.5 ML SYRINGE IM. ONE (16:30)
[2022-05-21 16:37] LABS: ANION GAP 10 mmol/L (8-16); CALCIUM, TOTAL 8.8 mg/dL (8.8-10.5); CARBON DIOXIDE 25 mmol/L (22-29); CHLORIDE 100 mmol/L (98-107); GLUCOSE,RANDOM 105 mg/dL (70-110); POTASSIUM 3.8 mmol/L (3.5-5.1); SODIUM SERUM 135 mmol/L (136-145); UREA NITROGEN, BLOOD 17 mg/dL (7-18)
[2022-05-21 16:38] LABS: GLOMERULAR FILTR. RATE CALC > 60 mL/min (>60)
[2022-05-21 16:43] LABS: ALANINE AMINOTRANSFERASE 23 U/L (12-78); ALKALINE PHOSPHATASE 101 U/L (46-116); ASPARTATE AMINOTRANSFERASE 14 U/L (15-37); BILIRUBIN,TOTAL 0.3 mg/dL (0.1-1.0); TOTAL PROTEIN, SERUM 7.2 g/dL (6.4-8.2)
[2022-05-21] MEDS ORDERED: ZOLPIDEM TARTRATE 10 MG TABLET PO PRN (18:00)
[2022-05-21] MEDS: HALOPERIDOL 5 MG TABLET PO PRN (20:53)
[2022-05-21 21:43] VITALS: BP 135/80
[2022-05-21 21:47] VITALS: BP 135/80
[2022-05-21 21:54] VITALS: BP 135/80
[2022-05-22] MEDS: LORazepam 2 MG TABLET PO PRN ×3 (02:11→13:07)
[2022-05-22] MEDS: HALOPERIDOL 5 MG TABLET PO PRN ×2 (02:11→08:45)
[2022-05-22] MEDS ORDERED: ACETAMINOPHEN 325 MG TABLET PO PRN (06:30)
[2022-05-22] MEDS ORDERED: ONDANSETRON HCL 4 MG TABLET PO PRN (06:30)
[2022-05-22] MEDS ORDERED: MAG HYDROX/AL HYDROX/SIMETH ES 30 ML SUSPENSION UDCUP PO PRN (06:30)
[2022-05-22] MEDS ORDERED: CloNIDine HCL 0.1 MG TABLET PO PRN (06:30)
[2022-05-22] MEDS ORDERED: PETROLATUM,WHITE 28 GM JELLY TP PRN (06:30)
[2022-05-22] MEDS ORDERED: IBUPROFEN 400 MG TABLET PO PRN (06:30)
[2022-05-22] MEDS ORDERED: MAGNESIUM HYDROXIDE SUSPENSION 30 ML UDCUP PO PRN (06:30)
[2022-05-22] MEDS ORDERED: NICOTINE 14 MG/24 HOUR PATCH TD PRN (06:30)
[2022-05-22] MEDS ORDERED: ALBUTEROL SULFATE HFA 90 MCG/PUFF 8 GM INHALER IH PRN (06:30)
[2022-05-22] MEDS ORDERED: LOPERAMIDE HCL 2 MG CAPSULE PO PRN (06:30)
[2022-05-22] MEDS ORDERED: DOCUSATE SODIUM 100 MG CAPSULE PO PRN (06:30)
[2022-05-22] MEDS ORDERED: GuaiFENesin/D-METHORPHAN [SUGAR-FREE] 200-20MG/10 ML SYRUP UDCUP PO PRN (06:30)
[2022-05-22] MEDS: NICOTINE 14 MG/24 HOUR PATCH TD SCH (08:46)
[2022-05-22] MEDS: BACITRACIN 28 GM OINTMENT TP SCH ×2 (09:00→17:00)
[2022-05-22 09:15] VITALS: BP 117/74
[2022-05-22] MEDS ORDERED: HALOPERIDOL 10 MG TABLET PO ONE (12:45)
[2022-05-22] MEDS: VENLAFAXINE HCL 75 MG ER CAPSULE PO SCH (13:08)
[2022-05-22] MEDS: BENZTROPINE MESYLATE 1 MG TABLET PO SCH (20:18)
[2022-05-22] MEDS: QUEtiapine FUMARATE 300 MG TABLET PO SCH (20:18)
[2022-05-23 08:48] VITALS: BP 112/76
[2022-05-23] MEDS: LORazepam 2 MG TABLET PO PRN ×2 (09:00→16:31)
[2022-05-23] MEDS: BENZTROPINE MESYLATE 1 MG TABLET PO SCH ×2 (09:00→20:43)
[2022-05-23] MEDS: VENLAFAXINE HCL 75 MG ER CAPSULE PO SCH (09:01)
[2022-05-23] MEDS: NICOTINE 14 MG/24 HOUR PATCH TD SCH (09:03)
[2022-05-23] MEDS: BACITRACIN 28 GM OINTMENT TP SCH ×2 (09:07→16:33)
[2022-05-23] MEDS: QUEtiapine FUMARATE 300 MG TABLET PO SCH (20:43)
[2022-05-23] MEDS: HALOPERIDOL 10 MG TABLET PO SCH (20:43)
[2022-05-24] MEDS: VENLAFAXINE HCL 75 MG ER CAPSULE PO SCH (08:25)
[2022-05-24] MEDS: BENZTROPINE MESYLATE 1 MG TABLET PO SCH ×2 (08:25→20:39)
[2022-05-24] MEDS: NICOTINE 14 MG/24 HOUR PATCH TD SCH (08:26)
[2022-05-24] MEDS: LORazepam 2 MG TABLET PO PRN ×2 (08:27→17:10)
[2022-05-24] MEDS: BACITRACIN 28 GM OINTMENT TP SCH ×2 (08:29→16:04)
[2022-05-24 09:21] VITALS: BP 111/72
[2022-05-24 16:21] VITALS: BP 101/67
[2022-05-24 17:09] VITALS: BP 115/67
[2022-05-24] MEDS: HALOPERIDOL 10 MG TABLET PO SCH (20:39)
[2022-05-24] MEDS: QUEtiapine FUMARATE 300 MG TABLET PO SCH (20:39)
[2022-05-25 08:47] VITALS: BP 105/72
[2022-05-25] MEDS: BENZTROPINE MESYLATE 1 MG TABLET PO SCH ×2 (08:48→20:12)
[2022-05-25] MEDS: VENLAFAXINE HCL 75 MG ER CAPSULE PO SCH (08:48)
[2022-05-25] MEDS: NICOTINE 14 MG/24 HOUR PATCH TD SCH (08:48)
[2022-05-25] MEDS: LORazepam 2 MG TABLET PO PRN ×3 (08:48→20:26)
[2022-05-25] MEDS: BACITRACIN 28 GM OINTMENT TP SCH ×2 (08:48→16:43)
[2022-05-25 16:00] VITALS: BP 131/71
[2022-05-25] MEDS: HALOPERIDOL 10 MG TABLET PO SCH (20:12)
[2022-05-25] MEDS: QUEtiapine FUMARATE 300 MG TABLET PO SCH (20:13)
[2022-05-26] MEDS: BENZTROPINE MESYLATE 1 MG TABLET PO SCH ×2 (08:45→20:41)
[2022-05-26] MEDS: VENLAFAXINE HCL 75 MG ER CAPSULE PO SCH (08:45)
[2022-05-26] MEDS: NICOTINE 14 MG/24 HOUR PATCH TD SCH (08:48)
[2022-05-26] MEDS: BACITRACIN 28 GM OINTMENT TP SCH ×2 (09:32→16:25)
[2022-05-26] MEDS: HALOPERIDOL 5 MG TABLET PO PRN ×2 (09:33→18:00)
[2022-05-26] MEDS: LORazepam 2 MG TABLET PO PRN ×2 (09:33→18:00)
[2022-05-26 10:37] VITALS: BP 103/69
[2022-05-26 16:47] VITALS: BP 128/86
[2022-05-26] MEDS: QUEtiapine FUMARATE 300 MG TABLET PO SCH (20:41)
[2022-05-26] MEDS: HALOPERIDOL 10 MG TABLET PO SCH (20:41)
[2022-05-27 07:11] LABS: COVID AG,FIA SOURCE NASAL SWAB
[2022-05-27] MEDS: VENLAFAXINE HCL 75 MG ER CAPSULE PO SCH (08:28)
[2022-05-27] MEDS: BACITRACIN 28 GM OINTMENT TP SCH ×2 (08:28→17:03)
[2022-05-27] MEDS: BENZTROPINE MESYLATE 1 MG TABLET PO SCH ×2 (08:28→21:20)
[2022-05-27] MEDS: NICOTINE 14 MG/24 HOUR PATCH TD SCH (08:28)
[2022-05-27] MEDS: HALOPERIDOL 5 MG TABLET PO PRN ×2 (08:29→15:21)
[2022-05-27] MEDS: LORazepam 2 MG TABLET PO PRN ×3 (08:56→21:55)
[2022-05-27 18:03] VITALS: BP 132/75
[2022-05-27] MEDS: HALOPERIDOL 10 MG TABLET PO SCH (21:20)
[2022-05-27] MEDS: QUEtiapine FUMARATE 300 MG TABLET PO SCH (21:21)
[2022-05-28 08:58] VITALS: BP 100/67
[2022-05-28] MEDS: VENLAFAXINE HCL 75 MG ER CAPSULE PO SCH (09:10)
[2022-05-28] MEDS: NICOTINE 14 MG/24 HOUR PATCH TD SCH (09:10)
[2022-05-28] MEDS: BENZTROPINE MESYLATE 1 MG TABLET PO SCH ×2 (09:10→20:51)
[2022-05-28] MEDS: BACITRACIN 28 GM OINTMENT TP SCH ×2 (09:10→16:40)
[2022-05-28] MEDS: HALOPERIDOL 5 MG TABLET PO PRN (09:28)
[2022-05-28] MEDS: LORazepam 2 MG TABLET PO PRN ×2 (09:28→13:40)
[2022-05-28 16:42] VITALS: BP 120/77
[2022-05-28] MEDS: QUEtiapine FUMARATE 300 MG TABLET PO SCH (20:51)
[2022-05-28] MEDS: HALOPERIDOL 10 MG TABLET PO SCH (20:51)
[2022-05-29] MEDS: BENZTROPINE MESYLATE 1 MG TABLET PO SCH ×2 (08:39→20:38)
[2022-05-29] MEDS: VENLAFAXINE HCL 75 MG ER CAPSULE PO SCH (08:39)
[2022-05-29] MEDS: LORazepam 2 MG TABLET PO PRN ×3 (08:39→17:54)
[2022-05-29] MEDS: HALOPERIDOL 5 MG TABLET PO PRN ×3 (08:39→17:54)
[2022-05-29] MEDS: NICOTINE 14 MG/24 HOUR PATCH TD SCH (08:44)
[2022-05-29] MEDS: BACITRACIN 28 GM OINTMENT TP SCH ×2 (09:00→17:54)
[2022-05-29 09:16] VITALS: BP 108/67
[2022-05-29 16:42] VITALS: BP 100/66
[2022-05-29] MEDS: HALOPERIDOL 10 MG TABLET PO SCH (20:38)
[2022-05-29] MEDS: QUEtiapine FUMARATE 300 MG TABLET PO SCH (20:38)
[2022-05-30 08:00] VITALS: BP 106/72
[2022-05-30] MEDS: LORazepam 2 MG TABLET PO PRN ×3 (08:57→17:10)
[2022-05-30] MEDS: VENLAFAXINE HCL 75 MG ER CAPSULE PO SCH (08:57)
[2022-05-30] MEDS: BENZTROPINE MESYLATE 1 MG TABLET PO SCH ×2 (08:57→21:19)
[2022-05-30] MEDS: HALOPERIDOL 5 MG TABLET PO PRN ×3 (08:58→17:10)
[2022-05-30] MEDS: NICOTINE 14 MG/24 HOUR PATCH TD SCH (09:02)
[2022-05-30] MEDS: BACITRACIN 28 GM OINTMENT TP SCH ×2 (09:58→17:10)
[2022-05-30 16:55] VITALS: BP 97/71
[2022-05-30] MEDS: HALOPERIDOL 10 MG TABLET PO SCH (21:20)
[2022-05-30] MEDS: QUEtiapine FUMARATE 300 MG TABLET PO SCH (21:20)
[2022-05-31 07:49] LABS: ANION GAP 3 mmol/L (8-16); CALCIUM, TOTAL 9.2 mg/dL (8.8-10.5); CARBON DIOXIDE 31 mmol/L (22-29); CHLORIDE 102 mmol/L (98-107); CREATININE 0.95 mg/dL (0.60-1.30); GLUCOSE,RANDOM 94 mg/dL (70-110); SODIUM SERUM 136 mmol/L (136-145); UREA NITROGEN, BLOOD 18 mg/dL (7-18)
[2022-05-31 07:51] LABS: GLOMERULAR FILTR. RATE CALC > 60 mL/min (>60)
[2022-05-31 08:00] VITALS: BP 96/67
[2022-05-31] MEDS: VENLAFAXINE HCL 75 MG ER CAPSULE PO SCH (08:19)
[2022-05-31] MEDS: BENZTROPINE MESYLATE 1 MG TABLET PO SCH ×2 (08:19→21:08)
[2022-05-31] MEDS: NICOTINE 14 MG/24 HOUR PATCH TD SCH (08:20)
[2022-05-31] MEDS: BACITRACIN 28 GM OINTMENT TP SCH ×2 (08:20→16:22)
[2022-05-31] MEDS: HALOPERIDOL 5 MG TABLET PO PRN ×2 (09:30→15:53)
[2022-05-31] MEDS: LORazepam 2 MG TABLET PO PRN ×3 (09:30→21:07)
[2022-05-31 16:00] VITALS: BP 145/83
[2022-05-31] MEDS: QUEtiapine FUMARATE 300 MG TABLET PO SCH (21:07)
[2022-05-31] MEDS: HALOPERIDOL 10 MG TABLET PO SCH (21:07)
[2022-06-01] MEDS: VENLAFAXINE HCL 75 MG ER CAPSULE PO SCH (08:28)
[2022-06-01] MEDS: BENZTROPINE MESYLATE 1 MG TABLET PO SCH ×2 (08:28→21:11)
[2022-06-01] MEDS: NICOTINE 14 MG/24 HOUR PATCH TD SCH (08:29)
[2022-06-01] MEDS: HALOPERIDOL 5 MG TABLET PO PRN ×2 (08:33→14:09)
[2022-06-01] MEDS: LORazepam 2 MG TABLET PO PRN ×2 (08:33→14:09)
[2022-06-01 09:42] VITALS: BP 97/65
[2022-06-01] MEDS: QUEtiapine FUMARATE 200 MG TABLET PO SCH (10:42)
[2022-06-01 16:00] VITALS: BP 114/76
[2022-06-01] MEDS: HALOPERIDOL 10 MG TABLET PO SCH (21:11)
[2022-06-01] MEDS: QUEtiapine FUMARATE 300 MG TABLET PO SCH (21:13)
[2022-06-02] MEDS: BENZTROPINE MESYLATE 1 MG TABLET PO SCH ×2 (08:22→20:53)
[2022-06-02] MEDS: QUEtiapine FUMARATE 200 MG TABLET PO SCH (08:22)
[2022-06-02] MEDS: VENLAFAXINE HCL 150 MG ER CAPSULE PO SCH (08:22)
[2022-06-02] MEDS: NICOTINE 14 MG/24 HOUR PATCH TD SCH (08:23)
[2022-06-02] MEDS: HALOPERIDOL 5 MG TABLET PO PRN ×2 (08:24→12:50)
[2022-06-02] MEDS: LORazepam 2 MG TABLET PO PRN ×3 (08:24→19:55)
[2022-06-02 10:04] VITALS: BP 111/81
[2022-06-02] MEDS: HALOPERIDOL 10 MG TABLET PO SCH (20:53)
[2022-06-02] MEDS: QUEtiapine FUMARATE 300 MG TABLET PO SCH (20:53)
[2022-06-03] MEDS: VENLAFAXINE HCL 150 MG ER CAPSULE PO SCH (08:09)
[2022-06-03] MEDS: QUEtiapine FUMARATE 200 MG TABLET PO SCH (08:12)
[2022-06-03] MEDS: HALOPERIDOL 5 MG TABLET PO PRN ×3 (08:12→16:16)
[2022-06-03] MEDS: NICOTINE 14 MG/24 HOUR PATCH TD SCH (08:12)
[2022-06-03] MEDS: BENZTROPINE MESYLATE 1 MG TABLET PO SCH ×2 (08:12→20:41)
[2022-06-03] MEDS: LORazepam 2 MG TABLET PO PRN ×4 (08:12→21:39)
[2022-06-03 08:54] LABS: COVID AG,FIA SOURCE NASAL SWAB
[2022-06-03 09:35] VITALS: BP 107/76
[2022-06-03 16:17] VITALS: BP 117/77
[2022-06-03] MEDS: HALOPERIDOL 10 MG TABLET PO SCH (20:41)
[2022-06-03] MEDS: QUEtiapine FUMARATE 300 MG TABLET PO SCH (20:41)
[2022-06-04] MEDS: QUEtiapine FUMARATE 200 MG TABLET PO SCH (08:14)
[2022-06-04] MEDS: LORazepam 2 MG TABLET PO PRN ×3 (08:14→16:20)
[2022-06-04] MEDS: VENLAFAXINE HCL 150 MG ER CAPSULE PO SCH (08:14)
[2022-06-04] MEDS: BENZTROPINE MESYLATE 1 MG TABLET PO SCH ×2 (08:14→20:37)
[2022-06-04] MEDS: NICOTINE 14 MG/24 HOUR PATCH TD SCH (08:15)
[2022-06-04] MEDS: HALOPERIDOL 5 MG TABLET PO PRN ×3 (08:16→16:20)
[2022-06-04 08:59] VITALS: BP 120/79
[2022-06-04 17:07] VITALS: BP 104/67
[2022-06-04] MEDS: QUEtiapine FUMARATE 300 MG TABLET PO SCH (20:37)
[2022-06-04] MEDS: HALOPERIDOL 10 MG TABLET PO SCH (20:37)
[2022-06-05 08:00] VITALS: BP 107/73
[2022-06-05] MEDS: BENZTROPINE MESYLATE 1 MG TABLET PO SCH ×2 (08:16→21:10)
[2022-06-05] MEDS: VENLAFAXINE HCL 150 MG ER CAPSULE PO SCH (08:16)
[2022-06-05] MEDS: NICOTINE 14 MG/24 HOUR PATCH TD SCH (08:17)
[2022-06-05] MEDS: QUEtiapine FUMARATE 200 MG TABLET PO SCH (08:17)
[2022-06-05] MEDS: LORazepam 2 MG TABLET PO PRN ×2 (08:20→16:05)
[2022-06-05] MEDS: HALOPERIDOL 5 MG TABLET PO PRN (16:05)
[2022-06-05 16:23] VITALS: BP 100/79
[2022-06-05] MEDS: HALOPERIDOL 10 MG TABLET PO SCH (21:11)
[2022-06-05] MEDS: QUEtiapine FUMARATE 300 MG TABLET PO SCH (21:11)
[2022-06-06 08:00] VITALS: BP 100/71
[2022-06-06] MEDS: BENZTROPINE MESYLATE 1 MG TABLET PO SCH ×2 (08:49→20:45)
[2022-06-06] MEDS: HALOPERIDOL 5 MG TABLET PO PRN ×2 (08:49→13:54)
[2022-06-06] MEDS: VENLAFAXINE HCL 150 MG ER CAPSULE PO SCH (08:49)
[2022-06-06] MEDS: LORazepam 2 MG TABLET PO PRN ×2 (08:51→13:54)
[2022-06-06] MEDS: NICOTINE 14 MG/24 HOUR PATCH TD SCH (08:53)
[2022-06-06] MEDS: QUEtiapine FUMARATE 200 MG TABLET PO SCH ×2 (09:00→20:46)
[2022-06-06 16:19] VITALS: BP 105/68
[2022-06-06] MEDS: HALOPERIDOL 10 MG TABLET PO SCH (20:45)
[2022-06-07 08:00] VITALS: BP 124/75
[2022-06-07] MEDS: BENZTROPINE MESYLATE 1 MG TABLET PO SCH ×2 (08:53→21:44)
[2022-06-07] MEDS: VENLAFAXINE HCL 150 MG ER CAPSULE PO SCH (08:53)
[2022-06-07] MEDS: NICOTINE 14 MG/24 HOUR PATCH TD SCH (08:53)
[2022-06-07] MEDS: HALOPERIDOL 5 MG TABLET PO PRN ×2 (09:18→15:40)
[2022-06-07] MEDS: LORazepam 2 MG TABLET PO PRN ×2 (09:19→15:39)
[2022-06-07 16:04] VITALS: BP 116/77
[2022-06-07] MEDS: BACITRACIN 28 GM OINTMENT TP SCH (16:04)
[2022-06-07] MEDS: HALOPERIDOL 10 MG TABLET PO SCH (21:43)
[2022-06-07] MEDS: HydrOXYzine PAMOATE 50 MG CAPSULE PO PRN (21:44)
[2022-06-07] MEDS: QUEtiapine FUMARATE 200 MG TABLET PO SCH (21:44)
[2022-06-08 09:08] VITALS: BP 107/68
[2022-06-08] MEDS: BENZTROPINE MESYLATE 1 MG TABLET PO SCH ×2 (09:10→20:29)
[2022-06-08] MEDS: VENLAFAXINE HCL 150 MG ER CAPSULE PO SCH (09:10)
[2022-06-08] MEDS: NICOTINE 14 MG/24 HOUR PATCH TD SCH (09:11)
[2022-06-08] MEDS: BACITRACIN 28 GM OINTMENT TP SCH ×2 (09:11→16:13)
[2022-06-08 16:25] VITALS: BP 105/73
[2022-06-08] MEDS ORDERED: TraZODone HCL 100 MG TABLET PO PRN (18:30)
[2022-06-08] MEDS: HALOPERIDOL 10 MG TABLET PO SCH (20:29)
[2022-06-08] MEDS: QUEtiapine FUMARATE 200 MG TABLET PO SCH (20:29)
[2022-06-09 08:00] VITALS: BP 96/62
[2022-06-09] MEDS: VENLAFAXINE HCL 150 MG ER CAPSULE PO SCH (09:17)
[2022-06-09] MEDS: BENZTROPINE MESYLATE 1 MG TABLET PO SCH ×2 (09:17→20:18)
[2022-06-09] MEDS: NICOTINE 14 MG/24 HOUR PATCH TD SCH (09:19)
[2022-06-09] MEDS: BACITRACIN 28 GM OINTMENT TP SCH ×2 (09:19→16:28)
[2022-06-09 16:44] VITALS: BP 117/70
[2022-06-09] MEDS: HALOPERIDOL 10 MG TABLET PO SCH (20:18)
[2022-06-09] MEDS: QUEtiapine FUMARATE 200 MG TABLET PO SCH (20:18)
[2022-06-10 06:57] LABS: COVID AG,FIA SOURCE NASAL SWAB
[2022-06-10 09:00] VITALS: BP 106/68
[2022-06-10] MEDS: VENLAFAXINE HCL 150 MG ER CAPSULE PO SCH (09:11)
[2022-06-10] MEDS: BACITRACIN 28 GM OINTMENT TP SCH ×2 (09:12→16:17)
[2022-06-10] MEDS: NICOTINE 14 MG/24 HOUR PATCH TD SCH (09:12)
[2022-06-10] MEDS: BENZTROPINE MESYLATE 1 MG TABLET PO SCH ×2 (09:12→20:41)
[2022-06-10] MEDS: HALOPERIDOL 5 MG TABLET PO PRN (13:24)
[2022-06-10] MEDS: HydrOXYzine PAMOATE 50 MG CAPSULE PO PRN (13:24)
[2022-06-10 16:10] VITALS: BP 107/66
[2022-06-10] MEDS: HALOPERIDOL 10 MG TABLET PO SCH (20:41)
[2022-06-10] MEDS: QUEtiapine FUMARATE 200 MG TABLET PO SCH (20:42)
[2022-06-11 08:13] VITALS: BP 109/71
[2022-06-11] MEDS: BENZTROPINE MESYLATE 1 MG TABLET PO SCH (09:11)
[2022-06-11] MEDS: VENLAFAXINE HCL 150 MG ER CAPSULE PO SCH (09:11)
[2022-06-11] MEDS: BACITRACIN 28 GM OINTMENT TP SCH (09:12)
[2022-06-11] MEDS: NICOTINE 14 MG/24 HOUR PATCH TD SCH (09:15)
[2022-06-11] MEDS ORDERED: QUET200T30 PO (13:07)
[2022-06-11] MEDS ORDERED: VENL150C4 PO (13:07)
[2022-06-11] MEDS ORDERED: BENZ1TAB96 PO (13:07)
== END 2022-06-11 14:10 | disposition home or self-care (01) | DRG 750 ==
LOC: EMS 15:51 → 3EI 18:53
PROVIDERS: ADMIT Psychiatry & Neurology Child & Adolescent Psychiatry; ATTEND Psychiatry & Neurology Child & Adolescent Psychiatry
DX: F25.1 Schizoaffective disorder, depressive type (principal); E87.1 Hypo-osmolality and hyponatremia; R45.851 Suicidal ideations; F10.10 Alcohol abuse, uncomplicated; F33.2 Major depressive disorder, recurrent severe without psychotic features; I10 Essential (primary) hypertension; S81.811A Laceration without foreign body, right lower leg, initial encounter; X58.XXXA Exposure to other specified factors, initial encounter; Z20.822 Contact with and (suspected) exposure to COVID-19; G40.89 Other seizures; D64.9 Anemia, unspecified; Y93.89 Activity, other specified; Y92.89 Other specified places as the place of occurrence of the external cause; Y99.8 Other external cause status; Z91.51 Personal history of suicidal behavior; Z79.899 Other long term (current) drug therapy; Z59.00 Homelessness unspecified
CPT/HCPCS: 80048; 80053; 83036; 85025; 87081; 90715; 99285; G0480

== ENCOUNTER 2022-12-27 16:38 | Inpatient (IN) | payer MEDICAID, OTHER ==
[~2022-12-27] VITALS: Ht 177.8 cm; Wt 100.5 kg
[~2022-12-27 16:38] MED LIST changes: +BENZ1TAB96 PO; -BUSP10TA23 PO; -FAMO20 PO; -GABA-1181 PO; -GABA-1201 PO; -LEVE500T20 PO; -LITH600C5 PO; -PARO-38 PO; -QUET200T PO; +QUET200T30 PO; +VENL150C4 PO
[2022-12-27] MEDS ORDERED: ESCI-8 PO (16:40)
[2022-12-27 18:08] LABS: BASOPHILS % (AUTO) 0.3 % (0.0-2.0); EOSINOPHILS % (AUTO) 1.7 % (1.0-6.0); HEMOGLOBIN 13.9 g/dL (13.5-17.5); LYMPHOCYTES # (AUTO) 1.1 K/uL (1.0-4.8); LYMPHOCYTES % (AUTO) 13.9 % (22.0-44.0); MEAN CORPUSCULAR HGB CONC 33.9 G/dL (31.0-37.0); MEAN CORPUSCULAR VOLUME 89 fL (80-100); MONOCYTES # (AUTO) 0.5 K/uL (0.1-1.0); MONOCYTES % (AUTO) 6.2 % (2.0-9.0); NEUTROPHILS # (AUTO) 6.3 K/uL (1.8-7.7); NEUTROPHILS % (AUTO) 77.9 % (40.0-70.0); PLATELET COUNT (AUTO) 211 K/uL (150-450); RED BLOOD CELL COUNT(AUTO) 4.62 MIL/uL (4.50-5.90); RED CELL DISTRIBUTION WIDTH 14.5 % (11.5-14.5)
[2022-12-27 18:20] LABS: ANION GAP 8 mmol/L (8-16); CARBON DIOXIDE 24 mmol/L (22-29); CHLORIDE 106 mmol/L (98-107); GLOMERULAR FILTR. RATE CALC > 60 mL/min (>60); GLUCOSE,RANDOM 110 mg/dL (70-110); POTASSIUM 4.3 mmol/L (3.5-5.1); SODIUM SERUM 138 mmol/L (136-145); UREA NITROGEN, BLOOD 13 mg/dL (7-18)
[2022-12-27 18:30] LABS: ALANINE AMINOTRANSFERASE 49 U/L (12-78); ALBUMIN 3.9 g/dL (3.4-5.0); ALKALINE PHOSPHATASE 97 U/L (46-116); ASPARTATE AMINOTRANSFERASE 48 U/L (15-37); BILIRUBIN,TOTAL 0.3 mg/dL (0.1-1.0); TOTAL PROTEIN, SERUM 7.1 g/dL (6.4-8.2)
[2022-12-27 20:36] LABS: COVID AG,FIA SOURCE NASOPHARYNGEAL
[2022-12-27] MEDS: LORazepam 2 MG TABLET PO PRN (23:14)
[2022-12-27] MEDS: HALOPERIDOL 5 MG TABLET PO PRN (23:14)
[2022-12-27 23:19] LABS: AMPHET/METH SCREEN,URINE NEGATIVE (NEGATIVE); BARBITURATE SCREEN, URINE NEGATIVE (NEGATIVE); BENZODIAZEPINES SCREEN,URINE NEGATIVE (NEGATIVE); CANNABINOID SCREEN,URINE NEGATIVE (NEGATIVE); COCAINE SCREEN,URINE NEGATIVE (NEGATIVE); METHADONE SCREEN, URINE NEGATIVE (NEGATIVE); OPIATE SCREEN,URINE NEGATIVE (NEGATIVE); PHENCYCLIDINE SCREEN,URINE NEGATIVE (NEGATIVE)
[2022-12-27 23:22] LABS: APPEARANCE,URINE TURBID (CLEAR); BILIRUBIN,URINE NEGATIVE (NEGATIVE); GLUCOSE, URINE (UA) TRACE mg/dL (NEGATIVE); KETONES,URINE NEGATIVE (NEGATIVE); LEUKOCYTE ESTERASE ,URINE NEGATIVE (NEGATIVE); NITRATE,URINE NEGATIVE (NEGATIVE); OCCULT BLOOD,URINE NEGATIVE (NEGATIVE); PH,URINE 7.5 (5.0-8.0); PROTEIN,URINE TRACE mg/dL (NEGATIVE); SPECIFIC GRAVITIY, URINE 1.017 (1.003-1.030); UROBILINOGEN,URINE <=1.0 mg/dL (<=1.0)
[2022-12-27 23:36] LABS: AMORPHOUS SEDIMENT,UR Moderate /LPF (None Seen); BACTERIA,URINE Rare /HPF (None Seen); RBC,URINE 0-2 /HPF (0-2); SQUAMOUS EPITHELIAL CELL,UR Few /LPF (None Seen); WBC,URINE 0-2 /HPF (0-5)
[2022-12-28 01:09] VITALS: BP 128/85
[2022-12-28] MEDS ORDERED: OMEPRAZOLE 20 MG CAPSULE PO PRN (09:45)
[2022-12-28] MEDS ORDERED: IBUPROFEN 600 MG TABLET PO PRN (09:45)
[2022-12-28] MEDS ORDERED: LOPERAMIDE HCL 2 MG CAPSULE PO PRN (09:45)
[2022-12-28] MEDS ORDERED: DOCUSATE SODIUM 100 MG CAPSULE PO PRN (09:45)
[2022-12-28] MEDS ORDERED: MAGNESIUM HYDROXIDE SUSPENSION 30 ML UDCUP PO PRN (09:45)
[2022-12-28] MEDS ORDERED: PETROLATUM,WHITE 28 GM JELLY TP PRN (09:45)
[2022-12-28] MEDS ORDERED: BACITRACIN 28 GM OINTMENT TP PRN (09:45)
[2022-12-28] MEDS ORDERED: ACETAMINOPHEN 325 MG TABLET PO PRN (09:45)
[2022-12-28] MEDS ORDERED: ONDANSETRON HCL 4 MG TABLET PO PRN (09:45)
[2022-12-28] MEDS ORDERED: MAG HYDROX/AL HYDROX/SIMETH ES 30 ML SUSPENSION UDCUP PO PRN (09:45)
[2022-12-28] MEDS ORDERED: ALBUTEROL SULFATE HFA 90 MCG/PUFF 8 GM INHALER IH PRN (09:45)
[2022-12-28] MEDS ORDERED: CloNIDine HCL 0.1 MG TABLET PO PRN (09:45)
[2022-12-28] MEDS ORDERED: BENZOCAINE/MENTHOL LOZENGE PO PRN (09:45)
[2022-12-28] MEDS: HALOPERIDOL 5 MG TABLET PO PRN ×3 (09:53→19:55)
[2022-12-28] MEDS: LORazepam 2 MG TABLET PO PRN ×3 (09:53→19:55)
[2022-12-28 10:35] VITALS: BP 133/67
[2022-12-28] MEDS: BENZTROPINE MESYLATE 1 MG TABLET PO SCH ×2 (10:53→17:37)
[2022-12-28] MEDS: LamoTRIgine 100 MG TABLET PO SCH (10:54)
[2022-12-28] MEDS: VENLAFAXINE HCL 150 MG ER CAPSULE PO SCH (10:54)
[2022-12-28] MEDS: NICOTINE 21 MG/24 HOUR PATCH TD SCH (10:56)
[2022-12-28] MEDS: GABAPENTIN 300 MG CAPSULE PO SCH ×2 (12:39→17:37)
[2022-12-28 16:07] VITALS: BP 108/66
[2022-12-28 20:14] VITALS: BP 128/72
[2022-12-28] MEDS: QUEtiapine FUMARATE 300 MG TABLET PO SCH (21:16)
[2022-12-28] MEDS: ZOLPIDEM TARTRATE 10 MG TABLET PO PRN (21:49)
[2022-12-29 08:51] VITALS: BP 111/78
[2022-12-29] MEDS: LamoTRIgine 100 MG TABLET PO SCH (09:08)
[2022-12-29] MEDS: BENZTROPINE MESYLATE 1 MG TABLET PO SCH ×2 (09:08→17:14)
[2022-12-29] MEDS: LORazepam 2 MG TABLET PO PRN ×3 (09:08→17:17)
[2022-12-29] MEDS: NICOTINE 21 MG/24 HOUR PATCH TD SCH (09:08)
[2022-12-29] MEDS: VENLAFAXINE HCL 150 MG ER CAPSULE PO SCH (09:08)
[2022-12-29] MEDS: GABAPENTIN 300 MG CAPSULE PO SCH ×3 (09:08→17:15)
[2022-12-29 16:12] VITALS: BP 113/71
[2022-12-29] MEDS: QUEtiapine FUMARATE 300 MG TABLET PO SCH (20:24)
[2022-12-29 22:11] VITALS: BP 121/71
[2022-12-30] MEDS: LamoTRIgine 100 MG TABLET PO SCH (08:20)
[2022-12-30] MEDS: VENLAFAXINE HCL 150 MG ER CAPSULE PO SCH (08:21)
[2022-12-30] MEDS: GABAPENTIN 300 MG CAPSULE PO SCH ×3 (08:21→16:53)
[2022-12-30] MEDS: BENZTROPINE MESYLATE 1 MG TABLET PO SCH ×2 (08:21→16:53)
[2022-12-30] MEDS: NICOTINE 21 MG/24 HOUR PATCH TD SCH (08:22)
[2022-12-30 09:30] VITALS: BP 114/70
[2022-12-30] MEDS: LORazepam 2 MG TABLET PO PRN ×3 (09:32→20:15)
[2022-12-30] MEDS ORDERED: QUET300T19 PO (11:34)
[2022-12-30] MEDS ORDERED: VENL-67 PO (11:34)
[2022-12-30] MEDS ORDERED: LAMO200T10 PO (11:34)
[2022-12-30] MEDS ORDERED: GABA600T10 PO (11:34)
[2022-12-30] MEDS ORDERED: HALO10TA21 PO (11:34)
[2022-12-30 16:00] VITALS: BP 137/89
[2022-12-30] MEDS: HALOPERIDOL 5 MG TABLET PO PRN (20:15)
[2022-12-30 20:55] VITALS: BP 140/91
[2022-12-30] MEDS: QUEtiapine FUMARATE 300 MG TABLET PO SCH (21:46)
[2022-12-30] MEDS: ZOLPIDEM TARTRATE 10 MG TABLET PO PRN (22:07)
[2022-12-31 08:00] VITALS: BP 125/86
[2022-12-31] MEDS: GABAPENTIN 300 MG CAPSULE PO SCH ×3 (08:06→16:38)
[2022-12-31] MEDS: BENZTROPINE MESYLATE 1 MG TABLET PO SCH ×2 (08:06→16:37)
[2022-12-31] MEDS: VENLAFAXINE HCL 150 MG ER CAPSULE PO SCH (08:07)
[2022-12-31] MEDS: LamoTRIgine 100 MG TABLET PO SCH (08:12)
[2022-12-31] MEDS: NICOTINE 21 MG/24 HOUR PATCH TD SCH (08:13)
[2022-12-31] MEDS: LORazepam 2 MG TABLET PO PRN ×2 (08:21→12:24)
[2022-12-31 16:00] VITALS: BP 148/69
[2022-12-31] MEDS: ZOLPIDEM TARTRATE 10 MG TABLET PO PRN (21:12)
[2022-12-31] MEDS: QUEtiapine FUMARATE 300 MG TABLET PO SCH (21:12)
[2022-12-31 23:24] VITALS: BP 116/77
[2023-01-01] MEDS: GABAPENTIN 300 MG CAPSULE PO SCH ×3 (08:17→17:54)
[2023-01-01] MEDS: VENLAFAXINE HCL 150 MG ER CAPSULE PO SCH (08:17)
[2023-01-01] MEDS: NICOTINE 21 MG/24 HOUR PATCH TD SCH (08:18)
[2023-01-01] MEDS: LamoTRIgine 100 MG TABLET PO SCH (08:18)
[2023-01-01] MEDS: BENZTROPINE MESYLATE 1 MG TABLET PO SCH ×2 (08:18→17:54)
[2023-01-01 09:20] VITALS: BP 107/73
[2023-01-01] MEDS: HALOPERIDOL 5 MG TABLET PO PRN (12:39)
[2023-01-01 16:10] VITALS: BP 101/75
[2023-01-01 20:29] VITALS: BP 101/72
[2023-01-01] MEDS: QUEtiapine FUMARATE 300 MG TABLET PO SCH (21:09)
[2023-01-01] MEDS: ZOLPIDEM TARTRATE 10 MG TABLET PO PRN (21:10)
[2023-01-01] MEDS: LORazepam 2 MG TABLET PO PRN (21:48)
[2023-01-02 07:54] LABS: COVID AG,FIA SOURCE NASAL SWAB
[2023-01-02] MEDS: LORazepam 2 MG TABLET PO PRN ×3 (07:57→18:52)
[2023-01-02] MEDS: LamoTRIgine 100 MG TABLET PO SCH (07:57)
[2023-01-02] MEDS: GABAPENTIN 300 MG CAPSULE PO SCH ×3 (07:57→18:20)
[2023-01-02] MEDS: BENZTROPINE MESYLATE 1 MG TABLET PO SCH ×2 (07:57→18:20)
[2023-01-02] MEDS: VENLAFAXINE HCL 150 MG ER CAPSULE PO SCH (07:57)
[2023-01-02 08:00] VITALS: BP 116/68
[2023-01-02] MEDS: NICOTINE 21 MG/24 HOUR PATCH TD SCH (08:01)
[2023-01-02 16:09] VITALS: BP 123/78
[2023-01-02] MEDS: QUEtiapine FUMARATE 300 MG TABLET PO SCH (20:52)
[2023-01-02 22:01] VITALS: BP 120/75
[2023-01-03] MEDS: LORazepam 2 MG TABLET PO PRN ×4 (05:20→21:45)
[2023-01-03] MEDS: VENLAFAXINE HCL 150 MG ER CAPSULE PO SCH (08:33)
[2023-01-03] MEDS: BENZTROPINE MESYLATE 1 MG TABLET PO SCH ×2 (08:33→16:48)
[2023-01-03] MEDS: LamoTRIgine 100 MG TABLET PO SCH (08:34)
[2023-01-03] MEDS: GABAPENTIN 300 MG CAPSULE PO SCH ×3 (08:34→16:48)
[2023-01-03] MEDS: NICOTINE 21 MG/24 HOUR PATCH TD SCH (08:34)
[2023-01-03 08:45] VITALS: BP 105/69
[2023-01-03 11:31] VITALS: BP 126/86
[2023-01-03] MEDS: HALOPERIDOL 5 MG TABLET PO PRN ×2 (11:33→17:53)
[2023-01-03 16:13] VITALS: BP 101/59
[2023-01-03] MEDS: QUEtiapine FUMARATE 300 MG TABLET PO SCH (21:14)
[2023-01-03] MEDS: ZOLPIDEM TARTRATE 10 MG TABLET PO PRN (22:10)
[2023-01-04] MEDS: LORazepam 2 MG TABLET PO PRN ×4 (07:55→21:02)
[2023-01-04] MEDS: GABAPENTIN 300 MG CAPSULE PO SCH ×3 (07:55→16:30)
[2023-01-04] MEDS: BENZTROPINE MESYLATE 1 MG TABLET PO SCH ×2 (07:56→16:30)
[2023-01-04] MEDS: NICOTINE 21 MG/24 HOUR PATCH TD SCH (07:56)
[2023-01-04 08:06] VITALS: BP 125/74
[2023-01-04] MEDS: LamoTRIgine 100 MG TABLET PO SCH (08:34)
[2023-01-04] MEDS: VENLAFAXINE HCL 150 MG ER CAPSULE PO SCH (08:34)
[2023-01-04] MEDS: HALOPERIDOL 5 MG TABLET PO PRN ×2 (14:16→21:02)
[2023-01-04 16:20] VITALS: BP 142/92
[2023-01-04 20:32] VITALS: BP 123/77
[2023-01-04] MEDS: QUEtiapine FUMARATE 300 MG TABLET PO SCH (21:01)
[2023-01-04] MEDS: LITHIUM CARBONATE 300 MG CAPSULE PO SCH (21:02)
[2023-01-04] MEDS: ZOLPIDEM TARTRATE 10 MG TABLET PO PRN (21:32)
[2023-01-05] MEDS: LITHIUM CARBONATE 300 MG CAPSULE PO SCH ×2 (08:26→20:14)
[2023-01-05] MEDS: GABAPENTIN 300 MG CAPSULE PO SCH ×3 (08:27→17:41)
[2023-01-05] MEDS: LamoTRIgine 100 MG TABLET PO SCH (08:27)
[2023-01-05] MEDS: NICOTINE 21 MG/24 HOUR PATCH TD SCH (08:27)
[2023-01-05] MEDS: VENLAFAXINE HCL 150 MG ER CAPSULE PO SCH (08:27)
[2023-01-05] MEDS: BENZTROPINE MESYLATE 1 MG TABLET PO SCH ×2 (08:27→17:41)
[2023-01-05] MEDS: LORazepam 2 MG TABLET PO PRN ×2 (08:31→13:07)
[2023-01-05] MEDS: HALOPERIDOL 5 MG TABLET PO PRN ×2 (08:31→13:07)
[2023-01-05 08:34] VITALS: BP 122/58
[2023-01-05 16:20] VITALS: BP 123/82
[2023-01-05 20:14] VITALS: BP 124/76
[2023-01-05] MEDS: QUEtiapine FUMARATE 300 MG TABLET PO SCH (20:15)
[2023-01-05] MEDS: ZOLPIDEM TARTRATE 10 MG TABLET PO PRN (22:01)
[2023-01-06] MEDS: HALOPERIDOL 5 MG TABLET PO PRN ×2 (05:18→19:15)
[2023-01-06] MEDS: LORazepam 2 MG TABLET PO PRN (05:18)
[2023-01-06 08:08] VITALS: BP 117/84
[2023-01-06] MEDS: VENLAFAXINE HCL 150 MG ER CAPSULE PO SCH (08:26)
[2023-01-06] MEDS: GABAPENTIN 300 MG CAPSULE PO SCH ×3 (08:26→16:36)
[2023-01-06] MEDS: BENZTROPINE MESYLATE 1 MG TABLET PO SCH ×2 (08:26→16:36)
[2023-01-06] MEDS: NICOTINE 21 MG/24 HOUR PATCH TD SCH (08:26)
[2023-01-06] MEDS: LITHIUM CARBONATE 300 MG CAPSULE PO SCH ×2 (08:26→20:41)
[2023-01-06] MEDS: LamoTRIgine 100 MG TABLET PO SCH (08:26)
[2023-01-06] MEDS: LORazepam 1 MG TABLET PO PRN ×2 (12:53→19:15)
[2023-01-06 16:07] VITALS: BP 106/72
[2023-01-06] MEDS: QUEtiapine FUMARATE 300 MG TABLET PO SCH (20:41)
[2023-01-06] MEDS: ZOLPIDEM TARTRATE 10 MG TABLET PO PRN (21:18)
[2023-01-07] MEDS: VENLAFAXINE HCL 150 MG ER CAPSULE PO SCH (07:55)
[2023-01-07] MEDS: LamoTRIgine 100 MG TABLET PO SCH (07:55)
[2023-01-07] MEDS: BENZTROPINE MESYLATE 1 MG TABLET PO SCH ×2 (07:57→18:06)
[2023-01-07] MEDS: LORazepam 1 MG TABLET PO PRN ×2 (07:57→13:58)
[2023-01-07] MEDS: LITHIUM CARBONATE 300 MG CAPSULE PO SCH ×2 (07:57→18:07)
[2023-01-07] MEDS: HALOPERIDOL 5 MG TABLET PO PRN ×2 (07:58→12:49)
[2023-01-07] MEDS: GABAPENTIN 300 MG CAPSULE PO SCH ×3 (07:58→18:06)
[2023-01-07] MEDS: NICOTINE 21 MG/24 HOUR PATCH TD SCH (08:04)
[2023-01-07 08:32] VITALS: BP 102/67
[2023-01-07 16:06] VITALS: BP 101/59
[2023-01-07] MEDS: QUEtiapine FUMARATE 300 MG TABLET PO SCH (20:56)
[2023-01-07] MEDS: ZOLPIDEM TARTRATE 10 MG TABLET PO PRN (20:56)
[2023-01-08] MEDS: LORazepam 1 MG TABLET PO PRN ×3 (05:24→18:31)
[2023-01-08] MEDS: BENZTROPINE MESYLATE 1 MG TABLET PO SCH ×2 (08:12→17:14)
[2023-01-08] MEDS: LITHIUM CARBONATE 300 MG CAPSULE PO SCH ×3 (08:12→17:14)
[2023-01-08] MEDS: LamoTRIgine 100 MG TABLET PO SCH (08:13)
[2023-01-08] MEDS: GABAPENTIN 300 MG CAPSULE PO SCH ×3 (08:13→17:13)
[2023-01-08] MEDS: VENLAFAXINE HCL 150 MG ER CAPSULE PO SCH (08:13)
[2023-01-08] MEDS: HALOPERIDOL 5 MG TABLET PO PRN ×2 (08:16→18:32)
[2023-01-08] MEDS: NICOTINE 21 MG/24 HOUR PATCH TD SCH (08:19)
[2023-01-08 08:23] VITALS: BP 108/76
[2023-01-08 16:18] VITALS: BP 113/74
[2023-01-08] MEDS: ZOLPIDEM TARTRATE 10 MG TABLET PO PRN (20:26)
[2023-01-08] MEDS: QUEtiapine FUMARATE 300 MG TABLET PO SCH (20:27)
[2023-01-08 20:46] VITALS: BP 121/76
[2023-01-09] MEDS: LORazepam 1 MG TABLET PO PRN ×2 (02:08→08:08)
[2023-01-09 06:40] LABS: COVID AG,FIA SOURCE NASAL SWAB
[2023-01-09] MEDS: LamoTRIgine 100 MG TABLET PO SCH (08:05)
[2023-01-09] MEDS: GABAPENTIN 300 MG CAPSULE PO SCH ×2 (08:05→12:24)
[2023-01-09] MEDS: BENZTROPINE MESYLATE 1 MG TABLET PO SCH (08:05)
[2023-01-09] MEDS: LITHIUM CARBONATE 300 MG CAPSULE PO SCH ×2 (08:05→12:24)
[2023-01-09] MEDS: VENLAFAXINE HCL 150 MG ER CAPSULE PO SCH (08:05)
[2023-01-09] MEDS: HALOPERIDOL 5 MG TABLET PO PRN (08:08)
[2023-01-09] MEDS: NICOTINE 21 MG/24 HOUR PATCH TD SCH (08:08)
[2023-01-09 09:10] VITALS: BP 122/69
[2023-01-09] MEDS ORDERED: LITH300C3 PO (14:24)
[2023-01-09] MEDS ORDERED: GABA-1181 PO (14:25)
[2023-01-09] MEDS ORDERED: QUET300T2 PO (14:25)
[2023-01-09] MEDS ORDERED: BENZ1TAB96 PO (14:26)
[2023-01-09] MEDS ORDERED: LAMO200T PO (14:26)
[2023-01-09] MEDS ORDERED: VENL-68 PO (14:27)
== END 2023-01-09 18:00 | disposition home or self-care (01) | DRG 753 ==
LOC: EMS 16:43 → 3EI 12-28 00:01 → 3EC 01-03 19:12
PROVIDERS: ADMIT Psychiatry & Neurology Psychiatry; ATTEND Psychiatry & Neurology Psychiatry
PROC: GZHZZZZ Group Psychotherapy (ICD-10-PCS; principal; 2022-12-28)
DX: F31.9 Bipolar disorder, unspecified (principal); F22 Delusional disorders; R45.851 Suicidal ideations; K74.60 Unspecified cirrhosis of liver; F25.9 Schizoaffective disorder, unspecified; Z20.822 Contact with and (suspected) exposure to COVID-19; F10.20 Alcohol dependence, uncomplicated; E78.00 Pure hypercholesterolemia, unspecified; F41.9 Anxiety disorder, unspecified; K21.9 Gastro-esophageal reflux disease without esophagitis; E55.9 Vitamin D deficiency, unspecified; X78.9XXA Intentional self-harm by unspecified sharp object, initial encounter; K59.00 Constipation, unspecified; Y90.0 Blood alcohol level of less than 20 mg/100 ml
CPT/HCPCS: 70450; 80053; 80178; 80307; 81001; 85025; 99285; G0480

== ENCOUNTER 2023-10-25 08:31 | Emergency (ER) | payer MEDICAID, OTHER ==
[~2023-10-25] VITALS: Ht 175.3 cm; Wt 93.2 kg
[~2023-10-25 08:31] MED LIST changes: +BENZ1TAB84 PO; -BENZ1TAB96 PO; +GABA-1181 PO; +LAMO200T PO; +LITH300C3 PO; -QUET200T30 PO; +QUET300T2 PO; +VENL-68 PO; -VENL150C4 PO
[2023-10-25 08:35] VITALS: TEMP 98.5
[2023-10-25 09:07] LABS: BASOPHILS % (AUTO) 0.8 % (0.0-2.0); EOSINOPHILS % (AUTO) 3.9 % (1.0-6.0); HEMATOCRIT 40.7 % (41-53); HEMOGLOBIN 13.7 g/dL (13.5-17.5); LYMPHOCYTES # (AUTO) 1.1 K/uL (1.0-4.8); LYMPHOCYTES % (AUTO) 26.1 % (22.0-44.0); MEAN CORPUSCULAR HEMOGLOBIN 29.5 pg (26.0-34.0); MEAN CORPUSCULAR HGB CONC 33.7 G/dL (31.0-37.0); MEAN CORPUSCULAR VOLUME 87 fL (80-100); MONOCYTES # (AUTO) 0.3 K/uL (0.1-1.0); NEUTROPHILS # (AUTO) 2.5 K/uL (1.8-7.7); NEUTROPHILS % (AUTO) 61.2 % (40.0-70.0); PLATELET COUNT (AUTO) 199 K/uL (150-450); RED BLOOD CELL COUNT(AUTO) 4.66 MIL/uL (4.50-5.90); RED CELL DISTRIBUTION WIDTH 13.8 % (11.5-14.5); WHITE BLOOD COUNT (AUTO) 4.1 K/uL (4.5-11.0)
[2023-10-25 09:30] LABS: ANION GAP 10 mmol/L (8-16); CARBON DIOXIDE 25 mmol/L (22-29); CHLORIDE 102 mmol/L (98-107); CREATININE 0.98 mg/dL (0.60-1.30); GLOMERULAR FILTR. RATE CALC > 60 mL/min (>60); GLUCOSE,RANDOM 115 mg/dL (70-110); POTASSIUM 3.9 mmol/L (3.5-5.1); SODIUM SERUM 137 mmol/L (136-145); UREA NITROGEN, BLOOD 17 mg/dL (7-18)
[2023-10-25 09:31] LABS: ALCOHOL, BLOOD (SERUM) < 3 mg/dL (0-10)
[2023-10-25] MEDS: MAG HYDROX/ALUMINUM HYD/SIMETH 30 ML SUSPENSION UDCUP PO ONE (09:31)
[2023-10-25] MEDS: ACETAMINOPHEN 500 MG TABLET PO ONE (09:31)
[2023-10-25] MEDS: FAMOTIDINE 20 MG TABLET PO ONE (09:32)
[2023-10-25] MEDS ORDERED: OMEP20 PO (09:32)
[2023-10-25] MEDS ORDERED: ONDA-104 PO (09:32)
[2023-10-25 09:36] LABS: ALANINE AMINOTRANSFERASE 63 U/L (12-78); ALBUMIN 3.7 g/dL (3.4-5.0); ALKALINE PHOSPHATASE 120 U/L (46-116); ASPARTATE AMINOTRANSFERASE 23 U/L (15-37); BILIRUBIN,TOTAL 0.2 mg/dL (0.1-1.0); LIPASE 22 U/L (16-77); TOTAL PROTEIN, SERUM 6.8 g/dL (6.4-8.2)
[2023-10-25 10:25] VITALS: BP 125/76; PULSE 88; RESP 18
== END 2023-10-25 10:26 | disposition home or self-care (01) ==
LOC: EMS 08:50
DX: R10.13 Epigastric pain (principal); R11.0 Nausea; F41.9 Anxiety disorder, unspecified; F31.9 Bipolar disorder, unspecified
CPT/HCPCS: 99284; 80053; 83690; 85025; 36415; G0480